=== PATIENT | female | born 1980 | race African-American/Black ===

== ENCOUNTER 2016-08-17 04:45 | Inpatient (IN) | payer MEDICAID ==
[2016-08-17 06:02] VITALS: BP 190/92
[2016-08-17] MEDS: Sodium Chloride 0.9% 1,000 ML IV SCH ×2 (07:30→17:11)
[2016-08-17 07:38] LABS: HEMOGLOBIN 8.3 gm/dL (11.7-15.5); MEAN CELL VOLUME 72.8 fl (81-100); MEAN CORPUSCULAR HEMOGLOBIN 24.2 pg (27.0-31.0); MEAN CORPUSCULAR HGB CONC 33.3 pg (28.0-36.0); MEAN PLATELET VOLUME 7.2 fl; PLATELET COUNT 558 Th/cmm (150-400); RED BLOOD COUNT 3.44 Mil/cmm (3.80-5.10); RED CELL DISTRIBUTION WIDTH 13.3 % (11.5-20.0); WHITE BLOOD COUNT 16.2 Th/cmm (4.8-10.8)
[2016-08-17 07:45] LABS: ALB/GLOB RATIO 0.6 (1.0-1.8); ANION GAP 5.2 (7.0-16.0); BILIRUBIN,TOTAL 0.1 mg/dL (0.3-1.0); BUN/CREATININE RATIO 6.4; CALCIUM SERUM 8.2 mg/dL (8.6-10.3); CARBON DIOXIDE 20.1 mEq/L (21.0-31.0); CREATININE - SERUM 2.2 mg/dL (0.6-1.2); POTASSIUM SERUM 3.3 mEq/L (3.5-5.1)
[2016-08-17] MEDS: HYDROmorphone 1 mg/mL 1mL Syr IVP PRN ×2 (08:30→18:35)
[2016-08-17 08:34] LABS: ANISOCYTOSIS 1+; BAND NEUTROPHILE 2 % (0-10); EOSINOPHIL 2 % (0-5); NEUTROPHILS 75 % (40-80); PLATELET ESTIMATE INCREASED PLATELETS (NORMAL); PLATELET MORPHOLOGY GIANT PLATELETS SEEN (NORMAL); TOTAL CELLS COUNTED 100
[2016-08-17] MEDS ORDERED: Potassium Phosphate 20 MMOLE in Sodium Chloride 0.9% 250 ML IV ONE (08:49)
[2016-08-17] MEDS ORDERED: cefTRIAXone 1 GM in Sodium Chloride 0.9% 50 ML IV SCH (09:00)
[2016-08-17] MEDS ORDERED: KCL 20mEq/100mL Premix 20 MEQ/100 ML PIGGYBACK IV ONE (10:04)
--- NOTE | 2016-08-17 10:31 | Infectious Disease Prog Note ---
Infectious Disease Subjective - Review of Systems Service Date: 08/17/16 Subjective: [id number] Infectious Disease Objective - Results Result Diagrams: 08/17/16 06:56 08/17/16 06:56 Recent Labs: Laboratory Last Values WBC 16.2 Th/cmm (4.8-10.8) H 08/17/16 06:56 RBC 3.44 Mil/cmm (3.80-5.10) L 08/17/16 06:56 Hgb 8.3 gm/dL (11.7-15.5) L 08/17/16 06:56 Hct 25.0 % (35.0-45.0) L 08/17/16 06:56 MCV 72.8 fl (81-100) L 08/17/16 06:56 MCH 24.2 pg (27.0-31.0) L 08/17/16 06:56 MCHC Differential 33.3 pg (28.0-36.0) 08/17/16 06:56 RDW 13.3 % (11.5-20.0) 08/17/16 06:56 Plt Count 558 Th/cmm (150-400) H 08/17/16 06:56 MPV 7.2 fl 08/17/16 06:56 Band Neutrophils % 2 % (0-10) 08/17/16 06:56 Neutrophils (Manual) 75 % (40-80) 08/17/16 06:56 Lymphocytes 15 % (20-50) L 08/17/16 06:56 Monocytes 6 % (2-10) 08/17/16 06:56 Eosinophils 2 % (0-5) 08/17/16 06:56 Platelet Estimate INCREASED PLATELETS (NORMAL) 08/17/16 06:56 Platelet Morphology GIANT PLATELETS SEEN (NORMAL) 08/17/16 06:56 Anisocytosis 1+ 08/17/16 06:56 RBC Morph Micro Appear ABNORMAL (NORMAL) 08/17/16 06:56 Sodium 133 mEq/L (136-145) L 08/17/16 06:56 Potassium 3.3 mEq/L (3.5-5.1) L 08/17/16 06:56 Chloride 111 mEq/L (98-107) H 08/17/16 06:56 Carbon Dioxide 20.1 mEq/L (21.0-31.0) L 08/17/16 06:56 Anion Gap 5.2 (7.0-16.0) L 08/17/16 06:56 BUN 14 mg/dL (7-25) 08/17/16 06:56 Creatinine 2.2 mg/dL (0.6-1.2) H 08/17/16 06:56 Est GFR ( Amer) 32.5 ml/min 08/17/16 06:56 Est GFR (Non-Af Amer) 26.8 ml/min 08/17/16 06:56 BUN/Creatinine Ratio 6.4 08/17/16 06:56 Glucose 282 mg/dL (70-105) H 08/17/16 06:56 Hemoglobin A1c % 14.5 % (4.0-6.0) H 08/17/16 06:56 Calcium 8.2 mg/dL (8.6-10.3) L 08/17/16 06:56 Total Bilirubin 0.1 mg/dL (0.3-1.0) L 08/17/16 06:56 AST 9 U/L (13-39) L 08/17/16 06:56 ALT 7 U/L (7-52) 08/17/16 06:56 Alkaline Phosphatase 132 U/L (34-104) H 08/17/16 06:56 Total Protein 6.1 gm/dL (6.0-8.3) 08/17/16 06:56 Albumin 2.2 gm/dL (3.7-5.3) L 08/17/16 06:56 Globulin 3.9 gm/dL 08/17/16 06:56 Albumin/Globulin Ratio 0.6 (1.0-1.8) L 08/17/16 06:56 - Physical Exam Vitals and I&O: Vital Signs Temp 99.0 F 08/17/16 08:00 Pulse 116 08/17/16 08:49 Resp 19 08/17/16 08:00 BP 160/94 08/17/16 08:00 Pulse Ox 99 08/17/16 08:00 Intake & Output 08/16/16 08/17/16 08/17/16 18:59 06:59 18:59 Weight (lbs) 81.647 kg Active Medications: Current Medications Clonidine HCl (Catapres) 0.1 mg PO Q8HR PRN PRN Reason: SBP GREATER THAN 160 Stop: 10/16/16 06:25 Last Admin: 08/17/16 08:49 Dose: 0.1 mg Hydromorphone HCl (Dilaudid) 1 mg IVP Q6HR PRN PRN Reason: Pain (Moderate) Stop: 10/16/16 06:23 Last Admin: 08/17/16 08:30 Dose: 1 mg Sodium Chloride (Nacl 0.9%) 1,000 mls @ 100 mls/hr IV .Q10H [facility] Stop: 10/16/16 06:29 Last Admin: 08/17/16 07:30 Dose: 100 mls/hr Metronidazole (Flagyl) 500 mg in 100 mls @ 100 mls/hr IV Q8HR [facility] Stop: 10/16/16 12:59 Ceftriaxone Sodium 1 gm/ (Sodium Chloride) 50 mls @ 100 mls/hr IV Q24HR [facility] Stop: 10/16/16 08:59 Potassium Chloride (Potassium Chloride) 20 meq in 100 mls @ 50 mls/hr IV X1 ONE Stop: 08/17/16 12:03 Insulin Aspart (Novolog Insulin Sliding Scale) 0 units SUBQ Q6HR [facility] PRN Reason: Protocol Stop: 10/16/16 11:59 Ondansetron HCl (Zofran) 4 mg IV Q6H PRN PRN Reason: Nausea / Vomiting Stop: 10/16/16 06:22 Last Admin: 08/17/16 08:40 Dose: 4 mg
[2016-08-17] MEDS: cefTRIAXone 1 GM in 0.9% NS 50 ML IV SCH (11:00)
--- NOTE | 2016-08-17 11:01 | Diagnostic Imaging Report ---
Portable chest x-ray History: Cough Allowing for portable technique the heart size is normal. No focal pulmonary parenchymal processes. No hilar or mediastinal abnormalities. Impression: No acute abnormalities.
--- NOTE | 2016-08-17 11:31 | History & Physical ---
CHIEF COMPLAINT: Fever, nausea and vomiting. HISTORY OF PRESENT ILLNESS: This is the case of a 36-year-old female referred 3 days ago when she started with fever, diarrhea, reason why she went to [facility]. The patient was transferred to the hospital to continue treatment. PAST MEDICAL HISTORY: Diabetes mellitus, type 1, HIV positive. PAST SURGICAL HISTORY: The patient has amputation of the 2 and ____ right toes secondary to diabetes mellitus. SOCIAL HISTORY: The patient lives with family members. She denies use of alcohol or drugs. ALLERGIES: THE PATIENT IS ALLERGIC TO CODEINE AND ____, MORPHINE, PERCOCET. PAST SURGICAL HISTORY: The patient has amputation of the second and third right toes. MEDICATIONS: The patient is taking treatment for HIV. She has her own medications available. FAMILY HISTORY: There is diabetes and hypertension in father and mother. REVIEW OF SYSTEMS: HEENT: The patient referred that she had headache and she has a bump in the lateral left side of head that is oozing with some drainage. LUNGS: The patient denies shortness of breath. HEART: The patient denies chest pain. ABDOMEN: The patient referred nausea, vomiting and diarrhea. EXTREMITIES: Unremarkable. NEUROLOGICAL: Unremarkable. PHYSICAL EXAMINATION: GENERAL: Does reveal a fairly nourished and developed female, awake, alert complaining of headache. HEENT: Head. The patient has a 4 cm bump in the lateral left side of the head, apparently with some drainage. The patient referred pain. Eyes: Pupils reactive to light. Fundus not examined at this time. Nose: No evidence of nasal obstruction. Ears: No evidence of any discharge. Mouth: Fairly ____. LUNGS: Bilateral air entry. HEART: Regular rhythm. ABDOMEN: Soft, nontender, bowel sound is present. Bowel sounds are increased. EXTREMITIES: No edema. NEUROLOGICAL: The patient is awake, alert and complaining of headache. Nerves 2-12 grossly intact. No neurological deficit at this moment. IMPRESSION: 1. Diarrhea. 2. Elevated WBC. 3. Human immunodeficiency virus positive. 4. Possible cellulitis in the right side of head. PLAN: 1. The patient will be admitted in the medical surgical floor. 2. Consult with Dr. Trivedi, infectology. 3. Continue with home medications. 4. Metronidazole IV. 5. Ceftriaxone IV. 6. Chest x-ray and head x-ray are requested. 7. Diabetic diet. JOB# [id number]
[2016-08-17] MEDS: metroNIDAZOLE 500mg/NS 100mL 500 MG/100 ML BAG IV SCH ×2 (12:08→21:49)
[2016-08-17] MEDS: INSULIN ASPART SLIDING SCALE 100 UNITS/ML UNIT SUBQ SCH ×2 (12:18→17:10)
[2016-08-17] MEDS ORDERED: metroNIDAZOLE 500mg/NS 100mL 500 MG/100 ML BAG IV SCH (13:00)
[2016-08-18] MEDS: HYDROmorphone 1 mg/mL 1mL Syr IVP PRN ×5 (00:16→20:47)
[2016-08-18] MEDS: INSULIN ASPART SLIDING SCALE 100 UNITS/ML UNIT SUBQ SCH ×4 (01:39→18:16)
--- NOTE | 2016-08-18 02:13 | Consultation ---
INFECTIOUS DISEASE CONSULTATION REFERRING PHYSICIAN: Dr. Olmedo. REASON FOR CONSULTATION: HIV and gastroenteritis. HISTORY OF PRESENT ILLNESS: The patient is 36-year-old female with past medical history of HIV for 10 years with normal CD4 count as per the patient and undetectable viral load, diabetes mellitus, and hypertension, who presented to [facility] for fever, chills, nausea, vomiting, and diarrhea for the last 3 days. It was associated with headaches. On initial evaluation, the patient's temperature was 99.3 degrees Fahrenheit and WBC count was 18,100 with neutrophil 78%. The patient was diagnosed to have sepsis, started on Rocephin and Flagyl for gastroenteritis. For insurance purposes, the patient was transferred to [facility] for further care. PAST MEDICAL HISTORY: Diabetes mellitus, diabetic foot ulcer in the past treated, CKD stage 3, diabetes, dyslipidemia, peripheral neuropathy, proteinuria, hypertension, and anemia. ALLERGIES: NKDA. MEDICATIONS: As per medication reconciliation sheet. Antiretroviral therapy includes Tivicay 50 mg p.o. daily, Epzicom 1 tab p.o. daily. FAMILY HISTORY: Noncontributory. SOCIAL HISTORY: The patient lives at home. Denies any smoking, alcohol, or drug use. REVIEW OF SYSTEMS: GENERAL: The patient has fever and chills. Has generalized weakness. HEENT: No diplopia, no photophobia, and no sore throat. RESPIRATORY: The patient has no cough and no shortness of breath. CARDIOVASCULAR: The patient has no chest pain and no palpitation. GASTROINTESTINAL: The patient has nausea, vomiting, diarrhea, and abdominal pain. No constipation. GENITOURINARY: The patient has some dysuria, but improving. CENTRAL NERVOUS SYSTEM: The patient has had headache, which is improving. No seizures, no focal weakness. No dizziness. PHYSICAL EXAMINATION: GENERAL: The patient is well nourished, well groomed, not in acute distress. The patient is comfortable lying in the bed, not in acute distress. VITAL SIGNS: Current vital signs show temperature is 99 degrees Fahrenheit, pulse is 116, respiration is 19, and blood pressure 160/94. HEENT: Head is normocephalic and atraumatic. Oral cavity moist. Aromas tongue. Eyes: No pallor, no icterus. PERRLA, EOMI. NECK: Supple. No JVD. No carotid bruit. Trachea in midline. CHEST: Bilateral breath sounds. No crackles or wheezing. HEART: S1 and S2 within normal limits. Regular rhythm. No murmur, no gallop. ABDOMEN: Soft, nontender, and nondistended. Bowel sounds present. EXTREMITIES: No cyanosis, no clubbing, and no edema. NEUROLOGIC: Alert, awake, and oriented x 3. No focal deficits. LABORATORY DATA: Current labs shows WBC count is 16,200, hemoglobin 8.3, hematocrit 25, and platelets are a 558,000 and neutrophils 75%. Sodium is 133, potassium 3.3, chloride 111, bicarb is 20, BUN is 14, creatinine 2.2, and glucose is 282. LFTs reviewed. Urinalysis showed wbc 11-15, rbc 11-15, bacteria none, nitrite negative, leukoesterase negative. IMPRESSION: 1. Leukocytosis, fever, tachycardia, and sepsis. 2. Diarrhea with gastroenteritis. 3. HIV, unknown staging. 4. Diabetes mellitus type 2. 5. Hypertension. 6. Acute renal failure on chronic kidney disease. 7. Hypertension. RECOMMENDATIONS: We will check renal ultrasound. Check HIV viral load. Check the CD4 count. Agree with the Rocephin and Flagyl at this time. Check stool for C. difficile. Check stool cultures and ova and parasite, GRD antigen. The patient's condition is guarded. IV fluid support. Thank you Dr. Olmedo for involving me in taking care of this patient. JOB# [id number] [facility]OSPITALDavid
[2016-08-18 02:42] LABS: URINE COLOR YELLOW; URINE GLUCOSE (UA) 500 mg/dL (NEGATIVE)
[2016-08-18 02:43] LABS: URINE BILIRUBIN NEGATIVE (NEGATIVE); URINE BLOOD MODERATE (NEGATIVE); URINE KETONE 15 mg/dL (NEGATIVE); URINE PROTEIN >300 mg/dL (NEGATIVE); URINE UROBILINOGEN 0.2 E.U./dL (0.2 - 1.0)
[2016-08-18 02:44] LABS: URINE BACTERIA OCCASIONAL /hpf (NONE SEEN); URINE EPITHELIAL CELLS NONE SEEN /lpf (FEW); URINE WBC 0-2 /hpf (0-5)
[2016-08-18] MEDS: metroNIDAZOLE 500mg/NS 100mL 500 MG/100 ML BAG IV SCH ×3 (05:40→20:47)
[2016-08-18 07:48] LABS: % BASOPHILS 0.9 % (0.0-2.0); % EOSINOPHILS 1.4 % (0.0-5.0); % LYMPHOCYTES 18.7 % (20.0-50.0); % MONOCYTES 4.8 % (2.0-10.0); % NEUTROPHILS 74.2 % (40.0-80.0); MEAN CORPUSCULAR HEMOGLOBIN 24.5 pg (27.0-31.0); MEAN PLATELET VOLUME 7.3 fl; NEUTROPHILE ABSOLUTE 10.7 Th/cmm (1.8-8.0); PLATELET COUNT 552 Th/cmm (150-400); RED BLOOD COUNT 3.26 Mil/cmm (3.80-5.10); RED CELL DISTRIBUTION WIDTH 13.5 % (11.5-20.0); WHITE BLOOD COUNT 14.4 Th/cmm (4.8-10.8)
[2016-08-18 07:59] LABS: HEMATOCRIT 23.5 % (35.0-45.0)
[2016-08-18 08:39] LABS: ALB/GLOB RATIO 0.5 (1.0-1.8); ANION GAP 8.8 (7.0-16.0); BILIRUBIN,TOTAL 0.1 mg/dL (0.3-1.0); BUN/CREATININE RATIO 7.7; CALCIUM SERUM 8.1 mg/dL (8.6-10.3); CARBON DIOXIDE 18.3 mEq/L (21.0-31.0); CREATININE - SERUM 2.2 mg/dL (0.6-1.2); POTASSIUM SERUM 4.1 mEq/L (3.5-5.1)
--- NOTE | 2016-08-18 09:13 | General Progress Note ---
Subjective - Review of Systems Service Date: 08/18/16 Subjective: I have headache Objective - Results Result Diagrams: 08/18/16 06:45 08/18/16 06:45 Recent Labs: Laboratory Last Values WBC 14.4 Th/cmm (4.8-10.8) H 08/18/16 06:45 RBC 3.26 Mil/cmm (3.80-5.10) L 08/18/16 06:45 Hgb 8.0 gm/dL (11.7-15.5) L 08/18/16 06:45 Hct 23.5 % (35.0-45.0) L* 08/18/16 06:45 MCV 72.0 fl (81-100) L 08/18/16 06:45 MCH 24.5 pg (27.0-31.0) L 08/18/16 06:45 MCHC Differential 34.0 pg (28.0-36.0) 08/18/16 06:45 RDW 13.5 % (11.5-20.0) 08/18/16 06:45 Plt Count 552 Th/cmm (150-400) H 08/18/16 06:45 MPV 7.3 fl 08/18/16 06:45 Neutrophils % 74.2 % (40.0-80.0) 08/18/16 06:45 Band Neutrophils % 2 % (0-10) 08/17/16 06:56 Lymphocytes % 18.7 % (20.0-50.0) L 08/18/16 06:45 Monocytes % 4.8 % (2.0-10.0) 08/18/16 06:45 Eosinophils % 1.4 % (0.0-5.0) 08/18/16 06:45 Basophils % 0.9 % (0.0-2.0) 08/18/16 06:45 Neutrophils (Manual) 75 % (40-80) 08/17/16 06:56 Lymphocytes 15 % (20-50) L 08/17/16 06:56 Monocytes 6 % (2-10) 08/17/16 06:56 Eosinophils 2 % (0-5) 08/17/16 06:56 Platelet Estimate INCREASED PLATELETS (NORMAL) 08/17/16 06:56 Platelet Morphology GIANT PLATELETS SEEN (NORMAL) 08/17/16 06:56 Anisocytosis 1+ 08/17/16 06:56 RBC Morph Micro Appear ABNORMAL (NORMAL) 08/17/16 06:56 Sodium 133 mEq/L (136-145) L 08/18/16 06:45 Potassium 4.1 mEq/L (3.5-5.1) 08/18/16 06:45 Chloride 110 mEq/L (98-107) H 08/18/16 06:45 Carbon Dioxide 18.3 mEq/L (21.0-31.0) L 08/18/16 06:45 Anion Gap 8.8 (7.0-16.0) 08/18/16 06:45 BUN 17 mg/dL (7-25) 08/18/16 06:45 Creatinine 2.2 mg/dL (0.6-1.2) H 08/18/16 06:45 Est GFR ( Amer) 32.5 ml/min 08/18/16 06:45 Est GFR (Non-Af Amer) 26.8 ml/min 08/18/16 06:45 BUN/Creatinine Ratio 7.7 08/18/16 06:45 Glucose 220 mg/dL (70-105) H 08/18/16 06:45 POC Glucose 204 MG/DL (70 - 105) H 08/18/16 05:44 Hemoglobin A1c % 14.5 % (4.0-6.0) H 08/17/16 06:56 Calcium 8.1 mg/dL (8.6-10.3) L 08/18/16 06:45 Phosphorus 2.9 mg/dL (2.5-5.0) 08/17/16 06:56 Total Bilirubin 0.1 mg/dL (0.3-1.0) L 08/18/16 06:45 AST 10 U/L (13-39) L 08/18/16 06:45 ALT 6 U/L (7-52) L 08/18/16 06:45 Alkaline Phosphatase 125 U/L (34-104) H 08/18/16 06:45 Total Protein 6.1 gm/dL (6.0-8.3) 08/18/16 06:45 Albumin 2.1 gm/dL (3.7-5.3) L 08/18/16 06:45 Globulin 4.0 gm/dL 08/18/16 06:45 Albumin/Globulin Ratio 0.5 (1.0-1.8) L 08/18/16 06:45 Urine Source CLEAN C 08/18/16 02:15 Urine Color YELLOW 08/18/16 02:15 Urine Clarity CLEAR (CLEAR) 08/18/16 02:15 Urine pH 6.0 08/18/16 02:15 Ur Specific [place] 1.015 (1.005-1.030) 08/18/16 02:15 Urine Protein >300 mg/dL (NEGATIVE) H 08/18/16 02:15 Urine Glucose (UA) 500 mg/dL (NEGATIVE) H 08/18/16 02:15 Urine Ketones 15 mg/dL (NEGATIVE) H 08/18/16 02:15 Urine Blood MODERATE (NEGATIVE) H 08/18/16 02:15 Urine Nitrate NEGATIVE (NEGATIVE) 08/18/16 02:15 Urine Bilirubin NEGATIVE (NEGATIVE) 08/18/16 02:15 Urine Urobilinogen 0.2 E.U./dL (0.2 - 1.0) 08/18/16 02:15 Ur Leukocyte Esterase NEGATIVE (NEGATIVE) 08/18/16 02:15 Urine RBC 5-10 /hpf (0-5) H 08/18/16 02:15 Urine WBC 0-2 /hpf (0-5) 08/18/16 02:15 Ur Epithelial Cells NONE SEEN /lpf (FEW) 08/18/16 02:15 Urine Bacteria OCCASIONAL /hpf (NONE SEEN) 08/18/16 02:15 - Physical Exam Vitals and I&O: Vital Signs Temp 98.8 F 08/18/16 07:50 Pulse 103 08/18/16 07:50 Resp 20 08/18/16 07:50 BP 149/84 08/18/16 07:50 Pulse Ox 98 08/18/16 07:50 Intake & Output 08/17/16 08/18/16 08/18/16 18:59 06:59 18:59 Intake Total 1768.333 600 Balance 1768.333 600 Intake: Intake, IV Amount 1118.333 100 Sodium Chloride 0.9% 1, 968.333 000 ml @ 100 mls/hr IV . Q10H [facility] Rx#:[id number] cefTRIAXone 1 gm In 50 Sodium Chloride 0.9% 50 ml @ 100 mls/hr IV Q24HR [facility] Rx#:[id number] metroNIDAZOLE 500mg/NS 100 100 100mL 500 mg In 100 ml @ 100 mls/hr IV Q8H [facility] Rx# :[id number] Oral 650 500 Other: # Voids 3 4 Active Medications: Current Medications Clonidine HCl (Catapres) 0.1 mg PO Q8HR PRN PRN Reason: SBP GREATER THAN 160 Stop: 10/16/16 06:25 Last Admin: 08/18/16 00:14 Dose: 0.1 mg Hydromorphone HCl (Dilaudid) 1 mg IVP Q6HR PRN PRN Reason: Pain (Moderate) Stop: 10/16/16 06:23 Last Admin: 08/18/16 06:52 Dose: 1 mg Sodium Chloride (Nacl 0.9%) 1,000 mls @ 100 mls/hr IV .Q10H [facility] Stop: 10/16/16 06:29 Last Admin: 08/17/16 17:11 Dose: 100 mls/hr Ceftriaxone Sodium 1 gm/ (Sodium Chloride) 50 mls @ 100 mls/hr IV Q24HR [facility] Stop: 10/16/16 10:59 Last Infusion: 08/17/16 12:00 Dose: Infused Metronidazole (Flagyl) 500 mg in 100 mls @ 100 mls/hr IV Q8H [facility] Stop: 10/16/16 12:59 Last Admin: 08/18/16 05:40 Dose: 100 mls/hr Insulin Aspart (Novolog Insulin Sliding Scale) 0 units SUBQ Q6HR [facility] PRN Reason: Protocol Stop: 10/16/16 11:59 Last Admin: 08/18/16 06:32 Dose: 4 units Insulin Detemir (Levemir Insulin) 45 units SUBQ HS [facility] PRN Reason: Protocol Stop: 10/17/16 20:59 Ondansetron HCl (Zofran) 4 mg IV Q6H PRN PRN Reason: Nausea / Vomiting Stop: 10/16/16 06:22 Last Admin: 08/18/16 08:48 Dose: 4 mg General: Alert, Oriented x3 HEENT: Other (Pain in left head area) Neck: Supple Cardiovascular: Regular rate Lungs: Clear to auscultation Abdomen: Bowel sounds Extremities: Other (No edema) Neurological: Normal gait Skin: Other (Warm and dry) Psych/Mental Status: Mental status NL Assessment/Plan - Assessment Assessment: Patient is awake, alert, complaining of headache. Dx: Vomit and diarrhea, Leukocytosis, AKD over CKD, Anemia, HIV. - Plan Plan: Head CT is request. Blood is transfused. Consult with Nephro is requested. Will continuing monitoring.
[2016-08-18] MEDS: Sodium Chloride 0.9% 1,000 ML IV SCH (10:50)
[2016-08-18] MEDS: cefTRIAXone 1 GM in 0.9% NS 50 ML IV SCH (10:53)
[2016-08-18 15:17] LABS: INR 0.9 (0.5-1.4); PROTHROMBIN TIME (TEST) 8.9 SECONDS (9.5-11.5)
--- NOTE | 2016-08-18 15:42 | Diagnostic Imaging Report ---
Head CT without intravenous contrast Indication: Headache Comparison: None Technique: Axial images were obtained from the vertex to the skull base without IV contrast. Coronal reconstructions were made. Total DLP: 612, [id number] FINDINGS: Images of the brain obtained without contrast demonstrate no acute hemorrhage. No mass lesions identified. The ventricles and basal cisterns are patent. The [place]-white matter differentiation is preserved. There is no mass effect or midline shift. No evidence of a skull fracture. There is opacification of paranasal sinuses, partially visualized. There is soft tissue swelling versus and possible subcutaneous nodule seen along the high left posterior scalp. Atherosclerosis is noted. IMPRESSION: No acute intracranial abnormality. Soft tissue swelling versus subcutaneous nodule of the left high posterior scalp, please correlate clinically. Sinusitis, partially visualized Atherosclerotic vascular disease.
[2016-08-18] MEDS: TIVICAY 50 MG PO SCH (17:02)
[2016-08-18] MEDS ORDERED: Insulin Detemir 100 units/mL 10mL Vial SUBQ SCH (21:00)
[2016-08-19] MEDS: HYDROmorphone 1 mg/mL 1mL Syr IVP PRN ×5 (00:43→21:06)
[2016-08-19] MEDS: INSULIN ASPART SLIDING SCALE 100 UNITS/ML UNIT SUBQ SCH ×4 (00:43→23:57)
--- NOTE | 2016-08-19 04:21 | Consultation ---
ATTENDING PHYSICIAN: Blake Olmedo M.D. CORPORATE COMPLIANCE OFFICER: Trung Tran M.D. REASON FOR CONSULTATION: Worsening kidney function, electrolyte imbalance and fluid management. HISTORY OF PRESENT ILLNESS: This is a 36-year-old -[place] female with past medical history of chronic kidney disease, who came in from [facility] for further management. A few hours prior to admission, the patient developed persistent nausea and vomiting followed by diarrhea and fever. She presented to [facility]. She received Rocephin, Flagyl, Zofran as well as Reglan. She was then transferred to [facility]. Her white count was 16.2 with a hemoglobin/hematocrit of 8.3/25. Temperature was 99.4 degrees. She was diagnosed to have chronic kidney disease 5 years ago. Her BUN/creatinine today were 70/2.2. PAST MEDICAL HISTORY: 1. HIV diagnosed in 2004, but she does not have an age-related complex. She was infected by her . 2. Chronic kidney disease. 3. Essential hypertension. 4. Type 1 diabetes mellitus since , now out of control. 5. Right foot cellulitis. PAST SURGICAL HISTORY: 1. Status post right second digit amputation. 2. Status post appendectomy. CURRENT MEDICATIONS: She is currently on hydromorphone, detemir, ondansetron, ceftriaxone, clonidine, metronidazole. ALLERGIES: ASPIRIN AND CODEINE. SOCIAL HISTORY: No history of alcohol or tobacco use. 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 FAMILY HISTORY: Significant for hypertension as well as diabetes. REVIEW OF SYSTEMS: CONSTITUTIONAL: She did have fever, nausea and vomiting. Appetite had been poor due to this. HEENT: No mention of headaches, no dizziness. CARDIORESPIRATORY: No shortness of breath, chest pain, palpitations, diaphoresis or cough. She has a history of hypertension. ENDOCRINE: History of diabetes since , no thyroid abnormalities, no dyslipidemia. MUSCULOSKELETAL: Multiple joint arthralgias. GASTROINTESTINAL: Nausea and vomiting, diarrhea, poor appetite due to her nausea and vomiting, mild abdominal discomfort, presence of diarrhea. No hematemesis, melena, or hematochezia. HEMATOLOGIC: She has a history of anemia, more likely of chronic disease. GENITOURINARY: She has a history of chronic kidney disease. At this point, no dysuria nor hematuria. NEUROPSYCHIATRIC: No syncopal episode nor seizure activity. PHYSICAL EXAMINATION: GENERAL: The patient is alert, verbal, comfortable. VITAL SIGNS: Blood pressure is 137/79, pulse 101, temperature 98.4 degrees. SKIN: Poor turgor, warm, no rash, no jaundice appreciated. HEENT: Head normocephalic, atraumatic. Eyes, extraocular muscles intact. Pupils equal, round, reactive to light and accommodation. Anicteric sclerae, pale conjunctivae. Nose, midline nasal septum. Mouth: Dry mucosa with adequate dentition. NECK: Supple, no adenopathy, no thyromegaly, no bruits. Trachea palpated in the midline. CHEST AND CVS: S1, S2. No rub, murmur nor gallop appreciated. Point of maximal impulse fifth intercostal space, left midclavicular line. No abdominal or femoral bruits appreciated. LUNGS: Equal expansion. No use of accessory muscles. No supraclavicular retractions, decreased breath sounds, clear to auscultation without any wheeze. BREASTS: Symmetrical, without any discharge. ABDOMEN: Obese, soft, positive for bowel sounds. No bruits either diastolic or systolic. RECTAL: Lax sphincter tone. GENITOURINARY: Normal-appearing female genitalia. MUSCULOSKELETAL: No effusions present in her joints, but unable to assess her range of motion. EXTREMITIES: No evidence of edema, cyanosis or clubbing with palpable femoral, popliteal, dorsalis pedis pulses. NEUROLOGIC: The patient is alert, verbal, motor is 5/5. Cranial nerves 2-12 intact. Sensory intact. LABORATORY DATA: Sodium 133, potassium 4.1, chloride 110, bicarbonate 18, BUN 17, creatinine 2.2, glucose 220, calcium 8.1, phosphorous 2.9, albumin 2.1. Hemoglobin A1c 14.5%. Chest x-ray, no acute disease. White count 14.4, hemoglobin 8, hematocrit 23.5, polys 74.2%, platelets 552. IMPRESSION: 1. Acute kidney injury on chronic kidney disease MDRD GFR 32 mL per minute, stage 3. Chronic kidney disease is secondary to possibilities of diabetic nephropathy, hypertensive nephrosclerosis, human immunodeficiency virus associated nephropathy, as well as chronic interstitial nephritis with exposure to multiple human immunodeficiency virus medications. Acute kidney injury is initially due to prerenal azotemia. Physical examination did show poor skin turgor, dry oral mucosa. She did have a history of nausea and vomiting as well as diarrhea. She was unable to replenish both her sensible and insensible fluid losses. This has led to dehydration and a decrease in effective circulating volume. Her prerenal azotemia then progressed to acute tubular injury. 2. Leukocytosis, fever, nausea and vomiting as well as diarrhea likely due to acute gastroenteritis, possibility of human immunodeficiency virus effects in the presence of ____, cryptosporidium, and Yersinia. 3. Type 1 diabetes mellitus, out of control with chronic kidney disease. 4. Essential hypertension with chronic kidney disease. 5. Anemia of chronic kidney disease (human immunodeficiency virus, chronic kidney disease, diabetes mellitus as well as hypertension). 6. Severe malnutrition. 7. Human immunodeficiency virus, but no age-related complex. 8. Right foot cellulitis, status post amputation of right first digit. 9. Anion gap metabolic acidosis likely secondary to diarrhea. PLAN: 1. Continue with IV fluids. 2. Urine spot sodium, eosinophils and creatinine. 3. Urine microalbumin to creatinine ratio. 4. Renal ultrasound. 5. Follow up electrolytes and uric acid. 6. Follow up stool workup, blood culture x2 as well as urine C and S. 7. Start patient on blood pressure medications. Thank you Dr. Olmedo for this consult. I will follow the patient closely with you. JOB# [id number]
[2016-08-19] MEDS: metroNIDAZOLE 500mg/NS 100mL 500 MG/100 ML BAG IV SCH ×3 (06:00→20:51)
[2016-08-19] MEDS ORDERED: Dextrose 50% 50 mL Abboject IVP ONE ×3 (06:28→12:09)
[2016-08-19] MEDS: Dextrose 50% 50 mL Abboject IVP ONE (06:30)
[2016-08-19] MEDS: TIVICAY 50 MG PO SCH (08:25)
[2016-08-19 09:18] LABS: HEMOGLOBIN 9.2 gm/dL (11.7-15.5); MEAN CELL VOLUME 73.4 fl (81-100); MEAN CORPUSCULAR HEMOGLOBIN 24.8 pg (27.0-31.0); MEAN CORPUSCULAR HGB CONC 33.8 pg (28.0-36.0); MEAN PLATELET VOLUME 6.6 fl; PLATELET COUNT 658 Th/cmm (150-400); RED BLOOD COUNT 3.69 Mil/cmm (3.80-5.10); RED CELL DISTRIBUTION WIDTH 14.2 % (11.5-20.0)
[2016-08-19 09:30] LABS: HEMATOCRIT 27.1 % (35.0-45.0); WHITE BLOOD COUNT 22.6 Th/cmm (4.8-10.8)
[2016-08-19 09:44] LABS: ALB/GLOB RATIO 0.5 (1.0-1.8); ANION GAP 9.2 (7.0-16.0); BILIRUBIN,TOTAL 0.2 mg/dL (0.3-1.0); BUN/CREATININE RATIO 7.3; CALCIUM SERUM 8.5 mg/dL (8.6-10.3); CARBON DIOXIDE 18.6 mEq/L (21.0-31.0); CREATININE - SERUM 2.2 mg/dL (0.6-1.2); MAGNESIUM 1.9 mg/dL (1.9-2.7); POTASSIUM SERUM 3.8 mEq/L (3.5-5.1); URIC ACID 5.2 mg/dL (2.3-6.6)
[2016-08-19 09:46] LABS: EOSINOPHIL 2 % (0-5); NEUTROPHILS 82 % (40-80); TOTAL CELLS COUNTED 100
[2016-08-19 09:47] LABS: ANISOCYTOSIS 1+; MICROCYTOSIS 3+; PLATELET ESTIMATE INCREASED PLATELETS (NORMAL); PLATELET MORPHOLOGY NORMAL (NORMAL); POLYCHROMASIA 1+
[2016-08-19] MEDS ORDERED: Diatrizoate Meglumine/Diatri 30 mL Sol PO ONE (10:53)
[2016-08-19] MEDS: cefTRIAXone 1 GM in 0.9% NS 50 ML IV SCH (11:04)
--- NOTE | 2016-08-19 12:15 | Infectious Disease Prog Note ---
Infectious Disease Subjective - Review of Systems Service Date: 08/19/16 Subjective: C/o headache, no fever. Infectious Disease Objective - Results Result Diagrams: 08/19/16 09:10 08/19/16 09:10 Recent Labs: Laboratory Last Values WBC 22.6 Th/cmm (4.8-10.8) H* D 08/19/16 09:10 RBC 3.69 Mil/cmm (3.80-5.10) L 08/19/16 09:10 Hgb 9.2 gm/dL (11.7-15.5) L 08/19/16 09:10 Hct 27.1 % (35.0-45.0) L D 08/19/16 09:10 MCV 73.4 fl (81-100) L 08/19/16 09:10 MCH 24.8 pg (27.0-31.0) L 08/19/16 09:10 MCHC Differential 33.8 pg (28.0-36.0) 08/19/16 09:10 RDW 14.2 % (11.5-20.0) 08/19/16 09:10 Plt Count 658 Th/cmm (150-400) H 08/19/16 09:10 MPV 6.6 fl 08/19/16 09:10 Neutrophils % 74.2 % (40.0-80.0) 08/18/16 06:45 Band Neutrophils % 2 % (0-10) 08/17/16 06:56 Lymphocytes % 18.7 % (20.0-50.0) L 08/18/16 06:45 Monocytes % 4.8 % (2.0-10.0) 08/18/16 06:45 Eosinophils % 1.4 % (0.0-5.0) 08/18/16 06:45 Basophils % 0.9 % (0.0-2.0) 08/18/16 06:45 Neutrophils (Manual) 82 % (40-80) H 08/19/16 09:10 Lymphocytes 10 % (20-50) L 08/19/16 09:10 Monocytes 6 % (2-10) 08/19/16 09:10 Eosinophils 2 % (0-5) 08/19/16 09:10 Platelet Estimate INCREASED PLATELETS (NORMAL) 08/19/16 09:10 Platelet Morphology NORMAL (NORMAL) 08/19/16 09:10 Polychromasia 1+ 08/19/16 09:10 Anisocytosis 1+ 08/19/16 09:10 Microcytosis 3+ 08/19/16 09:10 RBC Morph Micro Appear ABNORMAL (NORMAL) 08/19/16 09:10 PT 8.9 SECONDS (9.5-11.5) L 08/18/16 13:50 INR 0.90 (0.5-1.4) 08/18/16 13:50 Sodium 131 mEq/L (136-145) L 08/19/16 09:10 Potassium 3.8 mEq/L (3.5-5.1) 08/19/16 09:10 Chloride 107 mEq/L (98-107) 08/19/16 09:10 Carbon Dioxide 18.6 mEq/L (21.0-31.0) L 08/19/16 09:10 Anion Gap 9.2 (7.0-16.0) 08/19/16 09:10 BUN 16 mg/dL (7-25) 08/19/16 09:10 Creatinine 2.2 mg/dL (0.6-1.2) H 08/19/16 09:10 Est GFR ( Amer) 32.5 ml/min 08/19/16 09:10 Est GFR (Non-Af Amer) 26.8 ml/min 08/19/16 09:10 BUN/Creatinine Ratio 7.3 08/19/16 09:10 Glucose 81 mg/dL (70-105) 08/19/16 09:10 POC Glucose 49 MG/DL (70 - 105) L 08/19/16 11:44 Hemoglobin A1c % 14.5 % (4.0-6.0) H 08/17/16 06:56 Uric Acid 5.2 mg/dL (2.3-6.6) 08/19/16 09:10 Calcium 8.5 mg/dL (8.6-10.3) L 08/19/16 09:10 Phosphorus 2.9 mg/dL (2.5-5.0) 08/17/16 06:56 Magnesium 1.9 mg/dL (1.9-2.7) 08/19/16 09:10 Total Bilirubin 0.2 mg/dL (0.3-1.0) L 08/19/16 09:10 AST 12 U/L (13-39) L 08/19/16 09:10 ALT 6 U/L (7-52) L 08/19/16 09:10 Alkaline Phosphatase 151 U/L (34-104) H 08/19/16 09:10 Total Protein 6.7 gm/dL (6.0-8.3) 08/19/16 09:10 Albumin 2.3 gm/dL (3.7-5.3) L 08/19/16 09:10 Globulin 4.4 gm/dL 08/19/16 09:10 Albumin/Globulin Ratio 0.5 (1.0-1.8) L 08/19/16 09:10 Urine Source CLEAN C 08/18/16 02:15 Urine Color YELLOW 08/18/16 02:15 Urine Clarity CLEAR (CLEAR) 08/18/16 02:15 Urine pH 6.0 08/18/16 02:15 Ur Specific [place] 1.015 (1.005-1.030) 08/18/16 02:15 Urine Protein >300 mg/dL (NEGATIVE) H 08/18/16 02:15 Urine Glucose (UA) 500 mg/dL (NEGATIVE) H 08/18/16 02:15 Urine Ketones 15 mg/dL (NEGATIVE) H 08/18/16 02:15 Urine Blood MODERATE (NEGATIVE) H 08/18/16 02:15 Urine Nitrate NEGATIVE (NEGATIVE) 08/18/16 02:15 Urine Bilirubin NEGATIVE (NEGATIVE) 08/18/16 02:15 Urine Urobilinogen 0.2 E.U./dL (0.2 - 1.0) 08/18/16 02:15 Ur Leukocyte Esterase NEGATIVE (NEGATIVE) 08/18/16 02:15 Urine RBC 5-10 /hpf (0-5) H 08/18/16 02:15 Urine WBC 0-2 /hpf (0-5) 08/18/16 02:15 Ur Epithelial Cells NONE SEEN /lpf (FEW) 08/18/16 02:15 Urine Bacteria OCCASIONAL /hpf (NONE SEEN) 08/18/16 02:15 Absolute CD4 Count SEE REPORT 08/17/16 13:20 Blood Type O POSITIVE 08/18/16 09:20 Antibody Screen NEGATIVE 08/18/16 09:20 Crossmatch See Detail 08/18/16 09:20 - Physical Exam Vitals and I&O: Vital Signs Temp 99.0 F 08/19/16 11:53 Pulse 103 08/19/16 11:53 Resp 18 08/19/16 11:53 BP 146/80 08/19/16 11:53 Pulse Ox 98 08/19/16 11:53 Intake & Output 08/18/16 08/19/16 08/19/16 18:59 06:59 18:59 Intake Total 1950 100 Balance 1950 100 Intake: Intake, IV Amount 150 100 cefTRIAXone 1 gm In 50 Sodium Chloride 0.9% 50 ml @ 100 mls/hr IV Q24HR [facility] Rx#:[id number] metroNIDAZOLE 500mg/NS 100 100 100mL 500 mg In 100 ml @ 100 mls/hr IV Q8H [facility] Rx# :[id number] Oral 1800 Other: # Voids 4 # Bowel Movements 0 Active Medications: Current Medications Clonidine HCl (Catapres) 0.1 mg PO Q8HR PRN PRN Reason: SBP GREATER THAN 160 Stop: 10/16/16 06:25 Last Admin: 08/19/16 08:45 Dose: 0.1 mg Hydralazine HCl (Apresoline) 25 mg PO BID [facility] Stop: 10/17/16 16:59 Last Admin: 08/19/16 08:33 Dose: 25 mg Hydromorphone HCl (Dilaudid) 1 mg IVP Q4HR PRN PRN Reason: Pain (Moderate) Stop: 10/17/16 12:09 Last Admin: 08/19/16 06:00 Dose: 1 mg Sodium Chloride (Nacl 0.9%) 1,000 mls @ 100 mls/hr IV .Q10H [facility] Stop: 10/16/16 06:29 Last Admin: 08/18/16 10:50 Dose: 100 mls/hr Ceftriaxone Sodium 1 gm/ (Sodium Chloride) 50 mls @ 100 mls/hr IV Q24HR [facility] Stop: 10/16/16 10:59 Last Admin: 08/19/16 11:04 Dose: 100 mls/hr Metronidazole (Flagyl) 500 mg in 100 mls @ 100 mls/hr IV Q8H [facility] Stop: 10/16/16 12:59 Last Admin: 08/19/16 06:00 Dose: 100 mls/hr Insulin Aspart (Novolog Insulin Sliding Scale) 0 units SUBQ Q6HR [facility] PRN Reason: Protocol Stop: 10/16/16 11:59 Last Admin: 08/19/16 11:55 Dose: Not Given Insulin Detemir (Levemir Insulin) 45 units SUBQ HS [facility] PRN Reason: Protocol Stop: 10/17/16 20:59 Last Admin: 08/18/16 22:00 Dose: 45 units Ondansetron HCl (Zofran) 4 mg IV Q6H PRN PRN Reason: Nausea / Vomiting Stop: 10/16/16 06:22 Last Admin: 08/19/16 06:54 Dose: 4 mg Patient Own Med- (Tivicay 50mg Tablet) 1 PO DAILY [facility] Stop: 10/17/16 17:59 Last Admin: 08/19/16 08:25 Dose: 1 Patient Own Med- Epzicom (Abacavir 600mg/Lamivudine 300mg) 1 PO DAILY [facility] Stop: 10/17/16 17:59 Last Admin: 08/19/16 08:25 Dose: 1 Sodium Bicarbonate (Sodium Bicarbonate) 650 mg PO BID [facility] PRN Reason: Protocol Stop: 10/17/16 16:59 Last Admin: 08/19/16 08:24 Dose: 650 mg General: no acute distress, well developed, well nourished HEENT: atraumatic, normocephalic, PERRLA Neck: supple Cardiovascular: S1S2, regular Lungs: clear to auscultation bilaterally, clear to percussion Abdomen: soft, no tender, no distended Extremities: no cyanosis, no clubbing, no edema Neurological: awake, alert, oriented, CN 2-12 intact Skin: intact Infectious Disease Assmt/Plan - Assessment Assessment: Impression: 1. Leukocytosis. Worse, clinically, patient feels better.? reactive. 2. DM 3. HIV. CD4 435 (15%). 4. Gastroenteritis better. 5. HTN. 6. CKD 3. - Plan Plan: Continue ART. Continue rocephin and flagyl. repeat cbc.
[2016-08-19 12:25] LABS: URINE BILIRUBIN NEGATIVE (NEGATIVE); URINE BLOOD MODERATE (NEGATIVE); URINE COLOR YELLOW; URINE GLUCOSE (UA) 250 mg/dL (NEGATIVE); URINE KETONE NEGATIVE (NEGATIVE); URINE PROTEIN >300 mg/dL (NEGATIVE)
[2016-08-19 12:26] LABS: URINE BACTERIA OCCASIONAL /hpf (NONE SEEN); URINE EPITHELIAL CELLS MODERATE /lpf (FEW); URINE UROBILINOGEN 0.2 E.U./dL (0.2 - 1.0)
--- NOTE | 2016-08-19 12:44 | General Progress Note ---
Subjective - Review of Systems Service Date: 08/19/16 Subjective: My headache is less Objective - Results Result Diagrams: 08/19/16 09:10 08/19/16 09:10 Recent Labs: Laboratory Last Values WBC 22.6 Th/cmm (4.8-10.8) H* D 08/19/16 09:10 RBC 3.69 Mil/cmm (3.80-5.10) L 08/19/16 09:10 Hgb 9.2 gm/dL (11.7-15.5) L 08/19/16 09:10 Hct 27.1 % (35.0-45.0) L D 08/19/16 09:10 MCV 73.4 fl (81-100) L 08/19/16 09:10 MCH 24.8 pg (27.0-31.0) L 08/19/16 09:10 MCHC Differential 33.8 pg (28.0-36.0) 08/19/16 09:10 RDW 14.2 % (11.5-20.0) 08/19/16 09:10 Plt Count 658 Th/cmm (150-400) H 08/19/16 09:10 MPV 6.6 fl 08/19/16 09:10 Neutrophils % 74.2 % (40.0-80.0) 08/18/16 06:45 Band Neutrophils % 2 % (0-10) 08/17/16 06:56 Lymphocytes % 18.7 % (20.0-50.0) L 08/18/16 06:45 Monocytes % 4.8 % (2.0-10.0) 08/18/16 06:45 Eosinophils % 1.4 % (0.0-5.0) 08/18/16 06:45 Basophils % 0.9 % (0.0-2.0) 08/18/16 06:45 Neutrophils (Manual) 82 % (40-80) H 08/19/16 09:10 Lymphocytes 10 % (20-50) L 08/19/16 09:10 Monocytes 6 % (2-10) 08/19/16 09:10 Eosinophils 2 % (0-5) 08/19/16 09:10 Platelet Estimate INCREASED PLATELETS (NORMAL) 08/19/16 09:10 Platelet Morphology NORMAL (NORMAL) 08/19/16 09:10 Polychromasia 1+ 08/19/16 09:10 Anisocytosis 1+ 08/19/16 09:10 Microcytosis 3+ 08/19/16 09:10 RBC Morph Micro Appear ABNORMAL (NORMAL) 08/19/16 09:10 PT 8.9 SECONDS (9.5-11.5) L 08/18/16 13:50 INR 0.90 (0.5-1.4) 08/18/16 13:50 Sodium 131 mEq/L (136-145) L 08/19/16 09:10 Potassium 3.8 mEq/L (3.5-5.1) 08/19/16 09:10 Chloride 107 mEq/L (98-107) 08/19/16 09:10 Carbon Dioxide 18.6 mEq/L (21.0-31.0) L 08/19/16 09:10 Anion Gap 9.2 (7.0-16.0) 08/19/16 09:10 BUN 16 mg/dL (7-25) 08/19/16 09:10 Creatinine 2.2 mg/dL (0.6-1.2) H 08/19/16 09:10 Est GFR ( Amer) 32.5 ml/min 08/19/16 09:10 Est GFR (Non-Af Amer) 26.8 ml/min 08/19/16 09:10 BUN/Creatinine Ratio 7.3 08/19/16 09:10 Glucose 81 mg/dL (70-105) 08/19/16 09:10 POC Glucose 49 MG/DL (70 - 105) L 08/19/16 11:44 Hemoglobin A1c % 14.5 % (4.0-6.0) H 08/17/16 06:56 Uric Acid 5.2 mg/dL (2.3-6.6) 08/19/16 09:10 Calcium 8.5 mg/dL (8.6-10.3) L 08/19/16 09:10 Phosphorus 2.9 mg/dL (2.5-5.0) 08/17/16 06:56 Magnesium 1.9 mg/dL (1.9-2.7) 08/19/16 09:10 Total Bilirubin 0.2 mg/dL (0.3-1.0) L 08/19/16 09:10 AST 12 U/L (13-39) L 08/19/16 09:10 ALT 6 U/L (7-52) L 08/19/16 09:10 Alkaline Phosphatase 151 U/L (34-104) H 08/19/16 09:10 Total Protein 6.7 gm/dL (6.0-8.3) 08/19/16 09:10 Albumin 2.3 gm/dL (3.7-5.3) L 08/19/16 09:10 Globulin 4.4 gm/dL 08/19/16 09:10 Albumin/Globulin Ratio 0.5 (1.0-1.8) L 08/19/16 09:10 Urine Source MID[place] 08/19/16 11:10 Urine Color YELLOW 08/19/16 11:10 Urine Clarity SL. CLOUDY (CLEAR) 08/19/16 11:10 Urine pH 6.0 08/19/16 11:10 Ur Specific [place] 1.020 (1.005-1.030) 08/19/16 11:10 Urine Protein >300 mg/dL (NEGATIVE) H 08/19/16 11:10 Urine Glucose (UA) 250 mg/dL (NEGATIVE) H 08/19/16 11:10 Urine Ketones NEGATIVE mg/dL (NEGATIVE) 08/19/16 11:10 Urine Blood MODERATE (NEGATIVE) H 08/19/16 11:10 Urine Nitrate NEGATIVE (NEGATIVE) 08/19/16 11:10 Urine Bilirubin NEGATIVE (NEGATIVE) 08/19/16 11:10 Urine Urobilinogen 0.2 E.U./dL (0.2 - 1.0) 08/19/16 11:10 Ur Leukocyte Esterase NEGATIVE (NEGATIVE) 08/19/16 11:10 Urine RBC 4-7 /hpf (0-5) 08/19/16 11:10 Urine WBC 2-5 /hpf (0-5) 08/19/16 11:10 Ur Epithelial Cells MODERATE /lpf (FEW) 08/19/16 11:10 Urine Bacteria OCCASIONAL /hpf (NONE SEEN) 08/19/16 11:10 Absolute CD4 Count SEE REPORT 08/17/16 13:20 Blood Type O POSITIVE 08/18/16 09:20 Antibody Screen NEGATIVE 08/18/16 09:20 Crossmatch See Detail 08/18/16 09:20 - Physical Exam Vitals and I&O: Vital Signs Temp 99.0 F 08/19/16 11:53 Pulse 103 08/19/16 11:53 Resp 18 08/19/16 11:53 BP 146/80 08/19/16 11:53 Pulse Ox 98 08/19/16 11:53 Intake & Output 08/18/16 08/19/16 08/19/16 18:59 06:59 18:59 Intake Total 1950 100 100 Balance 1950 100 100 Intake: Intake, IV Amount 150 100 100 cefTRIAXone 1 gm In 50 Sodium Chloride 0.9% 50 ml @ 100 mls/hr IV Q24HR [facility] Rx#:[id number] metroNIDAZOLE 500mg/NS 100 100 100 100mL 500 mg In 100 ml @ 100 mls/hr IV Q8H [facility] Rx# :[id number] Oral 1800 Other: # Voids 4 # Bowel Movements 0 Active Medications: Current Medications Clonidine HCl (Catapres) 0.1 mg PO Q8HR PRN PRN Reason: SBP GREATER THAN 160 Stop: 10/16/16 06:25 Last Admin: 08/19/16 08:45 Dose: 0.1 mg Hydralazine HCl (Apresoline) 25 mg PO BID [facility] Stop: 10/17/16 16:59 Last Admin: 08/19/16 08:33 Dose: 25 mg Hydromorphone HCl (Dilaudid) 1 mg IVP Q4HR PRN PRN Reason: Pain (Moderate) Stop: 10/17/16 12:09 Last Admin: 08/19/16 06:00 Dose: 1 mg Sodium Chloride (Nacl 0.9%) 1,000 mls @ 100 mls/hr IV .Q10H [facility] Stop: 10/16/16 06:29 Last Admin: 08/18/16 10:50 Dose: 100 mls/hr Ceftriaxone Sodium 1 gm/ (Sodium Chloride) 50 mls @ 100 mls/hr IV Q24HR [facility] Stop: 10/16/16 10:59 Last Admin: 08/19/16 11:04 Dose: 100 mls/hr Metronidazole (Flagyl) 500 mg in 100 mls @ 100 mls/hr IV Q8H [facility] Stop: 10/16/16 12:59 Last Admin: 08/19/16 12:19 Dose: 100 mls/hr Insulin Aspart (Novolog Insulin Sliding Scale) 0 units SUBQ Q6HR [facility] PRN Reason: Protocol Stop: 10/16/16 11:59 Last Admin: 08/19/16 11:55 Dose: Not Given Insulin Detemir (Levemir Insulin) 45 units SUBQ HS [facility] PRN Reason: Protocol Stop: 10/17/16 20:59 Last Admin: 08/18/16 22:00 Dose: 45 units Ondansetron HCl (Zofran) 4 mg IV Q6H PRN PRN Reason: Nausea / Vomiting Stop: 10/16/16 06:22 Last Admin: 08/19/16 06:54 Dose: 4 mg Patient Own Med- (Tivicay 50mg Tablet) 1 PO DAILY [facility] Stop: 10/17/16 17:59 Last Admin: 08/19/16 08:25 Dose: 1 Patient Own Med- Epzicom (Abacavir 600mg/Lamivudine 300mg) 1 PO DAILY [facility] Stop: 10/17/16 17:59 Last Admin: 08/19/16 08:25 Dose: 1 Sodium Bicarbonate (Sodium Bicarbonate) 650 mg PO BID [facility] PRN Reason: Protocol Stop: 10/17/16 16:59 Last Admin: 08/19/16 08:24 Dose: 650 mg General: Alert, Oriented x3, Cooperative, No acute distress HEENT: Atraumatic Neck: Supple Cardiovascular: Regular rate Lungs: Clear to auscultation Abdomen: Bowel sounds, Soft Extremities: Other (No edema) Neurological: Normal gait Skin: Other (Cellilitis left side of head) Psych/Mental Status: Mental status NL Assessment/Plan - Assessment Assessment: Patient is awake, alert, complaining of headache. Dx: Vomit and diarrhea, Leukocytosis, AKD over CKD, Anemia, HIV. Hg improved after transfusion. WBC increased. Creatinine stable - Plan Plan: Head CT shows no acute illness. Blood is transfused. Case discussed with ID and if headache continue for tomorrow LP will be done. Will continuing monitoring. BS better control
[2016-08-19] MEDS ORDERED: Insulin Detemir 100 units/mL 10mL Vial SUBQ SCH (12:45)
[2016-08-19 13:03] LABS: HEMATOCRIT 25.8 % (35.0-45.0); HEMOGLOBIN 8.7 gm/dL (11.7-15.5); MEAN CELL VOLUME 74.1 fl (81-100); MEAN CORPUSCULAR HEMOGLOBIN 24.9 pg (27.0-31.0); MEAN CORPUSCULAR HGB CONC 33.6 pg (28.0-36.0); MEAN PLATELET VOLUME 6.6 fl; NEUTROPHILE ABSOLUTE 14.8 Th/cmm (1.8-8.0); PLATELET COUNT 598 Th/cmm (150-400); RED BLOOD COUNT 3.49 Mil/cmm (3.80-5.10); RED CELL DISTRIBUTION WIDTH 13.8 % (11.5-20.0); WHITE BLOOD COUNT 18.1 Th/cmm (4.8-10.8)
[2016-08-19 13:20] LABS: BAND NEUTROPHILE 2 % (0-10); EOSINOPHIL 1 % (0-5); NEUTROPHILS 80 % (40-80); TOTAL CELLS COUNTED 100
[2016-08-19 13:21] LABS: ANISOCYTOSIS 1+; MICROCYTOSIS 2+; PLATELET ESTIMATE INCREASED PLATELETS (NORMAL); PLATELET MORPHOLOGY NORMAL (NORMAL); POLYCHROMASIA 1+
--- NOTE | 2016-08-19 13:40 | General Progress Note ---
Subjective - Review of Systems Service Date: 08/19/16 Subjective: slightly better Objective - Results Result Diagrams: 08/19/16 12:35 08/19/16 09:10 Recent Labs: Laboratory Last Values WBC 18.1 Th/cmm (4.8-10.8) H 08/19/16 12:35 RBC 3.49 Mil/cmm (3.80-5.10) L 08/19/16 12:35 Hgb 8.7 gm/dL (11.7-15.5) L 08/19/16 12:35 Hct 25.8 % (35.0-45.0) L 08/19/16 12:35 MCV 74.1 fl (81-100) L 08/19/16 12:35 MCH 24.9 pg (27.0-31.0) L 08/19/16 12:35 MCHC Differential 33.6 pg (28.0-36.0) 08/19/16 12:35 RDW 13.8 % (11.5-20.0) 08/19/16 12:35 Plt Count 598 Th/cmm (150-400) H 08/19/16 12:35 MPV 6.6 fl 08/19/16 12:35 Neutrophils % [employer]ING [employer] 08/19/16 12:35 Band Neutrophils % 2 % (0-10) 08/19/16 12:35 Lymphocytes % [employer]ING [employer] 08/19/16 12:35 Monocytes % [employer]ING [employer] 08/19/16 12:35 Eosinophils % [employer]ING [employer] 08/19/16 12:35 Basophils % [employer]ING [employer] 08/19/16 12:35 Neutrophils (Manual) 80 % (40-80) 08/19/16 12:35 Lymphocytes 13 % (20-50) L 08/19/16 12:35 Monocytes 4 % (2-10) 08/19/16 12:35 Eosinophils 1 % (0-5) 08/19/16 12:35 Platelet Estimate INCREASED PLATELETS (NORMAL) 08/19/16 12:35 Platelet Morphology NORMAL (NORMAL) 08/19/16 12:35 Polychromasia 1+ 08/19/16 12:35 Anisocytosis 1+ 08/19/16 12:35 Microcytosis 2+ 08/19/16 12:35 RBC Morph Micro Appear ABNORMAL (NORMAL) 08/19/16 12:35 PT 8.9 SECONDS (9.5-11.5) L 08/18/16 13:50 INR 0.90 (0.5-1.4) 08/18/16 13:50 Sodium 131 mEq/L (136-145) L 08/19/16 09:10 Potassium 3.8 mEq/L (3.5-5.1) 08/19/16 09:10 Chloride 107 mEq/L (98-107) 08/19/16 09:10 Carbon Dioxide 18.6 mEq/L (21.0-31.0) L 08/19/16 09:10 Anion Gap 9.2 (7.0-16.0) 08/19/16 09:10 BUN 16 mg/dL (7-25) 08/19/16 09:10 Creatinine 2.2 mg/dL (0.6-1.2) H 08/19/16 09:10 Est GFR ( Amer) 32.5 ml/min 08/19/16 09:10 Est GFR (Non-Af Amer) 26.8 ml/min 08/19/16 09:10 BUN/Creatinine Ratio 7.3 08/19/16 09:10 Glucose 81 mg/dL (70-105) 08/19/16 09:10 POC Glucose 149 MG/DL (70 - 105) H 08/19/16 12:34 Hemoglobin A1c % 14.5 % (4.0-6.0) H 08/17/16 06:56 Uric Acid 5.2 mg/dL (2.3-6.6) 08/19/16 09:10 Calcium 8.5 mg/dL (8.6-10.3) L 08/19/16 09:10 Phosphorus 2.9 mg/dL (2.5-5.0) 08/17/16 06:56 Magnesium 1.9 mg/dL (1.9-2.7) 08/19/16 09:10 Total Bilirubin 0.2 mg/dL (0.3-1.0) L 08/19/16 09:10 AST 12 U/L (13-39) L 08/19/16 09:10 ALT 6 U/L (7-52) L 08/19/16 09:10 Alkaline Phosphatase 151 U/L (34-104) H 08/19/16 09:10 Total Protein 6.7 gm/dL (6.0-8.3) 08/19/16 09:10 Albumin 2.3 gm/dL (3.7-5.3) L 08/19/16 09:10 Globulin 4.4 gm/dL 08/19/16 09:10 Albumin/Globulin Ratio 0.5 (1.0-1.8) L 08/19/16 09:10 Urine Source [place] 08/19/16 11:10 Urine Color YELLOW 08/19/16 11:10 Urine Clarity SL. CLOUDY (CLEAR) 08/19/16 11:10 Urine pH 6.0 08/19/16 11:10 Ur Specific [place] 1.020 (1.005-1.030) 08/19/16 11:10 Urine Protein >300 mg/dL (NEGATIVE) H 08/19/16 11:10 Urine Glucose (UA) 250 mg/dL (NEGATIVE) H 08/19/16 11:10 Urine Ketones NEGATIVE mg/dL (NEGATIVE) 08/19/16 11:10 Urine Blood MODERATE (NEGATIVE) H 08/19/16 11:10 Urine Nitrate NEGATIVE (NEGATIVE) 08/19/16 11:10 Urine Bilirubin NEGATIVE (NEGATIVE) 08/19/16 11:10 Urine Urobilinogen 0.2 E.U./dL (0.2 - 1.0) 08/19/16 11:10 Ur Leukocyte Esterase NEGATIVE (NEGATIVE) 08/19/16 11:10 Urine RBC 4-7 /hpf (0-5) 08/19/16 11:10 Urine WBC 2-5 /hpf (0-5) 08/19/16 11:10 Ur Epithelial Cells MODERATE /lpf (FEW) 08/19/16 11:10 Urine Bacteria OCCASIONAL /hpf (NONE SEEN) 08/19/16 11:10 Absolute CD4 Count SEE REPORT 08/17/16 13:20 Blood Type O POSITIVE 08/18/16 09:20 Antibody Screen NEGATIVE 08/18/16 09:20 Crossmatch See Detail 08/18/16 09:20 - Physical Exam Vitals and I&O: Vital Signs Temp 99.0 F 08/19/16 11:53 Pulse 103 08/19/16 11:53 Resp 18 08/19/16 11:53 BP 146/80 08/19/16 11:53 Pulse Ox 98 08/19/16 11:53 Intake & Output 08/18/16 08/19/16 08/19/16 18:59 06:59 18:59 Intake Total 1950 100 100 Balance 1950 100 100 Intake: Intake, IV Amount 150 100 100 cefTRIAXone 1 gm In 50 Sodium Chloride 0.9% 50 ml @ 100 mls/hr IV Q24HR [facility] Rx#:[id number] metroNIDAZOLE 500mg/NS 100 100 100 100mL 500 mg In 100 ml @ 100 mls/hr IV Q8H [facility] Rx# :[id number] Oral 1800 Other: # Voids 4 # Bowel Movements 0 Active Medications: Current Medications Clonidine HCl (Catapres) 0.1 mg PO Q8HR PRN PRN Reason: SBP GREATER THAN 160 Stop: 10/16/16 06:25 Last Admin: 08/19/16 08:45 Dose: 0.1 mg Hydralazine HCl (Apresoline) 25 mg PO BID [facility] Stop: 10/17/16 16:59 Last Admin: 08/19/16 08:33 Dose: 25 mg Hydromorphone HCl (Dilaudid) 1 mg IVP Q4HR PRN PRN Reason: Pain (Moderate) Stop: 10/17/16 12:09 Last Admin: 08/19/16 11:00 Dose: 1 mg Sodium Chloride (Nacl 0.9%) 1,000 mls @ 100 mls/hr IV .Q10H [facility] Stop: 10/16/16 06:29 Last Admin: 08/18/16 10:50 Dose: 100 mls/hr Ceftriaxone Sodium 1 gm/ (Sodium Chloride) 50 mls @ 100 mls/hr IV Q24HR [facility] Stop: 10/16/16 10:59 Last Admin: 08/19/16 11:04 Dose: 100 mls/hr Metronidazole (Flagyl) 500 mg in 100 mls @ 100 mls/hr IV Q8H [facility] Stop: 10/16/16 12:59 Last Admin: 08/19/16 12:19 Dose: 100 mls/hr Insulin Aspart (Novolog Insulin Sliding Scale) 0 units SUBQ Q6HR [facility] PRN Reason: Protocol Stop: 10/16/16 11:59 Last Admin: 08/19/16 11:55 Dose: Not Given Insulin Detemir (Levemir Insulin) 30 units SUBQ HS [facility] PRN Reason: Protocol Stop: 03/12/17 20:59 Ondansetron HCl (Zofran) 4 mg IV Q6H PRN PRN Reason: Nausea / Vomiting Stop: 10/16/16 06:22 Last Admin: 08/19/16 13:17 Dose: 4 mg Patient Own Med- (Tivicay 50mg Tablet) 1 PO DAILY [facility] Stop: 10/17/16 17:59 Last Admin: 08/19/16 08:25 Dose: 1 Patient Own Med- Epzicom (Abacavir 600mg/Lamivudine 300mg) 1 PO DAILY [facility] Stop: 10/17/16 17:59 Last Admin: 08/19/16 08:25 Dose: 1 Sodium Bicarbonate (Sodium Bicarbonate) 650 mg PO BID ESTEE PRN Reason: Protocol Stop: 10/17/16 16:59 Last Admin: 08/19/16 08:24 Dose: 650 mg General: Alert, Oriented x3, Cooperative, No acute distress HEENT: Atraumatic, PERRLA, EOMI, Mucous membr. moist/pink Neck: Supple, +2 carotid pulse wo bruit Cardiovascular: Regular rate, Normal S1, Normal S2 Lungs: Clear to auscultation Abdomen: Bowel sounds, Soft Extremities: no Edema Neurological: Normal gait, Normal speech, Sensation intact Skin: no Rash Assessment/Plan - Assessment Assessment: donna on ckd acute gatroenteritis type 1 dm ooc ess htn anemia of cd severe malnutiriton HIV, no ARC Hx right foot dellulitis S/p amp right 2nd digit NG met acid
--- NOTE | 2016-08-19 15:33 | Diagnostic Imaging Report ---
Renal ultrasound HISTORY: Abnormal renal function test The right kidney is normal in size (10.4 x 4.7 x 6.2 cm). No focal lesions. No hydronephrosis. The left kidney is normal in size (10.8 x 6.2 x 5.8 cm). No focal lesions. No hydronephrosis. No abnormality seen in the region of the urinary bladder. Incidentally noted is an approximate 2.8 cm echogenic density in the right lobe of the liver. This may be associated with a hemangioma. A dedicated [address] scan of the liver is advised for additional characterization. IMPRESSION: 1. Negative examination of the kidneys 2. 2.8 similar echogenic density within the right lobe of the liver. This may be associated with a hemangioma. However, a dedicated [address] scan of the liver is advised for further characterization and assessment.
[2016-08-20] MEDS: Sodium Chloride 0.9% 1,000 ML IV SCH ×3 (01:34→14:47)
[2016-08-20] MEDS: HYDROmorphone 1 mg/mL 1mL Syr IVP PRN ×4 (01:35→20:29)
[2016-08-20] MEDS ORDERED: Dextrose 50% 50 mL Abboject IVP ONE (03:43)
[2016-08-20] MEDS: Dextrose 50% 50 mL Abboject IVP ONE (03:44)
[2016-08-20] MEDS: metroNIDAZOLE 500mg/NS 100mL 500 MG/100 ML BAG IV SCH ×3 (05:04→20:43)
[2016-08-20] MEDS: INSULIN ASPART SLIDING SCALE 100 UNITS/ML UNIT SUBQ SCH ×3 (05:09→18:14)
[2016-08-20 07:39] LABS: ANION GAP 9.6 (7.0-16.0); BUN/CREATININE RATIO 5.7; CARBON DIOXIDE 20.1 mEq/L (21.0-31.0); CREATININE - SERUM 2.3 mg/dL (0.6-1.2); POTASSIUM SERUM 3.7 mEq/L (3.5-5.1)
[2016-08-20 08:03] LABS: HEMATOCRIT 27.2 % (35.0-45.0); MEAN CELL VOLUME 74.2 fl (81-100); MEAN CORPUSCULAR HEMOGLOBIN 24.5 pg (27.0-31.0); MEAN PLATELET VOLUME 7.1 fl; PLATELET COUNT 659 Th/cmm (150-400); RED BLOOD COUNT 3.66 Mil/cmm (3.80-5.10); WHITE BLOOD COUNT 14.8 Th/cmm (4.8-10.8)
[2016-08-20] MEDS: TIVICAY 50 MG PO SCH (09:36)
[2016-08-20 09:40] LABS: NEUTROPHILS 76 % (40-80); TOTAL CELLS COUNTED 100
[2016-08-20 09:41] LABS: ANISOCYTOSIS 1+; EOSINOPHIL 1 % (0-5); MICROCYTOSIS 2+; PLATELET ESTIMATE INCREASED PLATELETS (NORMAL); PLATELET MORPHOLOGY NORMAL (NORMAL)
[2016-08-20] MEDS: cefTRIAXone 1 GM in 0.9% NS 50 ML IV SCH (10:06)
--- NOTE | 2016-08-20 10:59 | Diagnostic Imaging Report ---
CT abdomen and pelvis without intravenous contrast Indication: Elevated white blood cell count Comparison: None, Technique: Axial images were obtained from the lung bases to the bilateral proximal femurs without IV contrast. Oral contrast was administered. Coronal reconstructions were made. total DLP: 541, CTDI9.6 FINDINGS: Hypoventilatory atelectatic changes of the lung bases are noted with left basal consolidative change. Assessment of the solid organs is limited due to lack of IV contrast. There is a 2.7 cm lesion within the inferior right lobe of the liver. Additional 1.3 cm lesion of the right lobe is also noted. Faint calcifications of the splenic hilum are noted likely vascular in etiology. There is a 3 mm calcification in the head of the pancreas which may be due to old inflammatory process. No focal adrenal lesions. Nonspecific bilateral perinephric inflammatory changes are noted. No hydronephrosis. Markedly distended urinary bladder is noted. Mildly dilated gallbladder is noted. No radiopaque stones. Moderate stool is seen. No evidence of small bowel obstruction. Appendix is not visualized. Small amount of free fluid is seen in the pelvis. Small fat-containing ventral hernia is noted. No free air. Anasarca is noted. The osseous structures demonstrate no acute abnormalities. IMPRESSION: Moderate amount of stool throughout the colon. No evidence of small bowel obstruction Small amount of free fluid within the pelvis Indeterminate 2.7 cm lesion of the inferior right lobe of the liver. Additional indeterminate 1.5 cm lesion of the right lobe of the liver is also noted. Further assessment with CT dedicated liver mass protocol is recommended as findings may represent benign or malignant etiologies. Small fat-containing ventral hernia Mildly distended gallbladder. No evidence of radiopaque stones. Consider follow-up ultrasound if indicated Distended urinary bladder. Anasarca. Nonspecific bilateral perinephric inflammatory changes. No hydronephrosis. Left basal infiltrate.
--- NOTE | 2016-08-20 13:50 | General Progress Note ---
Subjective - Review of Systems Service Date: 08/20/16 Subjective: sleeping, comfortable Objective - Results Result Diagrams: 08/20/16 06:05 08/20/16 06:05 Recent Labs: Laboratory Last Values WBC 14.8 Th/cmm (4.8-10.8) H 08/20/16 06:05 RBC 3.66 Mil/cmm (3.80-5.10) L 08/20/16 06:05 Hgb 9.0 gm/dL (11.7-15.5) L 08/20/16 06:05 Hct 27.2 % (35.0-45.0) L 08/20/16 06:05 MCV 74.2 fl (81-100) L 08/20/16 06:05 MCH 24.5 pg (27.0-31.0) L 08/20/16 06:05 MCHC Differential 33.0 pg (28.0-36.0) 08/20/16 06:05 RDW 14.0 % (11.5-20.0) 08/20/16 06:05 Plt Count 659 Th/cmm (150-400) H 08/20/16 06:05 MPV 7.1 fl 08/20/16 06:05 Neutrophils % MARKETING TECHNOLOGY COORDINATOR 08/19/16 12:35 Band Neutrophils % 2 % (0-10) 08/19/16 12:35 Lymphocytes % MARKETING TECHNOLOGY COORDINATOR 08/19/16 12:35 Monocytes % MARKETING TECHNOLOGY COORDINATOR 08/19/16 12:35 Eosinophils % MARKETING TECHNOLOGY COORDINATOR 08/19/16 12:35 Basophils % MARKETING TECHNOLOGY COORDINATOR 08/19/16 12:35 Neutrophils (Manual) 76 % (40-80) 08/20/16 06:05 Lymphocytes 21 % (20-50) 08/20/16 06:05 Monocytes 2 % (2-10) 08/20/16 06:05 Eosinophils 1 % (0-5) 08/20/16 06:05 Platelet Estimate INCREASED PLATELETS (NORMAL) 08/20/16 06:05 Platelet Morphology NORMAL (NORMAL) 08/20/16 06:05 Polychromasia 1+ 08/19/16 12:35 Anisocytosis 1+ 08/20/16 06:05 Microcytosis 2+ 08/20/16 06:05 RBC Morph Micro Appear ABNORMAL (NORMAL) 08/20/16 06:05 Eos Smear Source URINE 08/19/16 11:10 Eos Smear Total Cells NONE SEEN (NONE SEEN) 08/19/16 11:10 PT 8.9 SECONDS (9.5-11.5) L 08/18/16 13:50 INR 0.90 (0.5-1.4) 08/18/16 13:50 Sodium 135 mEq/L (136-145) L 08/20/16 06:05 Potassium 3.7 mEq/L (3.5-5.1) 08/20/16 06:05 Chloride 109 mEq/L (98-107) H 08/20/16 06:05 Carbon Dioxide 20.1 mEq/L (21.0-31.0) L 08/20/16 06:05 Anion Gap 9.6 (7.0-16.0) 08/20/16 06:05 BUN 13 mg/dL (7-25) 08/20/16 06:05 Creatinine 2.3 mg/dL (0.6-1.2) H 08/20/16 06:05 Est GFR ( Amer) 30.9 ml/min 08/20/16 06:05 Est GFR (Non-Af Amer) 25.5 ml/min 08/20/16 06:05 BUN/Creatinine Ratio 5.7 08/20/16 06:05 Glucose 53 mg/dL (70-105) L 08/20/16 06:05 POC Glucose 81 MG/DL (70 - 105) 08/20/16 12:07 Hemoglobin A1c % 14.5 % (4.0-6.0) H 08/17/16 06:56 Uric Acid 5.2 mg/dL (2.3-6.6) 08/19/16 09:10 Calcium 9.0 mg/dL (8.6-10.3) 08/20/16 06:05 Phosphorus 2.9 mg/dL (2.5-5.0) 08/17/16 06:56 Magnesium 1.9 mg/dL (1.9-2.7) 08/19/16 09:10 Total Bilirubin 0.2 mg/dL (0.3-1.0) L 08/19/16 09:10 AST 12 U/L (13-39) L 08/19/16 09:10 ALT 6 U/L (7-52) L 08/19/16 09:10 Alkaline Phosphatase 151 U/L (34-104) H 08/19/16 09:10 Total Protein 6.7 gm/dL (6.0-8.3) 08/19/16 09:10 Albumin 2.3 gm/dL (3.7-5.3) L 08/19/16 09:10 Globulin 4.4 gm/dL 08/19/16 09:10 Albumin/Globulin Ratio 0.5 (1.0-1.8) L 08/19/16 09:10 Urine Source MIDSTREAM 08/19/16 11:10 Urine Color YELLOW 08/19/16 11:10 Urine Clarity SL. CLOUDY (CLEAR) 08/19/16 11:10 Urine pH 6.0 08/19/16 11:10 Ur Specific [place] 1.020 (1.005-1.030) 08/19/16 11:10 Urine Protein >300 mg/dL (NEGATIVE) H 08/19/16 11:10 Urine Glucose (UA) 250 mg/dL (NEGATIVE) H 08/19/16 11:10 Urine Ketones NEGATIVE mg/dL (NEGATIVE) 08/19/16 11:10 Urine Blood MODERATE (NEGATIVE) H 08/19/16 11:10 Urine Nitrate NEGATIVE (NEGATIVE) 08/19/16 11:10 Urine Bilirubin NEGATIVE (NEGATIVE) 08/19/16 11:10 Urine Urobilinogen 0.2 E.U./dL (0.2 - 1.0) 08/19/16 11:10 Ur Leukocyte Esterase NEGATIVE (NEGATIVE) 08/19/16 11:10 Urine RBC 4-7 /hpf (0-5) 08/19/16 11:10 Urine WBC 2-5 /hpf (0-5) 08/19/16 11:10 Ur Epithelial Cells MODERATE /lpf (FEW) 08/19/16 11:10 Urine Bacteria OCCASIONAL /hpf (NONE SEEN) 08/19/16 11:10 Urine Creatinine 66.0 mg/dl (28.0-217.0) 08/19/16 11:10 Absolute CD4 Count SEE REPORT 08/17/16 13:20 Blood Type O POSITIVE 08/18/16 09:20 Antibody Screen NEGATIVE 08/18/16 09:20 Crossmatch See Detail 08/18/16 09:20 - Physical Exam Vitals and I&O: Vital Signs Temp 97.8 F 08/20/16 08:00 Pulse 97 08/20/16 09:35 Resp 18 08/20/16 08:00 BP 171/84 08/20/16 09:35 Pulse Ox 95 08/20/16 08:00 Intake & Output 08/19/16 08/20/16 08/20/16 18:59 06:59 18:59 Intake Total 250 555 Balance 250 555 Intake: Intake, IV Amount 250 555 Sodium Chloride 0.9% 1, 355 000 ml @ 100 mls/hr IV . Q10H [facility] Rx#:[id number] cefTRIAXone 1 gm In 50 Sodium Chloride 0.9% 50 ml @ 100 mls/hr IV Q24HR [facility] Rx#:[id number] metroNIDAZOLE 500mg/NS 200 200 100mL 500 mg In 100 ml @ 100 mls/hr IV Q8H [facility] Rx# :[id number] Other: # Voids 2 Active Medications: Current Medications Clonidine HCl (Catapres) 0.1 mg PO Q8HR PRN PRN Reason: SBP GREATER THAN 160 Stop: 10/16/16 06:25 Last Admin: 08/19/16 08:45 Dose: 0.1 mg Hydralazine HCl (Apresoline) 25 mg PO TID [facility] Stop: 10/19/16 08:59 Last Admin: 08/20/16 09:35 Dose: 25 mg Hydromorphone HCl (Dilaudid) 1 mg IVP Q4HR PRN PRN Reason: Pain (Moderate) Stop: 10/17/16 12:09 Last Admin: 08/20/16 09:37 Dose: 1 mg Sodium Chloride (Nacl 0.9%) 1,000 mls @ 100 mls/hr IV .Q10H [facility] Stop: 10/16/16 06:29 Last Admin: 08/20/16 05:07 Dose: 100 mls/hr Ceftriaxone Sodium 1 gm/ (Sodium Chloride) 50 mls @ 100 mls/hr IV Q24HR [facility] Stop: 10/16/16 10:59 Last Admin: 08/20/16 10:06 Dose: 100 mls/hr Metronidazole (Flagyl) 500 mg in 100 mls @ 100 mls/hr IV Q8H [facility] Stop: 10/16/16 12:59 Last Admin: 08/20/16 12:08 Dose: 100 mls/hr Insulin Aspart (Novolog Insulin Sliding Scale) 0 units SUBQ Q6HR [facility] PRN Reason: Protocol Stop: 10/16/16 11:59 Last Admin: 08/20/16 12:09 Dose: Not Given Insulin Detemir (Levemir Insulin) 30 units SUBQ HS [facility] PRN Reason: Protocol Stop: 10/17/16 20:59 Last Admin: 08/19/16 20:53 Dose: 30 units Ondansetron HCl (Zofran) 4 mg IV Q6H PRN PRN Reason: Nausea / Vomiting Stop: 10/16/16 06:22 Last Admin: 08/19/16 13:17 Dose: 4 mg Patient Own Med- (Tivicay 50mg Tablet) 1 PO DAILY [facility] Stop: 10/17/16 17:59 Last Admin: 08/20/16 09:36 Dose: 1 Patient Own Med- Epzicom (Abacavir 600mg/Lamivudine 300mg) 1 PO DAILY [facility] Stop: 10/17/16 17:59 Last Admin: 08/20/16 09:36 Dose: 1 Sodium Bicarbonate (Sodium Bicarbonate) 650 mg PO BID [facility] PRN Reason: Protocol Stop: 10/17/16 16:59 Last Admin: 08/20/16 09:35 Dose: 650 mg General: No acute distress HEENT: Atraumatic, Mucous membr. moist/pink Neck: Supple Cardiovascular: Regular rate, Normal S1, Normal S2 Lungs: Clear to auscultation Abdomen: Bowel sounds, Soft, no Tender Extremities: no Edema Neurological: Normal speech, Normal tone, Sensation intact Skin: no Rash Psych/Mental Status: Mood NL Assessment/Plan - Assessment Assessment: donna on ckd acute gatroenteritis type 1 dm ooc ess htn anemia of cd severe malnutiriton HIV, no ARC Hx right foot dellulitis S/p amp right 2nd digit NG met acid - Plan Plan: continue ivf creatinine stable @ 2.3, likely baseline encourage po intake f/u electrolytes
[2016-08-20] MEDS: D5-0.45NS 1,000 ML IV SCH (19:06)
[2016-08-20] MEDS: Insulin Detemir 100 units/mL 10mL Vial SUBQ SCH (20:38)
--- NOTE | 2016-08-20 23:54 | Infectious Disease Prog Note ---
Infectious Disease Subjective - Review of Systems Service Date: 08/20/16 Subjective: no fever. Infectious Disease Objective - Results Result Diagrams: 08/20/16 06:05 08/20/16 06:05 Recent Labs: Laboratory Last Values WBC 14.8 Th/cmm (4.8-10.8) H 08/20/16 06:05 RBC 3.66 Mil/cmm (3.80-5.10) L 08/20/16 06:05 Hgb 9.0 gm/dL (11.7-15.5) L 08/20/16 06:05 Hct 27.2 % (35.0-45.0) L 08/20/16 06:05 MCV 74.2 fl (81-100) L 08/20/16 06:05 MCH 24.5 pg (27.0-31.0) L 08/20/16 06:05 MCHC Differential 33.0 pg (28.0-36.0) 08/20/16 06:05 RDW 14.0 % (11.5-20.0) 08/20/16 06:05 Plt Count 659 Th/cmm (150-400) H 08/20/16 06:05 MPV 7.1 fl 08/20/16 06:05 Neutrophils % DOG HANDLER OR TRAINER 08/19/16 12:35 Band Neutrophils % 2 % (0-10) 08/19/16 12:35 Lymphocytes % DOG HANDLER OR TRAINER 08/19/16 12:35 Monocytes % DOG HANDLER OR TRAINER 08/19/16 12:35 Eosinophils % DOG HANDLER OR TRAINER 08/19/16 12:35 Basophils % DOG HANDLER OR TRAINER 08/19/16 12:35 Neutrophils (Manual) 76 % (40-80) 08/20/16 06:05 Lymphocytes 21 % (20-50) 08/20/16 06:05 Monocytes 2 % (2-10) 08/20/16 06:05 Eosinophils 1 % (0-5) 08/20/16 06:05 Platelet Estimate INCREASED PLATELETS (NORMAL) 08/20/16 06:05 Platelet Morphology NORMAL (NORMAL) 08/20/16 06:05 Polychromasia 1+ 08/19/16 12:35 Anisocytosis 1+ 08/20/16 06:05 Microcytosis 2+ 08/20/16 06:05 RBC Morph Micro Appear ABNORMAL (NORMAL) 08/20/16 06:05 Eos Smear Source URINE 08/19/16 11:10 Eos Smear Total Cells NONE SEEN (NONE SEEN) 08/19/16 11:10 PT 8.9 SECONDS (9.5-11.5) L 08/18/16 13:50 INR 0.90 (0.5-1.4) 08/18/16 13:50 Sodium 135 mEq/L (136-145) L 08/20/16 06:05 Potassium 3.7 mEq/L (3.5-5.1) 08/20/16 06:05 Chloride 109 mEq/L (98-107) H 08/20/16 06:05 Carbon Dioxide 20.1 mEq/L (21.0-31.0) L 08/20/16 06:05 Anion Gap 9.6 (7.0-16.0) 08/20/16 06:05 BUN 13 mg/dL (7-25) 08/20/16 06:05 Creatinine 2.3 mg/dL (0.6-1.2) H 08/20/16 06:05 Est GFR ( Amer) 30.9 ml/min 08/20/16 06:05 Est GFR (Non-Af Amer) 25.5 ml/min 08/20/16 06:05 BUN/Creatinine Ratio 5.7 08/20/16 06:05 Glucose 53 mg/dL (70-105) L 08/20/16 06:05 POC Glucose 161 MG/DL (70 - 105) H 08/20/16 18:12 Hemoglobin A1c % 14.5 % (4.0-6.0) H 08/17/16 06:56 Uric Acid 5.2 mg/dL (2.3-6.6) 08/19/16 09:10 Calcium 9.0 mg/dL (8.6-10.3) 08/20/16 06:05 Phosphorus 2.9 mg/dL (2.5-5.0) 08/17/16 06:56 Magnesium 1.9 mg/dL (1.9-2.7) 08/19/16 09:10 Total Bilirubin 0.2 mg/dL (0.3-1.0) L 08/19/16 09:10 AST 12 U/L (13-39) L 08/19/16 09:10 ALT 6 U/L (7-52) L 08/19/16 09:10 Alkaline Phosphatase 151 U/L (34-104) H 08/19/16 09:10 Total Protein 6.7 gm/dL (6.0-8.3) 08/19/16 09:10 Albumin 2.3 gm/dL (3.7-5.3) L 08/19/16 09:10 Globulin 4.4 gm/dL 08/19/16 09:10 Albumin/Globulin Ratio 0.5 (1.0-1.8) L 08/19/16 09:10 Urine Source MIDSTREAM 08/19/16 11:10 Urine Color YELLOW 08/19/16 11:10 Urine Clarity SL. CLOUDY (CLEAR) 08/19/16 11:10 Urine pH 6.0 08/19/16 11:10 Ur Specific [place] 1.020 (1.005-1.030) 08/19/16 11:10 Urine Protein >300 mg/dL (NEGATIVE) H 08/19/16 11:10 Urine Glucose (UA) 250 mg/dL (NEGATIVE) H 08/19/16 11:10 Urine Ketones NEGATIVE mg/dL (NEGATIVE) 08/19/16 11:10 Urine Blood MODERATE (NEGATIVE) H 08/19/16 11:10 Urine Nitrate NEGATIVE (NEGATIVE) 08/19/16 11:10 Urine Bilirubin NEGATIVE (NEGATIVE) 08/19/16 11:10 Urine Urobilinogen 0.2 E.U./dL (0.2 - 1.0) 08/19/16 11:10 Ur Leukocyte Esterase NEGATIVE (NEGATIVE) 08/19/16 11:10 Urine RBC 4-7 /hpf (0-5) 08/19/16 11:10 Urine WBC 2-5 /hpf (0-5) 08/19/16 11:10 Ur Epithelial Cells MODERATE /lpf (FEW) 08/19/16 11:10 Urine Bacteria OCCASIONAL /hpf (NONE SEEN) 08/19/16 11:10 Urine Creatinine 66.0 mg/dl (28.0-217.0) 08/19/16 11:10 Absolute CD4 Count SEE REPORT 08/17/16 13:20 Blood Type O POSITIVE 08/18/16 09:20 Antibody Screen NEGATIVE 08/18/16 09:20 Crossmatch See Detail 08/18/16 09:20 - Physical Exam Vitals and I&O: Vital Signs Temp 98.1 F 08/20/16 20:08 Pulse 105 08/20/16 20:35 Resp 18 08/20/16 20:08 BP 156/90 08/20/16 20:35 Pulse Ox 95 08/20/16 20:08 Intake & Output 08/20/16 08/20/16 08/21/16 06:59 18:59 06:59 Intake Total 555 1066.667 Balance 555 1066.667 Intake: Intake, IV Amount 555 1066.667 Sodium Chloride 0.9% 1, 355 966.667 000 ml @ 100 mls/hr IV . Q10H [facility]PL[facility] BY [facility] Rx#:[id number] metroNIDAZOLE 500mg/NS 200 100 100mL 500 mg In 100 ml @ 100 mls/hr IV Q8H [facility]PLAC[facility] BY [facility] Rx# :[id number] Active Medications: Current Medications Clonidine HCl (Catapres) 0.1 mg PO Q8HR PRN PRN Reason: SBP GREATER THAN 160 Stop: 10/16/16 06:25 Last Admin: 08/19/16 08:45 Dose: 0.1 mg Hydralazine HCl (Apresoline) 25 mg PO TID [facility] Stop: 10/19/16 08:59 Last Admin: 08/20/16 20:35 Dose: 25 mg Hydromorphone HCl (Dilaudid) 1 mg IVP Q4HR PRN PRN Reason: Pain (Moderate) Stop: 10/17/16 12:09 Last Admin: 08/20/16 20:29 Dose: 1 mg Ceftriaxone Sodium 1 gm/ (Sodium Chloride) 50 mls @ 100 mls/hr IV Q24HR REPL[facility]ED BY [facility] Stop: 10/16/16 10:59 Last Admin: 08/20/16 10:06 Dose: 100 mls/hr Metronidazole (Flagyl) 500 mg in 100 mls @ 100 mls/hr IV Q8H [facility] Stop: 10/16/16 12:59 Last Admin: 08/20/16 20:43 Dose: 100 mls/hr Dextrose/Sodium Chloride (D5-0.45ns) 1,000 mls @ 100 mls/hr IV .Q10H [facility]PL[facility]ED BY [facility] Stop: 10/19/16 18:14 Last Admin: 08/20/16 19:06 Dose: 100 mls/hr Insulin Aspart (Novolog Insulin Sliding Scale) 0 units SUBQ Q6HR [facility] PRN Reason: Protocol Stop: 10/16/16 11:59 Last Admin: 08/20/16 18:14 Dose: 2 units Insulin Detemir (Levemir Insulin) 20 units SUBQ HS [facility] PRN Reason: Protocol Stop: 10/19/16 20:59 Last Admin: 08/20/16 20:38 Dose: 20 units Ondansetron HCl (Zofran) 4 mg IV Q6H PRN PRN Reason: Nausea / Vomiting Stop: 10/16/16 06:22 Last Admin: 08/20/16 14:57 Dose: 4 mg Patient Own Med- (Tivicay 50mg Tablet) 1 PO DAILY REPLACED BY [facility] Stop: 10/17/16 17:59 Last Admin: 08/20/16 09:36 Dose: 1 Patient Own Med- Epzicom (Abacavir 600mg/Lamivudine 300mg) 1 PO DAILY REPLACED BY [facility] Stop: 10/17/16 17:59 Last Admin: 08/20/16 09:36 Dose: 1 Sodium Bicarbonate (Sodium Bicarbonate) 650 mg PO BID [facility] PRN Reason: Protocol Stop: 10/17/16 16:59 Last Admin: 08/20/16 17:06 Dose: 650 mg General: no acute distress, well developed, well nourished HEENT: atraumatic, normocephalic, PERRLA, EOMI, moist mucous membrane Neck: supple, no thyromegaly Cardiovascular: S1S2, regular Lungs: clear to auscultation bilaterally, clear to percussion Abdomen: soft, no tender, no distended Extremities: no cyanosis, no clubbing, no edema Neurological: awake, alert, oriented Skin: intact Infectious Disease Assmt/Plan - Assessment Assessment: Impression: 1. Leukocytosis. Worse, clinically, patient feels better.? reactive. 2. DM 3. HIV. CD4 435 (15%). 4. Gastroenteritis better. 5. HTN. 6. CKD 3. 7. Pyelonephritis. - Plan Plan: Continue ART. Continue rocephin and dc flagyl.
[2016-08-21] MEDS: HYDROmorphone 1 mg/mL 1mL Syr IVP PRN ×6 (00:03→20:48)
[2016-08-21] MEDS: INSULIN ASPART SLIDING SCALE 100 UNITS/ML UNIT SUBQ SCH ×4 (00:05→17:44)
[2016-08-21 06:59] LABS: HEMATOCRIT 26.9 % (35.0-45.0); HEMOGLOBIN 8.8 gm/dL (11.7-15.5); MEAN CELL VOLUME 74.1 fl (81-100); MEAN CORPUSCULAR HEMOGLOBIN 24.3 pg (27.0-31.0); MEAN CORPUSCULAR HGB CONC 32.7 pg (28.0-36.0); MEAN PLATELET VOLUME 6.9 fl; PLATELET COUNT 686 Th/cmm (150-400); RED BLOOD COUNT 3.63 Mil/cmm (3.80-5.10); RED CELL DISTRIBUTION WIDTH 14.1 % (11.5-20.0)
[2016-08-21 07:21] LABS: WHITE BLOOD COUNT 9.6 Th/cmm (4.8-10.8)
[2016-08-21 07:37] LABS: ALB/GLOB RATIO 0.5 (1.0-1.8); ANION GAP 7.4 (7.0-16.0); BILIRUBIN,TOTAL 0.1 mg/dL (0.3-1.0); BUN/CREATININE RATIO 7.2; CARBON DIOXIDE 19.7 mEq/L (21.0-31.0); CREATININE - SERUM 1.8 mg/dL (0.6-1.2); POTASSIUM SERUM 4.1 mEq/L (3.5-5.1)
[2016-08-21] MEDS: D5-0.45NS 1,000 ML IV SCH ×2 (09:10→23:36)
[2016-08-21] MEDS: TIVICAY 50 MG PO SCH (09:10)
[2016-08-21 09:54] LABS: ANISOCYTOSIS 1+; BAND NEUTROPHILE 4 % (0-10); BASOPHIL 1 % (0-3); EOSINOPHIL 3 % (0-5); MICROCYTOSIS 2+; NEUTROPHILS 57 % (40-80); PLATELET ESTIMATE INCREASED PLATELETS (NORMAL); PLATELET MORPHOLOGY NORMAL (NORMAL); POLYCHROMASIA 1+; TOTAL CELLS COUNTED 100
--- NOTE | 2016-08-21 10:22 | General Progress Note ---
Subjective - Review of Systems Service Date: 08/21/16 Subjective: sleeping, comfortable Objective - Results Result Diagrams: 08/21/16 06:42 08/21/16 06:42 Recent Labs: Laboratory Last Values WBC 9.6 Th/cmm (4.8-10.8) D 08/21/16 06:42 RBC 3.63 Mil/cmm (3.80-5.10) L 08/21/16 06:42 Hgb 8.8 gm/dL (11.7-15.5) L 08/21/16 06:42 Hct 26.9 % (35.0-45.0) L 08/21/16 06:42 MCV 74.1 fl (81-100) L 08/21/16 06:42 MCH 24.3 pg (27.0-31.0) L 08/21/16 06:42 MCHC Differential 32.7 pg (28.0-36.0) 08/21/16 06:42 RDW 14.1 % (11.5-20.0) 08/21/16 06:42 Plt Count 686 Th/cmm (150-400) H 08/21/16 06:42 MPV 6.9 fl 08/21/16 06:42 Neutrophils % CAN LABELER 08/19/16 12:35 Band Neutrophils % 4 % (0-10) 08/21/16 06:42 Lymphocytes % CAN LABELER 08/19/16 12:35 Monocytes % CAN LABELER 08/19/16 12:35 Eosinophils % CAN LABELER 08/19/16 12:35 Basophils % CAN LABELER 08/19/16 12:35 Neutrophils (Manual) 57 % (40-80) 08/21/16 06:42 Lymphocytes 25 % (20-50) 08/21/16 06:42 Monocytes 10 % (2-10) 08/21/16 06:42 Eosinophils 3 % (0-5) 08/21/16 06:42 Basophils 1 % (0-3) 08/21/16 06:42 Platelet Estimate INCREASED PLATELETS (NORMAL) 08/21/16 06:42 Platelet Morphology NORMAL (NORMAL) 08/21/16 06:42 Polychromasia 1+ 08/21/16 06:42 Anisocytosis 1+ 08/21/16 06:42 Microcytosis 2+ 08/21/16 06:42 RBC Morph Micro Appear ABNORMAL (NORMAL) 08/21/16 06:42 Eos Smear Source URINE 08/19/16 11:10 Eos Smear Total Cells NONE SEEN (NONE SEEN) 08/19/16 11:10 PT 8.9 SECONDS (9.5-11.5) L 08/18/16 13:50 INR 0.90 (0.5-1.4) 08/18/16 13:50 Sodium 135 mEq/L (136-145) L 08/21/16 06:42 Potassium 4.1 mEq/L (3.5-5.1) 08/21/16 06:42 Chloride 112 mEq/L (98-107) H 08/21/16 06:42 Carbon Dioxide 19.7 mEq/L (21.0-31.0) L 08/21/16 06:42 Anion Gap 7.4 (7.0-16.0) 08/21/16 06:42 BUN 13 mg/dL (7-25) 08/21/16 06:42 Creatinine 1.8 mg/dL (0.6-1.2) H 08/21/16 06:42 Est GFR ( Amer) 40.9 ml/min 08/21/16 06:42 Est GFR (Non-Af Amer) 33.8 ml/min 08/21/16 06:42 BUN/Creatinine Ratio 7.2 08/21/16 06:42 Glucose 50 mg/dL (70-105) L 08/21/16 06:42 POC Glucose 88 MG/DL (70 - 105) 08/21/16 07:28 Hemoglobin A1c % 14.5 % (4.0-6.0) H 08/17/16 06:56 Uric Acid 5.2 mg/dL (2.3-6.6) 08/19/16 09:10 Calcium 9.0 mg/dL (8.6-10.3) 08/21/16 06:42 Phosphorus 2.9 mg/dL (2.5-5.0) 08/17/16 06:56 Magnesium 1.9 mg/dL (1.9-2.7) 08/21/16 06:42 Total Bilirubin 0.1 mg/dL (0.3-1.0) L 08/21/16 06:42 AST 20 U/L (13-39) 08/21/16 06:42 ALT 12 U/L (7-52) 08/21/16 06:42 Alkaline Phosphatase 124 U/L (34-104) H 08/21/16 06:42 Total Protein 6.6 gm/dL (6.0-8.3) 08/21/16 06:42 Albumin 2.3 gm/dL (3.7-5.3) L 08/21/16 06:42 Globulin 4.3 gm/dL 08/21/16 06:42 Albumin/Globulin Ratio 0.5 (1.0-1.8) L 08/21/16 06:42 Urine Source MIDSTREAM 08/19/16 11:10 Urine Color YELLOW 08/19/16 11:10 Urine Clarity SL. CLOUDY (CLEAR) 08/19/16 11:10 Urine pH 6.0 08/19/16 11:10 Ur Specific [place] 1.020 (1.005-1.030) 08/19/16 11:10 Urine Protein >300 mg/dL (NEGATIVE) H 08/19/16 11:10 Urine Glucose (UA) 250 mg/dL (NEGATIVE) H 08/19/16 11:10 Urine Ketones NEGATIVE mg/dL (NEGATIVE) 08/19/16 11:10 Urine Blood MODERATE (NEGATIVE) H 08/19/16 11:10 Urine Nitrate NEGATIVE (NEGATIVE) 08/19/16 11:10 Urine Bilirubin NEGATIVE (NEGATIVE) 08/19/16 11:10 Urine Urobilinogen 0.2 E.U./dL (0.2 - 1.0) 08/19/16 11:10 Ur Leukocyte Esterase NEGATIVE (NEGATIVE) 08/19/16 11:10 Urine RBC 4-7 /hpf (0-5) 08/19/16 11:10 Urine WBC 2-5 /hpf (0-5) 08/19/16 11:10 Ur Epithelial Cells MODERATE /lpf (FEW) 08/19/16 11:10 Urine Bacteria OCCASIONAL /hpf (NONE SEEN) 08/19/16 11:10 Urine Creatinine 66.0 mg/dl (28.0-217.0) 08/19/16 11:10 Absolute CD4 Count SEE REPORT 08/17/16 13:20 Blood Type O POSITIVE 08/18/16 09:20 Antibody Screen NEGATIVE 08/18/16 09:20 Crossmatch See Detail 08/18/16 09:20 - Physical Exam Vitals and I&O: Vital Signs Temp 97.1 F 08/21/16 04:32 Pulse 105 08/21/16 09:09 Resp 22 08/21/16 04:32 BP 154/57 08/21/16 09:09 Pulse Ox 100 08/21/16 04:32 Intake & Output 08/20/16 08/21/16 08/21/16 18:59 06:59 18:59 Intake Total 8501.046 2135 Balance 3013.693 1998 Intake: Intake, IV Amount 8441.745 1707 D5-0.45NS 1,000 ml @ 100 1000 mls/hr IV .Q10H [facility] Rx#: [id number] Sodium Chloride 0.9% 1, 966.667 000 ml @ 100 mls/hr IV . Q10H [facility] Rx#:[id number] metroNIDAZOLE 500mg/NS 100 100mL 500 mg In 100 ml @ 100 mls/hr IV Q8H [facility] Rx# :[id number] Oral 350 Other: # Voids 3 Active Medications: Current Medications Clonidine HCl (Catapres) 0.1 mg PO Q8HR PRN PRN Reason: SBP GREATER THAN 160 Stop: 10/16/16 06:25 Last Admin: 08/19/16 08:45 Dose: 0.1 mg Hydralazine HCl (Apresoline) 25 mg PO TID [facility] Stop: 10/19/16 08:59 Last Admin: 08/21/16 09:09 Dose: 25 mg Hydromorphone HCl (Dilaudid) 1 mg IVP Q4HR PRN PRN Reason: Pain (Moderate) Stop: 10/17/16 12:09 Last Admin: 08/21/16 07:21 Dose: 1 mg Ceftriaxone Sodium 1 gm/ (Sodium Chloride) 50 mls @ 100 mls/hr IV Q24HR [facility] Stop: 10/16/16 10:59 Last Admin: 08/20/16 10:06 Dose: 100 mls/hr Dextrose/Sodium Chloride (D5-0.45ns) 1,000 mls @ 100 mls/hr IV .Q10H [facility] Stop: 10/19/16 18:14 Last Admin: 08/21/16 09:10 Dose: 100 mls/hr Insulin Aspart (Novolog Insulin Sliding Scale) 0 units SUBQ Q6HR [facility] PRN Reason: Protocol Stop: 10/16/16 11:59 Last Admin: 08/21/16 07:30 Dose: Not Given Insulin Detemir (Levemir Insulin) 20 units SUBQ HS [facility] PRN Reason: Protocol Stop: 10/19/16 20:59 Last Admin: 08/20/16 20:38 Dose: 20 units Ondansetron HCl (Zofran) 4 mg IV Q6H PRN PRN Reason: Nausea / Vomiting Stop: 10/16/16 06:22 Last Admin: 08/21/16 03:48 Dose: 4 mg Patient Own Med- (Tivicay 50mg Tablet) 1 PO DAILY ESTEE Stop: 10/17/16 17:59 Last Admin: 08/21/16 09:10 Dose: 1 Patient Own Med- Epzicom (Abacavir 600mg/Lamivudine 300mg) 1 PO DAILY [facility] Stop: 10/17/16 17:59 Last Admin: 08/21/16 09:10 Dose: 1 Sodium Bicarbonate (Sodium Bicarbonate) 650 mg PO BID ESTEE PRN Reason: Protocol Stop: 10/17/16 16:59 Last Admin: 08/21/16 09:09 Dose: 650 mg General: Alert, No acute distress HEENT: Atraumatic, Mucous membr. moist/pink Neck: Supple, +2 carotid pulse wo bruit Cardiovascular: Regular rate, Normal S1, Normal S2 Lungs: Clear to auscultation Abdomen: Bowel sounds, Soft Extremities: no Edema Neurological: Normal gait, Strength at 5/5 X4 ext, Sensation intact Skin: no Rash Assessment/Plan - Assessment Assessment: donna on ckd acute gatroenteritis type 1 dm ooc ess htn anemia of cd severe malnutiriton HIV, no ARC Hx right foot dellulitis S/p amp right 2nd digit NG met acid - Plan Plan: continue ivf creatinine stable @ 1.8, likely baseline started NaHCO3 encourage po intake f/u electrolytes
[2016-08-21] MEDS: cefTRIAXone 1 GM in 0.9% NS 50 ML IV SCH (11:24)
[2016-08-21] MEDS: Insulin Detemir 100 units/mL 10mL Vial SUBQ SCH (23:39)
[2016-08-22] MEDS: INSULIN ASPART SLIDING SCALE 100 UNITS/ML UNIT SUBQ SCH ×4 (00:47→17:51)
[2016-08-22] MEDS: HYDROmorphone 1 mg/mL 1mL Syr IVP PRN ×5 (00:58→22:26)
[2016-08-22 07:19] LABS: % BASOPHILS 0.5 % (0.0-2.0); % EOSINOPHILS 2.2 % (0.0-5.0); % LYMPHOCYTES 25.6 % (20.0-50.0); % MONOCYTES 4.3 % (2.0-10.0); % NEUTROPHILS 67.4 % (40.0-80.0); HEMATOCRIT 24.9 % (35.0-45.0); HEMOGLOBIN 8.3 gm/dL (11.7-15.5); MEAN CORPUSCULAR HEMOGLOBIN 24.6 pg (27.0-31.0); MEAN CORPUSCULAR HGB CONC 33.2 pg (28.0-36.0); MEAN PLATELET VOLUME 6.2 fl; NEUTROPHILE ABSOLUTE 6.5 Th/cmm (1.8-8.0); RED BLOOD COUNT 3.37 Mil/cmm (3.80-5.10); RED CELL DISTRIBUTION WIDTH 14.4 % (11.5-20.0); WHITE BLOOD COUNT 9.6 Th/cmm (4.8-10.8)
[2016-08-22 07:58] LABS: PLATELET COUNT 762 Th/cmm (150-400)
[2016-08-22] MEDS: TIVICAY 50 MG PO SCH (09:10)
[2016-08-22] MEDS: cefTRIAXone 1 GM in 0.9% NS 50 ML IV SCH (11:30)
[2016-08-22] MEDS: D5-0.45NS 1,000 ML IV SCH ×2 (13:17→13:18)
--- NOTE | 2016-08-22 15:21 | General Progress Note ---
Subjective - Review of Systems Service Date: 08/22/16 Subjective: sleeping, comfortable, less N/V Objective - Results Result Diagrams: 08/22/16 07:08 08/21/16 06:42 Recent Labs: Laboratory Last Values WBC 9.6 Th/cmm (4.8-10.8) 08/22/16 07:08 RBC 3.37 Mil/cmm (3.80-5.10) L 08/22/16 07:08 Hgb 8.3 gm/dL (11.7-15.5) L 08/22/16 07:08 Hct 24.9 % (35.0-45.0) L 08/22/16 07:08 MCV 74.0 fl (81-100) L 08/22/16 07:08 MCH 24.6 pg (27.0-31.0) L 08/22/16 07:08 MCHC Differential 33.2 pg (28.0-36.0) 08/22/16 07:08 RDW 14.4 % (11.5-20.0) 08/22/16 07:08 Plt Count 762 Th/cmm (150-400) H* 08/22/16 07:08 MPV 6.2 fl 08/22/16 07:08 Neutrophils % 67.4 % (40.0-80.0) 08/22/16 07:08 Band Neutrophils % 4 % (0-10) 08/21/16 06:42 Lymphocytes % 25.6 % (20.0-50.0) 08/22/16 07:08 Monocytes % 4.3 % (2.0-10.0) 08/22/16 07:08 Eosinophils % 2.2 % (0.0-5.0) 08/22/16 07:08 Basophils % 0.5 % (0.0-2.0) 08/22/16 07:08 Neutrophils (Manual) 57 % (40-80) 08/21/16 06:42 Lymphocytes 25 % (20-50) 08/21/16 06:42 Monocytes 10 % (2-10) 08/21/16 06:42 Eosinophils 3 % (0-5) 08/21/16 06:42 Basophils 1 % (0-3) 08/21/16 06:42 Platelet Estimate INCREASED PLATELETS (NORMAL) 08/21/16 06:42 Platelet Morphology NORMAL (NORMAL) 08/21/16 06:42 Polychromasia 1+ 08/21/16 06:42 Anisocytosis 1+ 08/21/16 06:42 Microcytosis 2+ 08/21/16 06:42 RBC Morph Micro Appear ABNORMAL (NORMAL) 08/21/16 06:42 Eos Smear Source URINE 08/19/16 11:10 Eos Smear Total Cells NONE SEEN (NONE SEEN) 08/19/16 11:10 PT 8.9 SECONDS (9.5-11.5) L 08/18/16 13:50 INR 0.90 (0.5-1.4) 08/18/16 13:50 Sodium 135 mEq/L (136-145) L 08/21/16 06:42 Potassium 4.1 mEq/L (3.5-5.1) 08/21/16 06:42 Chloride 112 mEq/L (98-107) H 08/21/16 06:42 Carbon Dioxide 19.7 mEq/L (21.0-31.0) L 08/21/16 06:42 Anion Gap 7.4 (7.0-16.0) 08/21/16 06:42 BUN 13 mg/dL (7-25) 08/21/16 06:42 Creatinine 1.8 mg/dL (0.6-1.2) H 08/21/16 06:42 Est GFR ( Amer) 40.9 ml/min 08/21/16 06:42 Est GFR (Non-Af Amer) 33.8 ml/min 08/21/16 06:42 BUN/Creatinine Ratio 7.2 08/21/16 06:42 Glucose 50 mg/dL (70-105) L 08/21/16 06:42 POC Glucose 143 MG/DL (70 - 105) H 08/22/16 12:39 Hemoglobin A1c % 14.5 % (4.0-6.0) H 08/17/16 06:56 Uric Acid 5.2 mg/dL (2.3-6.6) 08/19/16 09:10 Calcium 9.0 mg/dL (8.6-10.3) 08/21/16 06:42 Phosphorus 2.9 mg/dL (2.5-5.0) 08/17/16 06:56 Magnesium 1.9 mg/dL (1.9-2.7) 08/21/16 06:42 Total Bilirubin 0.1 mg/dL (0.3-1.0) L 08/21/16 06:42 AST 20 U/L (13-39) 08/21/16 06:42 ALT 12 U/L (7-52) 08/21/16 06:42 Alkaline Phosphatase 124 U/L (34-104) H 08/21/16 06:42 Total Protein 6.6 gm/dL (6.0-8.3) 08/21/16 06:42 Albumin 2.3 gm/dL (3.7-5.3) L 08/21/16 06:42 Globulin 4.3 gm/dL 08/21/16 06:42 Albumin/Globulin Ratio 0.5 (1.0-1.8) L 08/21/16 06:42 Urine Source MIDSTREAM 08/19/16 11:10 Urine Color YELLOW 08/19/16 11:10 Urine Clarity SL. CLOUDY (CLEAR) 08/19/16 11:10 Urine pH 6.0 08/19/16 11:10 Ur Specific [place] 1.020 (1.005-1.030) 08/19/16 11:10 Urine Protein >300 mg/dL (NEGATIVE) H 08/19/16 11:10 Urine Glucose (UA) 250 mg/dL (NEGATIVE) H 08/19/16 11:10 Urine Ketones NEGATIVE mg/dL (NEGATIVE) 08/19/16 11:10 Urine Blood MODERATE (NEGATIVE) H 08/19/16 11:10 Urine Nitrate NEGATIVE (NEGATIVE) 08/19/16 11:10 Urine Bilirubin NEGATIVE (NEGATIVE) 08/19/16 11:10 Urine Urobilinogen 0.2 E.U./dL (0.2 - 1.0) 08/19/16 11:10 Ur Leukocyte Esterase NEGATIVE (NEGATIVE) 08/19/16 11:10 Urine RBC 4-7 /hpf (0-5) 08/19/16 11:10 Urine WBC 2-5 /hpf (0-5) 08/19/16 11:10 Ur Epithelial Cells MODERATE /lpf (FEW) 08/19/16 11:10 Urine Bacteria OCCASIONAL /hpf (NONE SEEN) 08/19/16 11:10 Urine Creatinine 66.0 mg/dl (28.0-217.0) 08/19/16 11:10 Absolute CD4 Count SEE REPORT 08/17/16 13:20 Blood Type O POSITIVE 08/18/16 09:20 Antibody Screen NEGATIVE 08/18/16 09:20 Crossmatch See Detail 08/18/16 09:20 - Physical Exam Vitals and I&O: Vital Signs Temp 97.8 F 08/22/16 08:00 Pulse 124 08/22/16 13:15 Resp 18 08/22/16 08:00 BP 124/87 08/22/16 13:15 Pulse Ox 97 08/21/16 16:00 Intake & Output 08/21/16 08/22/16 08/22/16 18:59 06:59 18:59 Intake Total 50 1300 1000 Balance 50 1300 1000 Intake: Intake, IV Amount 50 1000 1000 D5-0.45NS 1,000 ml @ 100 1000 1000 mls/hr IV .Q10H [facility] Rx#: [id number] cefTRIAXone 1 gm In 50 Sodium Chloride 0.9% 50 ml @ 100 mls/hr IV Q24HR [facility] Rx#:[id number] Oral 300 Other: # Voids 3 Stool Characteristics Soft Liquid Liquid Active Medications: Current Medications Clonidine HCl (Catapres) 0.1 mg PO Q8HR PRN PRN Reason: SBP GREATER THAN 160 Stop: 10/16/16 06:25 Last Admin: 08/19/16 08:45 Dose: 0.1 mg Clonidine HCl (Catapres) 0.1 mg PO BID [facility] Stop: 10/21/16 16:59 Hydralazine HCl (Apresoline) 25 mg PO TID [facility] Stop: 10/19/16 08:59 Last Admin: 08/22/16 13:15 Dose: 25 mg Hydromorphone HCl (Dilaudid) 1 mg IVP Q4HR PRN PRN Reason: Pain (Moderate) Stop: 10/17/16 12:09 Last Admin: 08/22/16 13:16 Dose: 1 mg Ceftriaxone Sodium 1 gm/ (Sodium Chloride) 50 mls @ 100 mls/hr IV Q24HR [facility] Stop: 10/16/16 10:59 Last Admin: 08/22/16 11:30 Dose: 100 mls/hr Potassium Chloride 10 meq/ (Dextrose) 1,005 mls @ 75 mls/hr IV .[id number] [facility] Stop: 10/21/16 13:29 Insulin Aspart (Novolog Insulin Sliding Scale) 0 units SUBQ Q6HR [facility] PRN Reason: Protocol Stop: 10/16/16 11:59 Last Admin: 08/22/16 12:17 Dose: Not Given Insulin Detemir (Levemir Insulin) 20 units SUBQ HS [facility] PRN Reason: Protocol Stop: 10/19/16 20:59 Last Admin: 08/21/16 23:39 Dose: 20 units Metoclopramide HCl (Reglan) 5 mg PO ACHS [facility] Stop: 10/20/16 11:29 Last Admin: 08/22/16 12:15 Dose: 5 mg Ondansetron HCl (Zofran) 4 mg IV Q6H PRN PRN Reason: Nausea / Vomiting Stop: 10/16/16 06:22 Last Admin: 08/21/16 03:48 Dose: 4 mg Pantoprazole Sodium (Protonix) 40 mg IVP DAILY [facility] Stop: 10/20/16 10:44 Last Admin: 08/22/16 09:03 Dose: 40 mg Patient Own Med- (Tivicay 50mg Tablet) 1 PO DAILY [facility] Stop: 10/17/16 17:59 Last Admin: 08/22/16 09:10 Dose: 1 Patient Own Med- Epzicom (Abacavir 600mg/Lamivudine 300mg) 1 PO DAILY [facility] Stop: 10/17/16 17:59 Last Admin: 08/22/16 09:10 Dose: 1 Sodium Bicarbonate (Sodium Bicarbonate) 650 mg PO BID [facility] PRN Reason: Protocol Stop: 10/17/16 16:59 Last Admin: 08/22/16 09:09 Dose: 650 mg General: Alert, Mild distress HEENT: Atraumatic, Mucous membr. moist/pink Neck: Supple, +2 carotid pulse wo bruit Cardiovascular: Regular rate, Normal S1, Normal S2 Lungs: Clear to auscultation Abdomen: Bowel sounds, Soft Extremities: no Edema Neurological: Strength at 5/5 X4 ext, Sensation intact Skin: no Rash Assessment/Plan - Assessment Assessment: donna on ckd acute gatroenteritis type 1 dm ooc ess htn anemia of cd severe malnutiriton HIV, no ARC Hx right foot dellulitis S/p amp right 2nd digit NG met acid - Plan Plan: continue ivf creatinine stable @ 1.8, likely baseline started NaHCO3 encourage po intake f/u electrolytes
--- NOTE | 2016-08-22 21:10 | Infectious Disease Prog Note ---
Infectious Disease Subjective - Review of Systems Service Date: 08/22/16 Subjective: no fever. Infectious Disease Objective - Results Result Diagrams: 08/22/16 07:08 08/21/16 06:42 Recent Labs: Laboratory Last Values WBC 9.6 Th/cmm (4.8-10.8) 08/22/16 07:08 RBC 3.37 Mil/cmm (3.80-5.10) L 08/22/16 07:08 Hgb 8.3 gm/dL (11.7-15.5) L 08/22/16 07:08 Hct 24.9 % (35.0-45.0) L 08/22/16 07:08 MCV 74.0 fl (81-100) L 08/22/16 07:08 MCH 24.6 pg (27.0-31.0) L 08/22/16 07:08 MCHC Differential 33.2 pg (28.0-36.0) 08/22/16 07:08 RDW 14.4 % (11.5-20.0) 08/22/16 07:08 Plt Count 762 Th/cmm (150-400) H* 08/22/16 07:08 MPV 6.2 fl 08/22/16 07:08 Neutrophils % 67.4 % (40.0-80.0) 08/22/16 07:08 Band Neutrophils % 4 % (0-10) 08/21/16 06:42 Lymphocytes % 25.6 % (20.0-50.0) 08/22/16 07:08 Monocytes % 4.3 % (2.0-10.0) 08/22/16 07:08 Eosinophils % 2.2 % (0.0-5.0) 08/22/16 07:08 Basophils % 0.5 % (0.0-2.0) 08/22/16 07:08 Neutrophils (Manual) 57 % (40-80) 08/21/16 06:42 Lymphocytes 25 % (20-50) 08/21/16 06:42 Monocytes 10 % (2-10) 08/21/16 06:42 Eosinophils 3 % (0-5) 08/21/16 06:42 Basophils 1 % (0-3) 08/21/16 06:42 Platelet Estimate INCREASED PLATELETS (NORMAL) 08/21/16 06:42 Platelet Morphology NORMAL (NORMAL) 08/21/16 06:42 Polychromasia 1+ 08/21/16 06:42 Anisocytosis 1+ 08/21/16 06:42 Microcytosis 2+ 08/21/16 06:42 RBC Morph Micro Appear ABNORMAL (NORMAL) 08/21/16 06:42 Eos Smear Source URINE 08/19/16 11:10 Eos Smear Total Cells NONE SEEN (NONE SEEN) 08/19/16 11:10 PT 8.9 SECONDS (9.5-11.5) L 08/18/16 13:50 INR 0.90 (0.5-1.4) 08/18/16 13:50 Sodium 135 mEq/L (136-145) L 08/21/16 06:42 Potassium 4.1 mEq/L (3.5-5.1) 08/21/16 06:42 Chloride 112 mEq/L (98-107) H 08/21/16 06:42 Carbon Dioxide 19.7 mEq/L (21.0-31.0) L 08/21/16 06:42 Anion Gap 7.4 (7.0-16.0) 08/21/16 06:42 BUN 13 mg/dL (7-25) 08/21/16 06:42 Creatinine 1.8 mg/dL (0.6-1.2) H 08/21/16 06:42 Est GFR ( Amer) 40.9 ml/min 08/21/16 06:42 Est GFR (Non-Af Amer) 33.8 ml/min 08/21/16 06:42 BUN/Creatinine Ratio 7.2 08/21/16 06:42 Glucose 50 mg/dL (70-105) L 08/21/16 06:42 POC Glucose 222 MG/DL (70 - 105) H 08/22/16 17:08 Hemoglobin A1c % 14.5 % (4.0-6.0) H 08/17/16 06:56 Uric Acid 5.2 mg/dL (2.3-6.6) 08/19/16 09:10 Calcium 9.0 mg/dL (8.6-10.3) 08/21/16 06:42 Phosphorus 2.9 mg/dL (2.5-5.0) 08/17/16 06:56 Magnesium 1.9 mg/dL (1.9-2.7) 08/21/16 06:42 Total Bilirubin 0.1 mg/dL (0.3-1.0) L 08/21/16 06:42 AST 20 U/L (13-39) 08/21/16 06:42 ALT 12 U/L (7-52) 08/21/16 06:42 Alkaline Phosphatase 124 U/L (34-104) H 08/21/16 06:42 Total Protein 6.6 gm/dL (6.0-8.3) 08/21/16 06:42 Albumin 2.3 gm/dL (3.7-5.3) L 08/21/16 06:42 Globulin 4.3 gm/dL 08/21/16 06:42 Albumin/Globulin Ratio 0.5 (1.0-1.8) L 08/21/16 06:42 Urine Source MIDSTREAM 08/19/16 11:10 Urine Color YELLOW 08/19/16 11:10 Urine Clarity SL. CLOUDY (CLEAR) 08/19/16 11:10 Urine pH 6.0 08/19/16 11:10 Ur Specific [place] 1.020 (1.005-1.030) 08/19/16 11:10 Urine Protein >300 mg/dL (NEGATIVE) H 08/19/16 11:10 Urine Glucose (UA) 250 mg/dL (NEGATIVE) H 08/19/16 11:10 Urine Ketones NEGATIVE mg/dL (NEGATIVE) 08/19/16 11:10 Urine Blood MODERATE (NEGATIVE) H 08/19/16 11:10 Urine Nitrate NEGATIVE (NEGATIVE) 08/19/16 11:10 Urine Bilirubin NEGATIVE (NEGATIVE) 08/19/16 11:10 Urine Urobilinogen 0.2 E.U./dL (0.2 - 1.0) 08/19/16 11:10 Ur Leukocyte Esterase NEGATIVE (NEGATIVE) 08/19/16 11:10 Urine RBC 4-7 /hpf (0-5) 08/19/16 11:10 Urine WBC 2-5 /hpf (0-5) 08/19/16 11:10 Ur Epithelial Cells MODERATE /lpf (FEW) 08/19/16 11:10 Urine Bacteria OCCASIONAL /hpf (NONE SEEN) 08/19/16 11:10 Urine Creatinine 66.0 mg/dl (28.0-217.0) 08/19/16 11:10 Absolute CD4 Count SEE REPORT 08/17/16 13:20 Blood Type O POSITIVE 08/18/16 09:20 Antibody Screen NEGATIVE 08/18/16 09:20 Crossmatch See Detail 08/18/16 09:20 - Physical Exam Vitals and I&O: Vital Signs Temp 99.9 F 08/22/16 16:40 Pulse 111 08/22/16 17:54 Resp 18 08/22/16 16:40 BP 131/73 08/22/16 16:40 Pulse Ox 97 08/22/16 16:40 Intake & Output 08/22/16 08/22/16 08/23/16 06:59 18:59 06:59 Intake Total 1300 1000 Balance 1300 1000 Intake: Intake, IV Amount 1000 1000 D5-0.45NS 1,000 ml @ 100 1000 1000 mls/hr IV .Q10H [facility] Rx#: [id number] Oral 300 Other: # Voids 3 Stool Characteristics Liquid Active Medications: Current Medications Clonidine HCl (Catapres) 0.1 mg PO Q8HR PRN PRN Reason: SBP GREATER THAN 160 Stop: 10/16/16 06:25 Last Admin: 08/19/16 08:45 Dose: 0.1 mg Clonidine HCl (Catapres) 0.1 mg PO BID [facility] Stop: 10/21/16 16:59 Last Admin: 08/22/16 17:54 Dose: 0.1 mg Hydralazine HCl (Apresoline) 25 mg PO TID [facility] Stop: 10/19/16 08:59 Last Admin: 08/22/16 13:15 Dose: 25 mg Hydromorphone HCl (Dilaudid) 1 mg IVP Q4HR PRN PRN Reason: Pain (Moderate) Stop: 10/17/16 12:09 Last Admin: 08/22/16 18:23 Dose: 1 mg Ceftriaxone Sodium 1 gm/ (Sodium Chloride) 50 mls @ 100 mls/hr IV Q24HR [facility] Stop: 10/16/16 10:59 Last Admin: 08/22/16 11:30 Dose: 100 mls/hr Potassium Chloride 10 meq/ (Dextrose) 1,005 mls @ 75 mls/hr IV .[id number] [facility] Stop: 10/21/16 13:29 Insulin Aspart (Novolog Insulin Sliding Scale) 0 units SUBQ Q6HR [facility] PRN Reason: Protocol Stop: 10/16/16 11:59 Last Admin: 08/22/16 17:51 Dose: 4 units Insulin Detemir (Levemir Insulin) 20 units SUBQ HS [facility] PRN Reason: Protocol Stop: 10/19/16 20:59 Last Admin: 08/21/16 23:39 Dose: 20 units Metoclopramide HCl (Reglan) 5 mg PO ACHS [facility] Stop: 10/20/16 11:29 Last Admin: 08/22/16 17:54 Dose: 5 mg Ondansetron HCl (Zofran) 4 mg IV Q6H PRN PRN Reason: Nausea / Vomiting Stop: 10/16/16 06:22 Last Admin: 08/21/16 03:48 Dose: 4 mg Pantoprazole Sodium (Protonix) 40 mg IVP DAILY [facility] Stop: 10/20/16 10:44 Last Admin: 08/22/16 09:03 Dose: 40 mg Patient Own Med- (Tivicay 50mg Tablet) 1 PO DAILY [facility] Stop: 10/17/16 17:59 Last Admin: 08/22/16 09:10 Dose: 1 Patient Own Med- Epzicom (Abacavir 600mg/Lamivudine 300mg) 1 PO DAILY [facility] Stop: 10/17/16 17:59 Last Admin: 08/22/16 09:10 Dose: 1 Sodium Bicarbonate (Sodium Bicarbonate) 650 mg PO BID [facility] PRN Reason: Protocol Stop: 10/17/16 16:59 Last Admin: 08/22/16 09:09 Dose: 650 mg General: no acute distress, well developed, well nourished HEENT: atraumatic, normocephalic, PERRLA, EOMI Neck: supple, no thyromegaly, no lymphadenopathy Cardiovascular: S1S2, regular Lungs: clear to auscultation bilaterally, clear to percussion Abdomen: soft, no tender, no distended Extremities: no cyanosis, no clubbing, no edema Neurological: awake, alert, oriented, CN 2-12 intact Skin: intact Infectious Disease Assmt/Plan - Assessment Assessment: Impression: 1. Leukocytosis. better. 2. DM 3. HIV. CD4 435 (15%). 4. Gastroenteritis better. 5. HTN. 6. CKD 3. 7. Pyelonephritis. - Plan Plan: Continue ART. Continue rocephin , may initiate dc plan and may change rocephin to cipro 250 mg po bid for 7 more days. initiate dc plan.
[2016-08-22] MEDS: Insulin Detemir 100 units/mL 10mL Vial SUBQ SCH (22:32)
[2016-08-23] MEDS: HYDROmorphone 1 mg/mL 1mL Syr IVP PRN ×3 (04:19→13:50)
[2016-08-23 05:51] LABS: HEMATOCRIT 24.2 % (35.0-45.0); MEAN CELL VOLUME 74.1 fl (81-100); MEAN CORPUSCULAR HEMOGLOBIN 24.5 pg (27.0-31.0); MEAN CORPUSCULAR HGB CONC 33.1 pg (28.0-36.0); MEAN PLATELET VOLUME 6.4 fl; RED BLOOD COUNT 3.26 Mil/cmm (3.80-5.10); RED CELL DISTRIBUTION WIDTH 14.6 % (11.5-20.0); WHITE BLOOD COUNT 10.6 Th/cmm (4.8-10.8)
[2016-08-23 05:53] LABS: PLATELET COUNT 779 Th/cmm (150-400)
[2016-08-23 06:05] LABS: ANION GAP 5.6 (7.0-16.0); BUN/CREATININE RATIO 7.2; CALCIUM SERUM 8.7 mg/dL (8.6-10.3); CARBON DIOXIDE 20.6 mEq/L (21.0-31.0); CREATININE - SERUM 2.5 mg/dL (0.6-1.2); MAGNESIUM 1.9 mg/dL (1.9-2.7); POTASSIUM SERUM 4.2 mEq/L (3.5-5.1)
[2016-08-23] MEDS: INSULIN ASPART SLIDING SCALE 100 UNITS/ML UNIT SUBQ SCH ×2 (06:35)
[2016-08-23] MEDS: TIVICAY 50 MG PO SCH (09:28)
[2016-08-23 09:47] LABS: ANISOCYTOSIS 1+; EOSINOPHIL 4 % (0-5); MICROCYTOSIS 2+; NEUTROPHILS 65 % (40-80); PLATELET ESTIMATE INCREASED PLATELETS (NORMAL); PLATELET MORPHOLOGY NORMAL (NORMAL); TOTAL CELLS COUNTED 100
[2016-08-23] MEDS: cefTRIAXone 1 GM in 0.9% NS 50 ML IV SCH (11:00)
[2016-08-23] MEDS ORDERED: INSULIN ASPART SLIDING SCALE 100 UNITS/ML UNIT SUBQ SCH (11:30)
--- NOTE | 2016-08-23 11:36 | General Progress Note ---
Subjective - Review of Systems Service Date: 08/23/16 Subjective: I am better Objective - Results Result Diagrams: 08/23/16 05:20 08/23/16 05:20 Recent Labs: Laboratory Last Values WBC 10.6 Th/cmm (4.8-10.8) 08/23/16 05:20 RBC 3.26 Mil/cmm (3.80-5.10) L 08/23/16 05:20 Hgb 8.0 gm/dL (11.7-15.5) L 08/23/16 05:20 Hct 24.2 % (35.0-45.0) L 08/23/16 05:20 MCV 74.1 fl (81-100) L 08/23/16 05:20 MCH 24.5 pg (27.0-31.0) L 08/23/16 05:20 MCHC Differential 33.1 pg (28.0-36.0) 08/23/16 05:20 RDW 14.6 % (11.5-20.0) 08/23/16 05:20 Plt Count 779 Th/cmm (150-400) H* 08/23/16 05:20 MPV 6.4 fl 08/23/16 05:20 Neutrophils % 67.4 % (40.0-80.0) 08/22/16 07:08 Band Neutrophils % 4 % (0-10) 08/21/16 06:42 Lymphocytes % 25.6 % (20.0-50.0) 08/22/16 07:08 Monocytes % 4.3 % (2.0-10.0) 08/22/16 07:08 Eosinophils % 2.2 % (0.0-5.0) 08/22/16 07:08 Basophils % 0.5 % (0.0-2.0) 08/22/16 07:08 Neutrophils (Manual) 65 % (40-80) 08/23/16 05:20 Lymphocytes 27 % (20-50) 08/23/16 05:20 Monocytes 4 % (2-10) 08/23/16 05:20 Eosinophils 4 % (0-5) 08/23/16 05:20 Basophils 1 % (0-3) 08/21/16 06:42 Platelet Estimate INCREASED PLATELETS (NORMAL) 08/23/16 05:20 Platelet Morphology NORMAL (NORMAL) 08/23/16 05:20 Polychromasia 1+ 08/21/16 06:42 Anisocytosis 1+ 08/23/16 05:20 Microcytosis 2+ 08/23/16 05:20 RBC Morph Micro Appear ABNORMAL (NORMAL) 08/23/16 05:20 Eos Smear Source URINE 08/19/16 11:10 Eos Smear Total Cells NONE SEEN (NONE SEEN) 08/19/16 11:10 PT 8.9 SECONDS (9.5-11.5) L 08/18/16 13:50 INR 0.90 (0.5-1.4) 08/18/16 13:50 Sodium 131 mEq/L (136-145) L 08/23/16 05:20 Potassium 4.2 mEq/L (3.5-5.1) 08/23/16 05:20 Chloride 109 mEq/L (98-107) H 08/23/16 05:20 Carbon Dioxide 20.6 mEq/L (21.0-31.0) L 08/23/16 05:20 Anion Gap 5.6 (7.0-16.0) L 08/23/16 05:20 BUN 18 mg/dL (7-25) 08/23/16 05:20 Creatinine 2.5 mg/dL (0.6-1.2) H 08/23/16 05:20 Est GFR ( Amer) 28.0 ml/min 08/23/16 05:20 Est GFR (Non-Af Amer) 23.2 ml/min 08/23/16 05:20 BUN/Creatinine Ratio 7.2 08/23/16 05:20 Glucose 164 mg/dL (70-105) H 08/23/16 05:20 POC Glucose 157 MG/DL (70 - 105) H 08/23/16 05:50 Hemoglobin A1c % 14.5 % (4.0-6.0) H 08/17/16 06:56 Uric Acid 5.2 mg/dL (2.3-6.6) 08/19/16 09:10 Calcium 8.7 mg/dL (8.6-10.3) 08/23/16 05:20 Phosphorus 2.9 mg/dL (2.5-5.0) 08/17/16 06:56 Magnesium 1.9 mg/dL (1.9-2.7) 08/23/16 05:20 Total Bilirubin 0.1 mg/dL (0.3-1.0) L 08/21/16 06:42 AST 20 U/L (13-39) 08/21/16 06:42 ALT 12 U/L (7-52) 08/21/16 06:42 Alkaline Phosphatase 124 U/L (34-104) H 08/21/16 06:42 Total Protein 6.6 gm/dL (6.0-8.3) 08/21/16 06:42 Albumin 2.3 gm/dL (3.7-5.3) L 08/21/16 06:42 Globulin 4.3 gm/dL 08/21/16 06:42 Albumin/Globulin Ratio 0.5 (1.0-1.8) L 08/21/16 06:42 Urine Source MIDSTREAM 08/19/16 11:10 Urine Color YELLOW 08/19/16 11:10 Urine Clarity SL. CLOUDY (CLEAR) 08/19/16 11:10 Urine pH 6.0 08/19/16 11:10 Ur Specific [place] 1.020 (1.005-1.030) 08/19/16 11:10 Urine Protein >300 mg/dL (NEGATIVE) H 08/19/16 11:10 Urine Glucose (UA) 250 mg/dL (NEGATIVE) H 08/19/16 11:10 Urine Ketones NEGATIVE mg/dL (NEGATIVE) 08/19/16 11:10 Urine Blood MODERATE (NEGATIVE) H 08/19/16 11:10 Urine Nitrate NEGATIVE (NEGATIVE) 08/19/16 11:10 Urine Bilirubin NEGATIVE (NEGATIVE) 08/19/16 11:10 Urine Urobilinogen 0.2 E.U./dL (0.2 - 1.0) 08/19/16 11:10 Ur Leukocyte Esterase NEGATIVE (NEGATIVE) 08/19/16 11:10 Urine RBC 4-7 /hpf (0-5) 08/19/16 11:10 Urine WBC 2-5 /hpf (0-5) 08/19/16 11:10 Ur Epithelial Cells MODERATE /lpf (FEW) 08/19/16 11:10 Urine Bacteria OCCASIONAL /hpf (NONE SEEN) 08/19/16 11:10 Ur Random Sodium 48 mmol/L 08/23/16 04:10 Urine Creatinine 66.0 mg/dl (28.0-217.0) 08/19/16 11:10 Absolute CD4 Count SEE REPORT 08/17/16 13:20 Blood Type O POSITIVE 08/18/16 09:20 Antibody Screen NEGATIVE 08/18/16 09:20 Crossmatch See Detail 08/18/16 09:20 - Physical Exam Vitals and I&O: Vital Signs Temp 98.4 F 08/23/16 08:00 Pulse 98 08/23/16 09:26 Resp 20 08/23/16 08:00 BP 139/79 08/23/16 09:26 Pulse Ox 96 08/23/16 08:00 Intake & Output 08/22/16 08/23/16 08/23/16 18:59 06:59 18:59 Intake Total 1000 300 Balance 1000 300 Intake: Intake, IV Amount 1000 D5-0.45NS 1,000 ml @ 100 1000 mls/hr IV .Q10H [facility] Rx#: [id number] Oral 300 Other: # Voids 3 Stool Characteristics Liquid Active Medications: Current Medications Clonidine HCl (Catapres) 0.1 mg PO Q8HR PRN PRN Reason: SBP GREATER THAN 160 Stop: 10/16/16 06:25 Last Admin: 08/19/16 08:45 Dose: 0.1 mg Clonidine HCl (Catapres) 0.1 mg PO BID [facility] Stop: 10/21/16 16:59 Last Admin: 08/23/16 09:09 Dose: Not Given Hydralazine HCl (Apresoline) 25 mg PO TID [facility] Stop: 10/19/16 08:59 Last Admin: 08/23/16 09:26 Dose: 25 mg Hydromorphone HCl (Dilaudid) 1 mg IVP Q4HR PRN PRN Reason: Pain (Moderate) Stop: 10/17/16 12:09 Last Admin: 08/23/16 09:25 Dose: 1 mg Ceftriaxone Sodium 1 gm/ (Sodium Chloride) 50 mls @ 100 mls/hr IV Q24HR [facility] Stop: 10/16/16 10:59 Last Admin: 08/22/16 11:30 Dose: 100 mls/hr Potassium Chloride 10 meq/ (Dextrose) 1,005 mls @ 75 mls/hr IV .[id number] [facility] Stop: 10/21/16 13:29 Last Admin: 08/22/16 21:38 Dose: 75 mls/hr Insulin Aspart (Novolog Insulin Sliding Scale) 0 units SUBQ ACHS ESTEE PRN Reason: Protocol Stop: 10/22/16 11:29 Insulin Detemir (Levemir Insulin) 20 units SUBQ HS ESTEE PRN Reason: Protocol Stop: 10/19/16 20:59 Last Admin: 08/22/16 22:32 Dose: 20 units Metoclopramide HCl (Reglan) 5 mg PO ACHS [facility] Stop: 10/20/16 11:29 Last Admin: 08/23/16 09:27 Dose: 5 mg Ondansetron HCl (Zofran) 4 mg IV Q6H PRN PRN Reason: Nausea / Vomiting Stop: 10/16/16 06:22 Last Admin: 08/21/16 03:48 Dose: 4 mg Pantoprazole Sodium (Protonix) 40 mg IVP DAILY [facility] Stop: 10/20/16 10:44 Last Admin: 08/23/16 09:25 Dose: 40 mg Patient Own Med- (Tivicay 50mg Tablet) 1 PO DAILY [facility] Stop: 10/17/16 17:59 Last Admin: 08/23/16 09:28 Dose: 1 Patient Own Med- Epzicom (Abacavir 600mg/Lamivudine 300mg) 1 PO DAILY [facility] Stop: 10/17/16 17:59 Last Admin: 08/23/16 09:27 Dose: 1 Sodium Bicarbonate (Sodium Bicarbonate) 650 mg PO BID ESTEE PRN Reason: Protocol Stop: 10/17/16 16:59 Last Admin: 08/23/16 09:26 Dose: 650 mg General: Alert, Oriented x3, Cooperative, No acute distress HEENT: Atraumatic Neck: Supple Cardiovascular: Regular rate Lungs: Clear to auscultation Abdomen: Bowel sounds, Soft Extremities: Other Neurological: Normal gait Skin: Other (Warm and dry) Psych/Mental Status: Mental status NL Assessment/Plan - Assessment Assessment: Patient is awake, alert, in no acute distress. Dx: Vomit and diarrhea resolved , Leukocytosis Resolved, AKD over CKD improved, Anemia, HIV. - Plan Plan: Patient will be discharge
--- NOTE | 2016-08-28 12:03 | Discharge Summary ---
CHIEF COMPLAINT: Fever, nausea, diarrhea, and vomiting. HISTORY OF PRESENT ILLNESS: This is the case of a 36-year-old -[place] who was having diarrhea, nausea, and vomiting for 3 days. She came to Emergency Room for evaluation and treatment. HOSPITAL COURSE AND TREATMENT: This patient was admitted in the telemetry unit. She was started on ceftriaxone and metronidazole. Consult with ID was done and recommendations were followed. She cut on diabetic diet. She was continued with home medications and HIV medication that she had. She had insulin sliding scale for diabetes. ID recommendations were followed and after 7 days in the hospital with this treatment, the patient improved enough and was considered to be discharged home to continue treatment with primary care physician. At the moment of the discharge, the patient was awake, alert, in no acute distress. HAND KISS SETTER IN THIS CASE: Farooq, ID. DISPOSITION: The patient is sent home to continue treatment with PCP. DIAGNOSES: 1. Diarrhea. 2. Elevated while blood cell. 3. Cellulitis in right side of head. 4. HIV. JOB# [id number]
== END 2016-08-23 16:50 | disposition home or self-care (01) | DRG 720 ==
LOC: TELE 04:45 → MSI 10:16
PROVIDERS: ADMIT General Practice; ATTEND General Practice
PROC: 30233N1 Transfusion of Nonautologous Red Blood Cells into Peripheral Vein, Percutaneous Approach (ICD-10-PCS; principal; 2016-08-18)
DX: A41.9 Sepsis, unspecified organism (principal); E43 Unspecified severe protein-calorie malnutrition; E10.21 Type 1 diabetes mellitus with diabetic nephropathy; N17.9 Acute kidney failure, unspecified; N18.3 Chronic kidney disease, stage 3 (moderate); K52.9 Noninfective gastroenteritis and colitis, unspecified; I12.9 Hypertensive chronic kidney disease with stage 1 through stage 4 chronic kidney disease, or unspecified chronic kidney disease; E78.5 Hyperlipidemia, unspecified; E10.65 Type 1 diabetes mellitus with hyperglycemia; N12 Tubulo-interstitial nephritis, not specified as acute or chronic; E10.22 Type 1 diabetes mellitus with diabetic chronic kidney disease; E10.42 Type 1 diabetes mellitus with diabetic polyneuropathy; D63.8 Anemia in other chronic diseases classified elsewhere; Z88.5 Allergy status to narcotic agent; Z88.6 Allergy status to analgesic agent; Z89.421 Acquired absence of other right toe(s); Z68.26 Body mass index [BMI] 26.0-26.9, adult; Z90.49 Acquired absence of other specified parts of digestive tract; Z21 Asymptomatic human immunodeficiency virus [HIV] infection status
CPT/HCPCS: 36415-UA; 70450-TC; 71010-TC; 76770-TC; 80048-TC; 80053-TC; 81001-TC; 81015-TC; 82570-TC; 82947-TC; 82948-90; 83036-90; 83735-TC; 84100-TC; 84300-TC; 84550-TC; 85007-TC; 85025-TC; 85027-TC; 85610-TC; 86361-90; 86850-TC; 86900-TC; 86901-TC; 86922-TC; 90799; C1751; C9113; J0696; J1170; J1815; J2405; J3480; J7030; J7070; P9016; Z7610

== ENCOUNTER 2016-10-17 00:35 | Inpatient (IN) | payer MEDICAID ==
[2016-10-17 01:17] VITALS: BP 146/89
[2016-10-17] MEDS ORDERED: Ipratropium Neb 0.5 mg/2.5 mL UD IH PRN (07:41)
[2016-10-17] MEDS ORDERED: Maalox 30 mL Cup PO PRN (07:41)
[2016-10-17] MEDS ORDERED: Albuterol Nebulizer 2.5mg/3mL IH PRN (07:41)
[2016-10-17] MEDS ORDERED: guaiFENesin 200 MG/10 ML UDC PO PRN (07:41)
[2016-10-17] MEDS: HYDROmorphone 1 mg/mL 1mL Syr IVP PRN ×3 (08:35→20:32)
[2016-10-17] MEDS: Sodium Chloride 0.9% 1,000 ML IV SCH ×2 (08:35→22:15)
[2016-10-17] MEDS ORDERED: INSULIN GLARGINE SQ SCH (09:00)
[2016-10-17] MEDS ORDERED: INSULIN LISPRO 15 UNIT SQ SCH (09:00)
[2016-10-17] MEDS: INSULIN ASPART, RECOMBINANT 100 UNITS/ML SUBQ SCH ×2 (09:26→14:00)
[2016-10-17] MEDS: Insulin Detemir 100 units/mL 10mL Vial SUBQ SCH (09:36)
[2016-10-17] MEDS: INSULIN ASPART SLIDING SCALE 100 UNITS/ML UNIT SUBQ SCH ×2 (12:36→16:25)
[2016-10-17] MEDS: Ampicillin Sodium/Sulbactam 3 GM in Sodium Chloride 0.9% 100 ML IV SCH ×2 (12:43→19:14)
[2016-10-17] MEDS: ABACAVIR SULFATE PO SCH (16:09)
[2016-10-17] MEDS: LAMIVUDINE PO SCH (16:09)
--- NOTE | 2016-10-17 16:15 | Internal Medicine Prog Note ---
Internal Medicine Subjective - Subjective Service Date: 10/17/16 ([id number] [facility]) Internal Medicine Objective - Results Recent Labs: Laboratory Last Values POC Glucose 144 MG/DL (70 - 105) H 10/17/16 12:32 - Physical Exam Vitals and I&O: Vital Signs Temp 97.9 F 10/17/16 12:00 Pulse 78 10/17/16 12:00 Resp 18 10/17/16 12:00 BP 153/97 10/17/16 12:00 Pulse Ox 98 10/17/16 12:00 Intake & Output 10/16/16 10/17/16 10/17/16 17:59 06:59 18:59 Intake Total 350 Balance 350 Intake: Intake, IV Amount 350 Ampicillin Sodium/ 100 Sulbactam 3 gm In Sodium Chloride 0.9% 100 ml @ 100 mls/hr IV Q6HR [facility] Rx #:[id number] Vancomycin HCl 1 gm In 250 Sodium Chloride 0.9% 250 ml @ 166.667 mls/hr IV Q24H [facility] Rx#:[id number] Active Medications: Current Medications Al Hydrox/Mg Hydrox/Simethicone (Maalox) 30 ml PO Q6HR PRN PRN Reason: Constipation Stop: 12/16/16 07:40 Albuterol Sulfate (Albuterol 2.5mg/3ml Neb Ud) 2.5 mg IH Q2HR PRN PRN Reason: Shortness of Breath or Wheeze Stop: 12/16/16 07:40 Guaifenesin (Robitussin) 200 mg PO Q4HR PRN PRN Reason: Cough or Congestion Stop: 12/16/16 07:40 Heparin Sodium (Porcine) (Heparin) 5,000 units SUBQ Q12HR [facility] Stop: 12/16/16 08:59 Last Admin: 10/17/16 09:37 Dose: 5,000 units Hydromorphone HCl (Dilaudid) 0.5 mg IVP Q4HR PRN PRN Reason: leg pain Stop: 12/16/16 08:13 Last Admin: 10/17/16 13:39 Dose: 0.5 mg Sodium Chloride (Nacl 0.9%) 1,000 mls @ 100 mls/hr IV .Q10H ESTEE Stop: 12/16/16 07:44 Last Admin: 10/17/16 08:35 Dose: 100 mls/hr Ampicillin Sodium/Sulbactam (Sodium 3 gm/ Sodium Chloride) 100 mls @ 100 mls/ hr IV Q6HR [facility] Stop: 12/16/16 11:59 Last Infusion: 10/17/16 14:45 Dose: Infused Vancomycin HCl 1 gm/ Sodium (Chloride) 250 mls @ 166.667 mls/hr IV Q24H [facility] Stop: 12/16/16 07:44 Last Infusion: 10/17/16 11:34 Dose: Infused Insulin Aspart (Novolog Insulin Sliding Scale) 0 units SUBQ Q4HR ETSEE PRN Reason: Protocol Stop: 12/16/16 11:59 Last Admin: 10/17/16 12:36 Dose: Not Given Insulin Aspart (Novolog) 15 units SUBQ TID [facility] Stop: 12/16/16 08:59 Last Admin: 10/17/16 14:00 Dose: Not Given Insulin Detemir (Levemir Insulin) 48 units SUBQ DAILY [facility] Stop: 12/16/16 08:59 Last Admin: 10/17/16 09:36 Dose: 48 units Ipratropium [place] (Atrovent Neb 0.5mg/2.5ml) 0.5 mg IH Q2HR PRN PRN Reason: Shortness of Breath or Wheeze Stop: 12/16/16 07:40 Metoprolol Tartrate (Lopressor) 50 mg PO DAILY [facility] Stop: 12/16/16 08:59 Last Admin: 10/17/16 09:39 Dose: 50 mg Miscellaneous (Abacavir Sulfate/Lamivudine [Epzicom Tablet]) 1 each PO DAILY [facility] Stop: 12/16/16 08:59 Last Admin: 10/17/16 16:09 Dose: 1 each Ondansetron HCl (Zofran) 4 mg IV Q8H PRN PRN Reason: Nausea / Vomiting Stop: 12/16/16 07:40 Last Admin: 10/17/16 08:36 Dose: 4 mg Patient Own Medication (Patient Own Med) 50 PO DAILY [facility] Stop: 12/16/16 08:59 Last Admin: 10/17/16 16:09 Dose: 50 Zolpidem Tartrate (Ambien) 10 mg PO HS PRN PRN Reason: Insomnia Stop: 12/16/16 07:40 - Procedures Procedures: Procedures Procedure Code Date TRANSFUSE NONAUT RED BLOOD CELLS IN PERIPH VEIN, PERC 94804T0 08/17/16 Internal Medicine Assmt/Plan - Assessment Assessment: cellulitis uncontrolled diabetes morbid obesity htn hiv positive
--- NOTE | 2016-10-17 18:41 | History & Physical ---
Dictating for Dr. Camilo Beaulieu. CHIEF COMPLAINT: Left foot cellulitis. HISTORY OF PRESENT ILLNESS: This is a 36-year-old -[place] female who is a direct admission from [facility]. According to the patient, during the half to about 4 days ago, she stated that she has noticed on her left pinky toe started to have an open wounds and her left leg started to swell up. The patient denied any fevers or any chills, but the patient states that in 07/06/2015, she had on her right foot, 2 of her toes were amputated due to severe osteomyelitis. In [facility], the patient had a venous Doppler done of her lower extremity. It was negative for any DVT. The patient also stated on her left pinky toe is noted with pustule drainage. Due to insurance purposes, the patient is now here at [facility]. PAST MEDICAL HISTORY: Diabetes, hypertension and HIV positive. PAST SURGICAL HISTORY: Two of her right toes amputation on 07/06/2015. ALLERGIES: Acetaminophen, aspirin, codeine, morphine and oxycodone. SOCIAL HISTORY: The patient denies any alcohol, any tobacco or any illicit drug usage. REVIEW OF SYSTEMS: GENERAL: Denies any fevers, any chills. CARDIOVASCULAR: Denies any chest pain. RESPIRATORY: Denies any shortness of breath. GASTROINTESTINAL: Denies any nausea, vomiting or abdominal pain. GENITOURINARY: Denies any dysuria. All other systems are reviewed by me and are negative. PHYSICAL EXAMINATION: GENERAL: The patient is morbidly obese, awake, alert, no apparently stress. VITAL SIGNS: Temperature 97.9, heart rate 78, blood pressure 153/97, respirations 18 and O2 98%. HEAD: Normocephalic and atraumatic. NECK: Supple. No mass. LUNGS: Clear bilaterally. HEART: Regular rhythm. ABDOMEN: Soft and nontender. SKIN: Left pinky toe noted with an open sore. LABORATORY RESULTS: Glucose level is 144. The rest of the laboratory data are currently attending. ASSESSMENT: Left toe cellulitis, uncontrolled diabetes, morbid obesity, type 2 diabetes, hypertension and HIV positive. PLAN: We will monitor the patient's CBC and CMP. We will place the patient on vancomycin per pharmacy to dose. We will also get bone scan to rule out any osteomyelitis. We will monitor the patient's glucose. Rippler to see the patient. We will continue to monitor the patient. JOB# [id number]
--- NOTE | 2016-10-17 21:55 | Admit Criteria Form ---
Admit Criteria Forms - Admit Criteria Diagnosis: CELLULITIS Clinical Indications for Admission to Inpatient Care (Place 'X' for any and all applicable criteria): Admission is indicated for ANY ONE of the following(1)(2)(3)(4)(5): [ ]I. Limb-threatening infection [X]II. High-risk comorbid condition as indicated by ANY ONE of the following: [X]a) Uncontrolled diabetes (eg, HbA1c greater than 10% (0.1)) [ ]b) Cirrhosis [ ]c) Neutropenia [ ]d) Asplenia [ ]e) Immunosuppression [ ]f) Symptomatic heart failure [ ]III. Failure of outpatient therapy as indicated by ALL of the following: [ ]a) Progression or no improvement after adequate trial (minimum of 48 hours, with longer period for stable lower extremity infection) [ ]b) Adequate antibiotic regimen as indicated by use of ANY ONE of the following: [ ]i) First-generation cephalosporin (e.g., cephalexin) [ ]ii) Antistaphylococcal penicillin (e.g., dicloxacillin) [ ]iii) Penicillin-allergic patient regimen (clindamycin, extended-spectrum fluoroquinolone, or doxycycline) [ ]iv) Resistant organism (eg, methicillin-resistant Staphylococcus aureus) regimen (6) [ ]c) Outpatient intravenous therapy regimen is not appropriate due to ANY ONE of the following. (7)(8)(9)(10): [ ]i) It was tried and was not successful (eg, progression of infection). [ ]ii) It is not available or cannot be arranged in a clinically appropriate time frame (e.g., the next day). [ ]iii) Clinical presentation (eg, acuity of infection, rapidity of progression, confirmed or suspected bacteremia) is judged to require ALL of the following: [ ]1) Immediate initiation of intravenous therapy ( eg, cannot wait for next day) [ ]2) Intensity of patient monitoring and observation (eg, vital sign measurement, checks for infection progression) that cannot be provided at other than inpatient level of care [ ]IV. Mental status changes [ ]V. Bacteremia [ ]. Hemodynamic instability [ ]VII. Suspected necrotizing soft tissue infection (e.g., gas in tissue)(11)( 12) [ ]VIII. Orbital infection (13)(14) [ ]IX. Associated surgical procedure (e.g., abscess drainage, debridement) not amenable to outpatient, emergency department, or observation care [ ]X. Cutaneous gangrene [ ]XI. High fever (temperature greater than 39.5 degrees C (103.1 degrees F) (oral)) not responsive to outpatient, emergency department, or observation care therapy [ ]XIII. Inpatient admission required rather than observation care (Also use Cellulitis: Observation Care as appropriate) because of ANY ONE of the following : [ ]a) Periorbital or perineal infection that is severe or worsening [ ]b) Severe pain requiring acute inpatient management [ ]c) IV fluid to replace significant ongoing (e.g., for over 24 hours) losses (greater than 3L/m2 per day) [ ]d) Compartment syndrome monitoring (17) [ ]e) Strict or protective (eg, laminar flow) isolation [ ]f) Urgent debridement or skin grafting [ ]g) Bone or joint debridement [ ]h) Immediate inpatient surgery [ ]i) Other condition, treatment or monitoring requiring inpatient admission Extended stay beyond goal length of stay may be needed for (1)(18): [ ]a) Necrotizing soft tissue infection or fasciitis [ ]b) Gram-negative infection [ ]c) Methicillin-resistant Staphylococcal aureus (MRSA) infection [ ]d) Peripheral venous insufficiency with cellulitis [ ]e) Extensive edema [ ]f) Sepsis or continued Hemodynamic instability [ ]g) Continued high fever or mental status change [ ]h) Bacteremia [ ]i) Active serious comorbid conditions ( eg, heart failure, renal insufficiency) The original [facility] [employer] content created by [employer] has been revised. The portions of the content which have been revised are identified through the use of italic text or in bold, and [facility] has neither reviewed nor approved the modified material. All other unmodified content is copyright [facility] Please see references footnoted in the original [facility] edition 2016 Admit Criteria Met?: Yes
[2016-10-18] MEDS: Ampicillin Sodium/Sulbactam 3 GM in Sodium Chloride 0.9% 100 ML IV SCH ×4 (00:29→17:49)
[2016-10-18] MEDS: HYDROmorphone 1 mg/mL 1mL Syr IVP PRN ×5 (03:08→20:58)
[2016-10-18] MEDS: INSULIN ASPART, RECOMBINANT 100 UNITS/ML SUBQ SCH ×4 (07:27→21:54)
[2016-10-18 07:31] LABS: PROTHROMBIN TIME (TEST) 8.9 SECONDS (9.5-11.5)
[2016-10-18 07:38] LABS: ALB/GLOB RATIO 0.6 (1.0-1.8); ANION GAP 8.9 (7.0-16.0); BILIRUBIN,TOTAL 0.3 mg/dL (0.3-1.0); CALCIUM SERUM 8.1 mg/dL (8.6-10.3); CARBON DIOXIDE 19.5 mEq/L (21.0-31.0); CREATININE - SERUM 2.5 mg/dL (0.6-1.2); MEAN CORPUSCULAR HEMOGLOBIN 24.3 pg (27.0-31.0); MEAN CORPUSCULAR HGB CONC 32.3 pg (28.0-36.0); MEAN PLATELET VOLUME 7.4 fl; POTASSIUM SERUM 4.4 mEq/L (3.5-5.1); RED CELL DISTRIBUTION WIDTH 16.3 % (11.5-20.0)
[2016-10-18 07:42] LABS: HEMATOCRIT 27.8 % (35.0-45.0); WHITE BLOOD COUNT 6.3 Th/cmm (4.8-10.8)
[2016-10-18 07:43] LABS: PLATELET COUNT 411 Th/cmm (150-400)
[2016-10-18 07:57] LABS: INR 0.86 (0.5-1.4)
[2016-10-18 08:16] LABS: TSH 2.17 uIU/ml (0.34-5.60)
[2016-10-18 08:17] LABS: ANISOCYTOSIS 1+; EOSINOPHIL 5 % (0-5); MICROCYTOSIS 2+; NEUTROPHILS 52 % (40-80); PLATELET ESTIMATE ADEQUATE (NORMAL); PLATELET MORPHOLOGY NORMAL (NORMAL); TOTAL CELLS COUNTED 100
[2016-10-18] MEDS: LAMIVUDINE PO SCH ×2 (08:45→09:00)
[2016-10-18] MEDS: ABACAVIR SULFATE PO SCH (08:45)
[2016-10-18] MEDS ORDERED: TIVICAY 50 MG PO SCH (09:00)
[2016-10-18] MEDS: ABACAVIR PO SCH (09:00)
[2016-10-18] MEDS: Insulin Detemir 100 units/mL 10mL Vial SUBQ SCH (09:00)
[2016-10-18] MEDS: TIVICAY 50 MG PO SCH (09:00)
[2016-10-18] MEDS: [UNRECOGNIZED DRUG - OTHER] PO SCH (09:00)
--- NOTE | 2016-10-18 12:03 | Internal Medicine Prog Note ---
Internal Medicine Subjective - Subjective Service Date: 10/18/16 (patient awake, alert, she states that she is allergic to vancomycin, she states that is the only antibiotic she is allergic to on top of levaquin. She is currently on unasyn. ) Patient seen and examined:: with staff Internal Medicine Objective - Results Result Diagrams: 10/18/16 06:45 10/18/16 06:45 Recent Labs: Laboratory Last Values WBC 6.3 Th/cmm (4.8-10.8) D 10/18/16 06:45 RBC 3.70 Mil/cmm (3.80-5.10) L 10/18/16 06:45 Hgb 9.0 gm/dL (11.7-15.5) L 10/18/16 06:45 Hct 27.8 % (35.0-45.0) L D 10/18/16 06:45 MCV 75.0 fl (81-100) L 10/18/16 06:45 MCH 24.3 pg (27.0-31.0) L 10/18/16 06:45 MCHC Differential 32.3 pg (28.0-36.0) 10/18/16 06:45 RDW 16.3 % (11.5-20.0) 10/18/16 06:45 Plt Count 411 Th/cmm (150-400) H D 10/18/16 06:45 MPV 7.4 fl 10/18/16 06:45 Neutrophils (Manual) 52 % (40-80) 10/18/16 06:45 Lymphocytes 42 % (20-50) 10/18/16 06:45 Monocytes 1 % (2-10) L 10/18/16 06:45 Eosinophils 5 % (0-5) 10/18/16 06:45 Platelet Estimate ADEQUATE (NORMAL) 10/18/16 06:45 Platelet Morphology NORMAL (NORMAL) 10/18/16 06:45 Anisocytosis 1+ 10/18/16 06:45 Microcytosis 2+ 10/18/16 06:45 RBC Morph Micro Appear ABNORMAL (NORMAL) 10/18/16 06:45 PT 8.9 SECONDS (9.5-11.5) L 10/18/16 06:45 INR 0.86 (0.5-1.4) 10/18/16 06:45 PTT (Actin FS) 24.8 SECONDS (26.0-38.0) L 10/18/16 06:45 Sodium 133 mEq/L (136-145) L 10/18/16 06:45 Potassium 4.4 mEq/L (3.5-5.1) 10/18/16 06:45 Chloride 109 mEq/L (98-107) H 10/18/16 06:45 Carbon Dioxide 19.5 mEq/L (21.0-31.0) L 10/18/16 06:45 Anion Gap 8.9 (7.0-16.0) 10/18/16 06:45 BUN 25 mg/dL (7-25) 10/18/16 06:45 Creatinine 2.5 mg/dL (0.6-1.2) H 10/18/16 06:45 Est GFR ( Amer) 28.0 ml/min (>90) 10/18/16 06:45 Est GFR (Non-Af Amer) 23.2 ml/min 10/18/16 06:45 BUN/Creatinine Ratio 10.0 10/18/16 06:45 Glucose 267 mg/dL (70-105) H 10/18/16 06:45 POC Glucose 225 MG/DL (70 - 105) H 10/18/16 10:50 Hemoglobin A1c % 12.9 % (4.0-6.0) H 10/18/16 06:45 Calcium 8.1 mg/dL (8.6-10.3) L 10/18/16 06:45 Total Bilirubin 0.3 mg/dL (0.3-1.0) 10/18/16 06:45 AST 14 U/L (13-39) 10/18/16 06:45 ALT 10 U/L (7-52) 10/18/16 06:45 Alkaline Phosphatase 93 U/L (34-104) 10/18/16 06:45 Ammonia 47 umol/L (16-53) 10/18/16 06:45 Total Protein 6.0 gm/dL (6.0-8.3) 10/18/16 06:45 Albumin 2.2 gm/dL (3.7-5.3) L 10/18/16 06:45 Globulin 3.8 gm/dL 10/18/16 06:45 Albumin/Globulin Ratio 0.6 (1.0-1.8) L 10/18/16 06:45 TSH 2.17 uIU/ml (0.34-5.60) 10/18/16 06:45 - Physical Exam Vitals and I&O: Vital Signs Temp 98.6 F 10/18/16 07:48 Pulse 89 10/18/16 08:39 Resp 18 10/18/16 08:00 BP 182/89 10/18/16 08:39 Pulse Ox 98 10/18/16 07:48 Intake & Output 10/17/16 10/18/16 10/18/16 18:59 06:59 18:59 Intake Total 1950 200 Balance 1950 200 Intake: Intake, IV Amount 1350 200 Ampicillin Sodium/ 100 200 Sulbactam 3 gm In Sodium Chloride 0.9% 100 ml @ 100 mls/hr IV Q6HR [facility] Rx #:[id number] Sodium Chloride 0.9% 1, 1000 000 ml @ 100 mls/hr IV . Q10H [facility] Rx#:[id number] Vancomycin HCl 1 gm In 250 Sodium Chloride 0.9% 250 ml @ 166.667 mls/hr IV Q24H [facility] Rx#:[id number] Oral 600 Other: # Voids 4 # Bowel Movements 1 Active Medications: Current Medications Al Hydrox/Mg Hydrox/Simethicone (Maalox) 30 ml PO Q6HR PRN PRN Reason: Constipation Stop: 12/16/16 07:40 Albuterol Sulfate (Albuterol 2.5mg/3ml Neb Ud) 2.5 mg IH Q2HR PRN PRN Reason: Shortness of Breath or Wheeze Stop: 12/16/16 07:40 Benazepril HCl (Lotensin) 10 mg PO DAILY [facility] Stop: 12/17/16 08:59 Guaifenesin (Robitussin) 200 mg PO Q4HR PRN PRN Reason: Cough or Congestion Stop: 12/16/16 07:40 Heparin Sodium (Porcine) (Heparin) 5,000 units SUBQ Q12HR [facility] Stop: 12/16/16 08:59 Last Admin: 10/18/16 08:39 Dose: 5,000 units Hydromorphone HCl (Dilaudid) 0.5 mg IVP Q4HR PRN PRN Reason: leg pain Stop: 12/16/16 08:13 Last Admin: 10/18/16 08:38 Dose: 0.5 mg Ampicillin Sodium/Sulbactam (Sodium 3 gm/ Sodium Chloride) 100 mls @ 100 mls/ hr IV Q6HR [facility] Stop: 12/16/16 11:59 Last Admin: 10/18/16 06:01 Dose: 100 mls/hr Vancomycin HCl 1 gm/ Sodium (Chloride) 250 mls @ 166.667 mls/hr IV Q24H [facility] Stop: 12/16/16 07:44 Last Admin: 10/18/16 08:38 Dose: 166.667 mls/hr Sodium Chloride (Nacl 0.45%) 1,000 mls @ 100 mls/hr IV .Q10H [facility] Stop: 12/17/16 09:00 Insulin Aspart (Novolog) 0 units SUBQ ACHS ESTEE PRN Reason: Protocol Stop: 12/17/16 07:29 Last Admin: 10/18/16 07:27 Dose: 2 units Insulin Detemir (Levemir Insulin) 48 units SUBQ DAILY [facility] Stop: 12/16/16 08:59 Last Admin: 10/18/16 09:00 Dose: Not Given Ipratropium [place] (Atrovent Neb 0.5mg/2.5ml) 0.5 mg IH Q2HR PRN PRN Reason: Shortness of Breath or Wheeze Stop: 12/16/16 07:40 Metoprolol Tartrate (Lopressor) 50 mg PO DAILY [facility] Stop: 12/16/16 08:59 Last Admin: 10/18/16 08:39 Dose: 50 mg Miscellaneous (Clinical Monitoring) 1 ea [facility] DAILY PRN PRN Reason: RENAL DOSING Stop: 12/17/16 08:02 Miscellaneous (Vancomycin Iv Per Pharmacy) 1 ea MC DAILY [facility] Stop: 12/18/16 08:59 Ondansetron HCl (Zofran) 4 mg IV Q8H PRN PRN Reason: Nausea / Vomiting Stop: 12/16/16 07:40 Last Admin: 10/18/16 06:05 Dose: 4 mg Patient Own Med- (Tivicay 50mg Tab) 1 PO DAILY [facility] Stop: 12/17/16 08:59 Patient Own Med- Epzicom (Abacavir 600mg/Lamivudine 300mg) 1 PO DAILY [facility] Stop: 12/17/16 09:59 Zolpidem Tartrate (Ambien) 10 mg PO HS PRN PRN Reason: Insomnia Stop: 12/16/16 07:40 General: alert HEENT: NC/AT Neck: Supple Lungs: CTAB Cardiovascular: RRR, Normal S1, Normal S2, without murmur Abdomen: soft non-tender, non-distended, positive bowel sound Neurological: no change - Procedures Procedures: Procedures Procedure Code Date TRANSFUSE NONAUT RED BLOOD CELLS IN PERIPH VEIN, PERC 41712K2 08/17/16 Internal Medicine Assmt/Plan - Assessment Assessment: cellulitis uncontrolled diabetes morbid obesity htn hiv positive - Plan Plan: awaiting for bone scan results dc vancomycin will add prn benadryl f/u labs in am continue current plan of care
[2016-10-18] MEDS: Sodium Chloride 0.45% 1,000 ML IV SCH (12:32)
--- NOTE | 2016-10-18 13:50 | Diagnostic Imaging Report ---
Nuclear medicine 3 phase bone scan History: Osteomyelitis Comparison: None Technique/procedure: 22.3 mCi of technetium 99 MDP was administered intravenously and flow, blood pole, and delayed images of the bilateral lower extremities were obtained. Flow images demonstrate increased uptake throughout the left lower extremity. There is also faint focal uptake seen within the left fifth phalangeal region. Blood flow images also demonstrate increased uptake throughout the left lower extremity with multifocal increased uptake seen along the left fifth phalangeal region. Delayed images also demonstrate increased uptake seen along the left fifth phalangeal region. IMPRESSION: Increased uptake throughout the left lower extremity. Findings may be due to cellulitis. There is more focalized uptake seen along the left fifth phalangeal regions. Osteomyelitis in this region should be considered. Please correlate with previous exams and clinical history. Consider further assessment with MRI examination.
[2016-10-19] MEDS: Ampicillin Sodium/Sulbactam 3 GM in Sodium Chloride 0.9% 100 ML IV SCH ×3 (01:50→12:33)
[2016-10-19] MEDS: Sodium Chloride 0.45% 1,000 ML IV SCH (02:01)
[2016-10-19] MEDS: HYDROmorphone 1 mg/mL 1mL Syr IVP PRN ×5 (03:14→22:26)
[2016-10-19] MEDS: INSULIN ASPART, RECOMBINANT 100 UNITS/ML SUBQ SCH ×4 (06:44→21:45)
[2016-10-19 07:23] LABS: MEAN CELL VOLUME 75.1 fl (81-100); MEAN CORPUSCULAR HEMOGLOBIN 24.6 pg (27.0-31.0); MEAN CORPUSCULAR HGB CONC 32.8 pg (28.0-36.0); MEAN PLATELET VOLUME 7.5 fl; PLATELET COUNT 431 Th/cmm (150-400); RED BLOOD COUNT 4.08 Mil/cmm (3.80-5.10); RED CELL DISTRIBUTION WIDTH 16.3 % (11.5-20.0); WHITE BLOOD COUNT 6.9 Th/cmm (4.8-10.8)
[2016-10-19 07:39] LABS: ANION GAP 14.6 (7.0-16.0); CALCIUM SERUM 8.7 mg/dL (8.6-10.3); CREATININE - SERUM 2.7 mg/dL (0.6-1.2); POTASSIUM SERUM 4.6 mEq/L (3.5-5.1); VANCOMYCIN RANDOM 14.7 ug/mL (5.0-40.0)
[2016-10-19 08:13] LABS: HEMATOCRIT 30.6 % (35.0-45.0)
[2016-10-19] MEDS: ABACAVIR PO SCH (08:44)
[2016-10-19] MEDS: [UNRECOGNIZED DRUG - OTHER] PO SCH (08:44)
[2016-10-19] MEDS: LAMIVUDINE PO SCH (08:44)
[2016-10-19] MEDS: TIVICAY 50 MG PO SCH (08:44)
[2016-10-19] MEDS: Insulin Detemir 100 units/mL 10mL Vial SUBQ SCH (08:48)
[2016-10-19 09:41] LABS: ANISOCYTOSIS 1+; BAND NEUTROPHILE 1 % (0-10); EOSINOPHIL 3 % (0-5); MICROCYTOSIS 2+; NEUTROPHILS 48 % (40-80); PLATELET ESTIMATE ADEQUATE (NORMAL); PLATELET MORPHOLOGY NORMAL (NORMAL); TOTAL CELLS COUNTED 100
--- NOTE | 2016-10-19 10:02 | Diagnostic Imaging Report ---
Left foot (3 views) HISTORY: Pain, osteomyelitis No focal lesions are seen. Specifically, no focal abnormality in the region of the fifth metatarsal and area of the reported focus of increased activity noted on the radionuclide bone scan of October 18, 2016. No plain radiographic evidence of osteomyelitis. No abnormal calcifications Small spur formation noted off the plantar aspect of the posterior calcaneus. IMPRESSION: 1. No acute abnormalities. No abnormal radiographic correlate for a focus of increased activity noted on the earlier radionuclide bone scan of 10/18/2016. Activity is probably associated with the soft tissues. No definite evidence of osteomyelitis. If necessary, an MRI exam would provide additional detail and assessment.
--- NOTE | 2016-10-19 12:20 | Internal Medicine Prog Note ---
Internal Medicine Subjective - Subjective Service Date: 10/19/16 Patient seen and examined:: with staff Patient is:: awake Per staff patient is:: no adverse event Internal Medicine Objective - Results Result Diagrams: 10/19/16 06:40 10/19/16 06:40 Recent Labs: Laboratory Last Values WBC 6.9 Th/cmm (4.8-10.8) 10/19/16 06:40 RBC 4.08 Mil/cmm (3.80-5.10) 10/19/16 06:40 Hgb 10.0 gm/dL (11.7-15.5) L 10/19/16 06:40 Hct 30.6 % (35.0-45.0) L D 10/19/16 06:40 MCV 75.1 fl (81-100) L 10/19/16 06:40 MCH 24.6 pg (27.0-31.0) L 10/19/16 06:40 MCHC Differential 32.8 pg (28.0-36.0) 10/19/16 06:40 RDW 16.3 % (11.5-20.0) 10/19/16 06:40 Plt Count 431 Th/cmm (150-400) H 10/19/16 06:40 MPV 7.5 fl 10/19/16 06:40 Band Neutrophils % 1 % (0-10) 10/19/16 06:40 Neutrophils (Manual) 48 % (40-80) 10/19/16 06:40 Lymphocytes 42 % (20-50) 10/19/16 06:40 Monocytes 6 % (2-10) 10/19/16 06:40 Eosinophils 3 % (0-5) 10/19/16 06:40 Platelet Estimate ADEQUATE (NORMAL) 10/19/16 06:40 Platelet Morphology NORMAL (NORMAL) 10/19/16 06:40 Anisocytosis 1+ 10/19/16 06:40 Microcytosis 2+ 10/19/16 06:40 RBC Morph Micro Appear ABNORMAL (NORMAL) 10/19/16 06:40 ESR 95 mm/hr (0-30) H 10/19/16 06:40 PT 8.9 SECONDS (9.5-11.5) L 10/18/16 06:45 INR 0.86 (0.5-1.4) 10/18/16 06:45 PTT (Actin FS) 24.8 SECONDS (26.0-38.0) L 10/18/16 06:45 Sodium 132 mEq/L (136-145) L 10/19/16 06:40 Potassium 4.6 mEq/L (3.5-5.1) 10/19/16 06:40 Chloride 106 mEq/L (98-107) 10/19/16 06:40 Carbon Dioxide 16.0 mEq/L (21.0-31.0) L 10/19/16 06:40 Anion Gap 14.6 (7.0-16.0) 10/19/16 06:40 BUN 27 mg/dL (7-25) H 10/19/16 06:40 Creatinine 2.7 mg/dL (0.6-1.2) H 10/19/16 06:40 Est GFR ( Amer) 25.6 ml/min (>90) 10/19/16 06:40 Est GFR (Non-Af Amer) 21.2 ml/min 10/19/16 06:40 BUN/Creatinine Ratio 10.0 10/19/16 06:40 Glucose 320 mg/dL (70-105) H 10/19/16 06:40 POC Glucose 96 MG/DL (70 - 105) 10/19/16 11:22 Hemoglobin A1c % 12.9 % (4.0-6.0) H 10/18/16 06:45 Calcium 8.7 mg/dL (8.6-10.3) 10/19/16 06:40 Total Bilirubin 0.3 mg/dL (0.3-1.0) 10/18/16 06:45 AST 14 U/L (13-39) 10/18/16 06:45 ALT 10 U/L (7-52) 10/18/16 06:45 Alkaline Phosphatase 93 U/L (34-104) 10/18/16 06:45 Ammonia 47 umol/L (16-53) 10/18/16 06:45 Total Protein 6.0 gm/dL (6.0-8.3) 10/18/16 06:45 Albumin 2.2 gm/dL (3.7-5.3) L 10/18/16 06:45 Globulin 3.8 gm/dL 10/18/16 06:45 Albumin/Globulin Ratio 0.6 (1.0-1.8) L 10/18/16 06:45 TSH 2.17 uIU/ml (0.34-5.60) 10/18/16 06:45 Random Vancomycin 14.7 ug/mL (5.0-40.0) 10/19/16 06:40 - Physical Exam Vitals and I&O: Vital Signs Temp 98.0 F 10/19/16 12:00 Pulse 79 10/19/16 12:00 Resp 18 10/19/16 12:00 BP 178/103 10/19/16 12:00 Pulse Ox 98 10/19/16 12:00 Intake & Output 10/18/16 10/19/16 10/19/16 18:59 06:59 18:59 Intake Total 1100 1250 Balance 1100 1250 Weight (lbs) 203 lb 1.6 oz Intake: Intake, IV Amount 200 1000 Ampicillin Sodium/ 200 Sulbactam 3 gm In Sodium Chloride 0.9% 100 ml @ 100 mls/hr IV Q6HR [facility] Rx #:[id number] Sodium Chloride 0.45% 1, 1000 000 ml @ 100 mls/hr IV . Q10H [facility] Rx#:[id number] Oral 900 250 Other: # Voids 4 3 Stool Characteristics Soft Formed Active Medications: Current Medications Al Hydrox/Mg Hydrox/Simethicone (Maalox) 30 ml PO Q6HR PRN PRN Reason: Constipation Stop: 12/16/16 07:40 Albuterol Sulfate (Albuterol 2.5mg/3ml Neb Ud) 2.5 mg IH Q2HR PRN PRN Reason: Shortness of Breath or Wheeze Stop: 12/16/16 07:40 Benazepril HCl (Lotensin) 10 mg PO DAILY [facility] Stop: 12/17/16 08:59 Last Admin: 10/19/16 08:47 Dose: 10 mg Clonidine HCl (Catapres) 0.1 mg PO Q6HR PRN PRN Reason: SBP GREATER THAN 160 Stop: 12/18/16 11:55 Guaifenesin (Robitussin) 200 mg PO Q4HR PRN PRN Reason: Cough or Congestion Stop: 12/16/16 07:40 Heparin Sodium (Porcine) (Heparin) 5,000 units SUBQ Q12HR [facility] Stop: 12/16/16 08:59 Last Admin: 10/19/16 08:47 Dose: 5,000 units Hydromorphone HCl (Dilaudid) 0.5 mg IVP Q4HR PRN PRN Reason: leg pain Stop: 12/16/16 08:13 Last Admin: 10/19/16 08:47 Dose: 0.5 mg Ampicillin Sodium/Sulbactam (Sodium 3 gm/ Sodium Chloride) 100 mls @ 100 mls/ hr IV Q6HR [facility] Stop: 12/16/16 11:59 Last Admin: 10/19/16 06:39 Dose: Not Given Sodium Chloride (Nacl 0.45%) 1,000 mls @ 100 mls/hr IV .Q10H [facility] Stop: 12/17/16 09:00 Last Admin: 10/19/16 02:01 Dose: 100 mls/hr Insulin Aspart (Novolog) 0 units SUBQ ACHS ESTEE PRN Reason: Protocol Stop: 12/17/16 07:29 Last Admin: 10/19/16 06:44 Dose: 6 units Insulin Detemir (Levemir Insulin) 60 units SUBQ DAILY [facility] Stop: 12/16/16 08:59 Last Admin: 10/19/16 08:48 Dose: 60 unit Ipratropium Cocoa (Atrovent Neb 0.5mg/2.5ml) 0.5 mg IH Q2HR PRN PRN Reason: Shortness of Breath or Wheeze Stop: 12/16/16 07:40 Metoprolol Tartrate (Lopressor) 50 mg PO DAILY [facility] Stop: 12/16/16 08:59 Last Admin: 10/19/16 08:44 Dose: 50 mg Miscellaneous (Clinical Monitoring) 1 ea MC DAILY PRN PRN Reason: RENAL DOSING Stop: 12/17/16 08:02 Ondansetron HCl (Zofran) 4 mg IV Q8H PRN PRN Reason: Nausea / Vomiting Stop: 12/16/16 07:40 Last Admin: 10/19/16 08:57 Dose: 4 mg Patient Own Med- (Tivicay 50mg Tab) 1 PO DAILY [facility] Stop: 12/17/16 08:59 Last Admin: 10/19/16 08:44 Dose: 1 Patient Own Med- Epzicom (Abacavir 600mg/Lamivudine 300mg) 1 PO DAILY [facility] Stop: 12/17/16 09:59 Last Admin: 10/19/16 08:44 Dose: 1 Zolpidem Tartrate (Ambien) 10 mg PO HS PRN PRN Reason: Insomnia Stop: 12/16/16 07:40 General: alert HEENT: NC/AT, PERRLA Neck: Supple Lungs: CTAB Cardiovascular: RRR, Normal S1, Normal S2, without murmur Abdomen: soft non-tender, non-distended, positive bowel sound Extremities: clear Neurological: no change - Procedures Procedures: Procedures Procedure Code Date TRANSFUSE NONAUT RED BLOOD CELLS IN PERIPH VEIN, PERC 18749T7 08/17/16 Internal Medicine Assmt/Plan - Assessment Assessment: cellulitis uncontrolled diabetes morbid obesity htn hiv positive - Plan Plan: awaiting for xray of the foot f/u labs in am continue current plan of care Nutritional Asmnt/Malnutr-PDOC - Dietary Evaluation Malnutrition Findings (Please click <Entered> for more info): Nutritional Asmnt/Malnutrition Start: 10/18/16 15: 34 Text: Status: Complete Freq: Document 10/18/16 15:34 GSUN (Rec: 10/18/16 15:38 [email or web address]) Nutritional Asmnt/Malnutrition Patient General Information Nutritional Screening High Risk Screening Diagnosis Left toe cellulitis, uncontrolled DM, HTN, HIV positive Pertinent Medical Hx/Surgical Hx DM, HTN, HIV positive, 2 right toes amputated 06/2015 Subjective Information 36 year old female. Pt was previously admitted to this hospital on 08/17/16, RD provided edu on DM. Pt recently attended 4 day DM edu class in [place], [place]. Spoke to pt, pt was able to identify CHO and give examples of healthy snacks, however from pt's menus, pt has been trying to completely cut out CHO. RD provided DM edu, emphasized on consistent CHO. All questions answered to pt's satisfaction. Pt reported UBW 188-197lb, weight gain and swollen leg. Current Diet Order/ Nutrition Support [id number] Patient / S.O Can Pertinent Medications Maalox, Dilaudid, Novolog, Levemir Pertinent Labs 10/18: glucose 167H, A1c 12.9, creatinine 267H Nutritional Hx/Data Height 5 ft 9 in Height (Calculated Centimeters) 175.3 Current Weight (lbs) 203 lb 1.6 oz Weight (Calculated Kilograms) 92.1 Weight (Calculated Grams) 46485.6 [place] Body Weight 145 Recent Weight Change Yes Weight Status Overweight GI Symptoms Food Allergies No Cultural/Ethnic/Anabaptism Belief Pt has cut out snacking unhealthy foods, stated 4 day DM edu has helped her a lot. Pt enjoys a lot of meats and salad. Usual diet at home DM diet. Skin Integrity/Comment: Clyde 20. Left toe cellulitis Estimated Nutritional Goals Calories/Kcals/Kg IBW 145lb/65.9kg Kcals Calculated 1648-1977kcal (25-30kcal/kg) Protein g/kg: IBW Protein Calculated 53g (0.8g/kg) Fluid: ml 1648-1977ml (1ml/kcal) Nutritional Problem 1. Problem Problem Food, nutrition, and nutrition -related knowledge deficit related to Etiology DM, pt trying to cut out all carbohydrates in diet Signs/Symptoms: uncontrolled DM Intervention/Recommendation Comments 1. Continue with [address] 2. Provided edu on DM. Pt recently attended 4 day DM edu class. Pt was able to identify carbohydrate and list healthy DM snacks. However, pt has been avoiding carb. RD emphasized on consistant carb. Re-cap on topic as needed. 3. FNS to honor pt's food preferences. Expected Outcomes/Goals Expected Outcomes/Goals 1. PO intake to meet at least 75% of estimated nutritional needs.
[2016-10-19] MEDS ORDERED: Sodium Chloride 0.45% 1,000 ML IV SCH (12:45)
[2016-10-19] MEDS ORDERED: Levofloxacin 500mg/100mL 500 MG/100 ML BAG IV SCH (13:00)
[2016-10-19 14:19] LABS: FOLIC ACID 9.6 ng/mL (>3.0)
[2016-10-19 17:54] LABS: URINE COLOR STRAW
[2016-10-19 17:55] LABS: URINE BILIRUBIN NEGATIVE (NEGATIVE); URINE BLOOD LARGE (NEGATIVE); URINE GLUCOSE (UA) 100 mg/dL (NEGATIVE); URINE KETONE NEGATIVE (NEGATIVE); URINE PH 6.5; URINE PROTEIN >300 mg/dL (NEGATIVE); URINE UROBILINOGEN 0.2 E.U./dL (0.2 - 1.0)
[2016-10-19 17:57] LABS: URINE BACTERIA NONE SEEN /hpf (NONE SEEN); URINE EPITHELIAL CELLS MANY /lpf (FEW); URINE RBC 25-50 /hpf (0-5); URINE WBC NONE SEEN /hpf (0-5)
[2016-10-19 18:28] LABS: CD4 ABSOLUTE 344; CD4 PERCENT 12.3
[2016-10-19 18:29] LABS: % CD 8 POS LYMPSH 73.4; CD4/CD8 RATIO 0.17; CD8 ABSOLUTE COUNT 2055
[2016-10-19 18:30] LABS: LYMPHS (ABSOLUTE) 2.8
[2016-10-20] MEDS: HYDROmorphone 1 mg/mL 1mL Syr IVP PRN ×2 (04:07→08:41)
[2016-10-20 06:28] LABS: HEMATOCRIT 26.6 % (35.0-45.0); HEMOGLOBIN 8.7 gm/dL (11.7-15.5); MEAN CELL VOLUME 74.3 fl (81-100); MEAN CORPUSCULAR HEMOGLOBIN 24.2 pg (27.0-31.0); MEAN CORPUSCULAR HGB CONC 32.6 pg (28.0-36.0); MEAN PLATELET VOLUME 6.6 fl; PLATELET COUNT 425 Th/cmm (150-400); RED BLOOD COUNT 3.58 Mil/cmm (3.80-5.10); RED CELL DISTRIBUTION WIDTH 15.8 % (11.5-20.0); WHITE BLOOD COUNT 5.9 Th/cmm (4.8-10.8)
[2016-10-20 06:47] LABS: ANION GAP 8.2 (7.0-16.0); BUN/CREATININE RATIO 9.3; CALCIUM SERUM 8.5 mg/dL (8.6-10.3); CARBON DIOXIDE 19.2 mEq/L (21.0-31.0); CREATININE - SERUM 2.9 mg/dL (0.6-1.2); POTASSIUM SERUM 4.4 mEq/L (3.5-5.1)
[2016-10-20] MEDS: INSULIN ASPART, RECOMBINANT 100 UNITS/ML SUBQ SCH ×2 (07:53→11:15)
[2016-10-20 08:28] LABS: ANISOCYTOSIS 1+; EOSINOPHIL 2 % (0-5); MICROCYTOSIS 2+; NEUTROPHILS 46 % (40-80); PLATELET ESTIMATE ADEQUATE (NORMAL); PLATELET MORPHOLOGY NORMAL (NORMAL); TOTAL CELLS COUNTED 100
[2016-10-20] MEDS: Insulin Detemir 100 units/mL 10mL Vial SUBQ SCH (08:34)
[2016-10-20] MEDS: LAMIVUDINE PO SCH (08:44)
[2016-10-20] MEDS: ABACAVIR PO SCH (08:44)
[2016-10-20] MEDS: [UNRECOGNIZED DRUG - OTHER] PO SCH (08:44)
[2016-10-20] MEDS: TIVICAY 50 MG PO SCH (08:44)
[2016-10-20] MEDS ORDERED: Levofloxacin 250mg/50mL 250 MG/50 ML BAG IV SCH (09:00)
--- NOTE | 2016-10-20 10:59 | Consultation ---
REASON FOR CONSULTATION: Psych eval. HISTORY OF PRESENT ILLNESS: A 36-year-old -[place] female, direct admission from [facility]. The patient noticed her left 5th digit started to have an open wound and her left leg started to swell up. The patient denies any fever or chills. The patient has a history of osteomyelitis, toe amputation, digit amputation. On [id number], the patient oriented to name, she knows she is in the hospital, she tells me exactly why she is in the hospital. She knows the month, the year, the day of the week, and where she is. She denies overt depression or anxiety; however, she is tearful when talking about her who was killed in [place] a few years ago and she states this is a sensitive topic for her. She expresses frustration over his loss and frustration that she has not been able to find a work due to her health issues. The patient notes that she does have some difficulty sleeping at night due to worries about work. Fair appetite. PAST PSYCHIATRIC HISTORY: Denies any suicide history. No psych admissions. No diagnoses in the past. PAST SURGICAL HISTORY: As noted. PAST MEDICAL HISTORY: Diabetes, hypertension, HIV positive. ALLERGIES: ACETOMINOHEN, ASPIRIN, CODEINE, MORPHINE, OXYCODONE. SOCIAL HISTORY: The patient was born in [facility], living currently in [place]. The patient currently . killed in [place], deployed in 2006. She has one 11-year-old daughter. She notes that her own mom is living with her and helped to take care of her daughter. 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 No drugs. No alcohol. No tobacco. Living with family in [place]. MENTAL STATUS EXAMINATION: Stated age. Fair eye contact. Speech within normal limits. Psychomotorically normal, somewhat guarded on exam initially. Her mood "okay." Affect "fine," but she does tear up when talking about her late . Thought processes were linear. No SI, no intent, no plan. No Hi, no intent, no plan. No auditory hallucinations. No visual hallucinations. No paranoia. Concentration was sustained. Insight and judgment reasonable x 2. PROVISIONAL DIAGNOSES: Adjustment disorder with depressed mood and anxiety, rule out major depression; also anxiety, unspecified; under medical, as noted including human immunodeficiency virus positive. RECOMMENDATIONS AND PLAN: Had no acute psychiatric interventions at this time. The patient may benefit from outpatient therapy to deal with and process the loss of her , which she is still quite upset and tearful about. We will continue to monitor; however, and followup, to be discussed with staff in detail. [facility]# [id number]
--- NOTE | 2016-10-20 16:02 | Internal Medicine Prog Note ---
Internal Medicine Subjective - Subjective Service Date: 10/20/16 ([id number]) Internal Medicine Objective - Results Result Diagrams: 10/20/16 06:20 10/20/16 06:20 Recent Labs: Laboratory Last Values WBC 5.9 Th/cmm (4.8-10.8) 10/20/16 06:20 RBC 3.58 Mil/cmm (3.80-5.10) L 10/20/16 06:20 Hgb 8.7 gm/dL (11.7-15.5) L 10/20/16 06:20 Hct 26.6 % (35.0-45.0) L D 10/20/16 06:20 MCV 74.3 fl (81-100) L 10/20/16 06:20 MCH 24.2 pg (27.0-31.0) L 10/20/16 06:20 MCHC Differential 32.6 pg (28.0-36.0) 10/20/16 06:20 RDW 15.8 % (11.5-20.0) 10/20/16 06:20 Plt Count 425 Th/cmm (150-400) H 10/20/16 06:20 MPV 6.6 fl 10/20/16 06:20 Absolute Lymphs (auto) 2.8 10/18/16 06:45 Band Neutrophils % 1 % (0-10) 10/19/16 06:40 Neutrophils (Manual) 46 % (40-80) 10/20/16 06:20 Lymphocytes 45 % (20-50) 10/20/16 06:20 Monocytes 6 % (2-10) 10/20/16 06:20 Eosinophils 2 % (0-5) 10/20/16 06:20 Nucleated RBCs 0.0 10/18/16 06:45 Atypical Lymphocytes 1 % 10/20/16 06:20 Platelet Estimate ADEQUATE (NORMAL) 10/20/16 06:20 Platelet Morphology NORMAL (NORMAL) 10/20/16 06:20 Anisocytosis 1+ 10/20/16 06:20 Microcytosis 2+ 10/20/16 06:20 RBC Morph Micro Appear ABNORMAL (NORMAL) 10/20/16 06:20 ESR 95 mm/hr (0-30) H 10/19/16 06:40 PT 8.9 SECONDS (9.5-11.5) L 10/18/16 06:45 INR 0.86 (0.5-1.4) 10/18/16 06:45 PTT (Actin FS) 24.8 SECONDS (26.0-38.0) L 10/18/16 06:45 Sodium 132 mEq/L (136-145) L 10/20/16 06:20 Potassium 4.4 mEq/L (3.5-5.1) 10/20/16 06:20 Chloride 109 mEq/L (98-107) H 10/20/16 06:20 Carbon Dioxide 19.2 mEq/L (21.0-31.0) L 10/20/16 06:20 Anion Gap 8.2 (7.0-16.0) 10/20/16 06:20 BUN 27 mg/dL (7-25) H 10/20/16 06:20 Creatinine 2.9 mg/dL (0.6-1.2) H 10/20/16 06:20 Est GFR ( Amer) 23.6 ml/min (>90) 10/20/16 06:20 Est GFR (Non-Af Amer) 19.5 ml/min 10/20/16 06:20 BUN/Creatinine Ratio 9.3 10/20/16 06:20 Glucose 168 mg/dL (70-105) H 10/20/16 06:20 POC Glucose 187 MG/DL (70 - 105) H 10/20/16 11:14 Hemoglobin A1c % 12.9 % (4.0-6.0) H 10/18/16 06:45 Calcium 8.5 mg/dL (8.6-10.3) L 10/20/16 06:20 Total Bilirubin 0.3 mg/dL (0.3-1.0) 10/18/16 06:45 AST 14 U/L (13-39) 10/18/16 06:45 ALT 10 U/L (7-52) 10/18/16 06:45 Alkaline Phosphatase 93 U/L (34-104) 10/18/16 06:45 Ammonia 47 umol/L (16-53) 10/18/16 06:45 C-Reactive Protein 0.3 mg/dL (0.0-0.9) 10/19/16 06:40 Total Protein 6.0 gm/dL (6.0-8.3) 10/18/16 06:45 Albumin 2.2 gm/dL (3.7-5.3) L 10/18/16 06:45 Globulin 3.8 gm/dL 10/18/16 06:45 Albumin/Globulin Ratio 0.6 (1.0-1.8) L 10/18/16 06:45 Vitamin B12 378 pg/mL (211-946) 10/18/16 06:45 Folic Acid 9.6 ng/mL (>3.0) 10/18/16 06:45 TSH 2.17 uIU/ml (0.34-5.60) 10/18/16 06:45 Urine Source CLEAN C 10/19/16 16:40 Urine Color STRAW 10/19/16 16:40 Urine Clarity HAZY (CLEAR) 10/19/16 16:40 Urine pH 6.5 10/19/16 16:40 Ur Specific [place] 1.020 (1.005-1.030) 10/19/16 16:40 Urine Protein >300 mg/dL (NEGATIVE) H 10/19/16 16:40 Urine Glucose (UA) 100 mg/dL (NEGATIVE) H 10/19/16 16:40 Urine Ketones NEGATIVE mg/dL (NEGATIVE) 10/19/16 16:40 Urine Blood LARGE (NEGATIVE) H 10/19/16 16:40 Urine Nitrate NEGATIVE (NEGATIVE) 10/19/16 16:40 Urine Bilirubin NEGATIVE (NEGATIVE) 10/19/16 16:40 Urine Urobilinogen 0.2 E.U./dL (0.2 - 1.0) 10/19/16 16:40 Ur Leukocyte Esterase NEGATIVE (NEGATIVE) 10/19/16 16:40 Urine RBC 25-50 /hpf (0-5) H 10/19/16 16:40 Urine WBC NONE SEEN /hpf (0-5) 10/19/16 16:40 Ur Epithelial Cells MANY /lpf (FEW) 10/19/16 16:40 Urine Bacteria NONE SEEN /hpf (NONE SEEN) 10/19/16 16:40 Random Vancomycin 14.7 ug/mL (5.0-40.0) 10/19/16 06:40 % CD4 Cells 12.3 10/18/16 06:45 Absolute CD4 Count 344 10/18/16 06:45 T-Lymph CD4/CD8 Ratio 0.17 10/18/16 06:45 % CD8 Cells 73.4 10/18/16 06:45 Absolute CD8 Count 2055 10/18/16 06:45 - Physical Exam Vitals and I&O: Vital Signs Temp 97.7 F 10/20/16 12:00 Pulse 77 10/20/16 12:00 Resp 20 10/20/16 12:00 BP 166/113 10/20/16 12:00 Pulse Ox 100 10/20/16 12:00 Intake & Output 10/19/16 10/20/16 10/20/16 18:59 06:59 18:59 Intake Total 100 Balance 100 Intake: Oral 100 Other: # Voids 2 Stool Characteristics Soft Soft Soft Formed Formed Formed Active Medications: Current Medications Benazepril HCl (Lotensin) 10 mg PO BID [facility] Stop: 12/18/16 16:59 Last Admin: 10/20/16 08:30 Dose: 10 mg Clonidine HCl (Catapres) 0.1 mg PO Q6HR PRN PRN Reason: SBP GREATER THAN 160 Stop: 12/18/16 11:55 Last Admin: 10/20/16 11:12 Dose: 0.1 mg Insulin Detemir (Levemir Insulin) 60 units SUBQ DAILY [facility] Stop: 12/16/16 08:59 Last Admin: 10/20/16 08:34 Dose: 60 unit Metoprolol Tartrate (Lopressor) 50 mg PO TID [facility] Stop: 12/19/16 20:59 Metronidazole (Flagyl) 250 mg PO TID [facility] Stop: 12/18/16 13:59 Last Admin: 10/20/16 13:43 Dose: 250 mg Patient Own Med- (Tivicay 50mg Tab) 1 PO DAILY [facility] Stop: 12/17/16 08:59 Last Admin: 10/20/16 08:44 Dose: 1 Patient Own Med- Epzicom (Abacavir 600mg/Lamivudine 300mg) 1 PO DAILY [facility] Stop: 12/17/16 09:59 Last Admin: 10/20/16 08:44 Dose: 1 Zolpidem Tartrate (Ambien) 10 mg PO HS PRN PRN Reason: Insomnia Stop: 12/16/16 07:40 - Procedures Procedures: Procedures Procedure Code Date TRANSFUSE NONAUT RED BLOOD CELLS IN PERIPH VEIN, PERC 88650J2 08/17/16 Internal Medicine Assmt/Plan - Assessment Assessment: cellulitis uncontrolled diabetes morbid obesity htn hiv positive Nutritional Asmnt/Malnutr-PDOC - Dietary Evaluation Malnutrition Findings (Please click <Entered> for more info): Nutritional Asmnt/Malnutrition Start: 10/18/16 15: 34 Text: Status: Complete Freq: Document 10/18/16 15:34 GSELIAS (Rec: 10/18/16 15:38 [email or web address]) Nutritional Asmnt/Malnutrition Patient General Information Nutritional Screening High Risk Screening Diagnosis Left toe cellulitis, uncontrolled DM, HTN, HIV positive Pertinent Medical Hx/Surgical Hx DM, HTN, HIV positive, 2 right toes amputated 06/2015 Subjective Information 36 year old female. Pt was previously admitted to this hospital on 08/17/16, RD provided edu on DM. Pt recently attended 4 day DM edu class in [place], [place]. Spoke to pt, pt was able to identify CHO and give examples of healthy snacks, however from pt's menus, pt has been trying to completely cut out CHO. RD provided DM edu, emphasized on consistent CHO. All questions answered to pt's satisfaction. Pt reported UBW 188-197lb, weight gain and swollen leg. Current Diet Order/ Nutrition Support [id number] Patient / S.O Can Pertinent Medications Maalox, Dilaudid, Novolog, Levemir Pertinent Labs 10/18: glucose 167H, A1c 12.9, creatinine 267H Nutritional Hx/Data Height 5 ft 9 in Height (Calculated Centimeters) 175.3 Current Weight (lbs) 203 lb 1.6 oz Weight (Calculated Kilograms) 92.1 Weight (Calculated Grams) 81189.6 [place] Body Weight 145 Recent Weight Change Yes Weight Status Overweight GI Symptoms Food Allergies No Cultural/Ethnic/Alevism Belief Pt has cut out snacking unhealthy foods, stated 4 day DM edu has helped her a lot. Pt enjoys a lot of meats and salad. Usual diet at home DM diet. Skin Integrity/Comment: Clyde 20. Left toe cellulitis Estimated Nutritional Goals Calories/Kcals/Kg IBW 145lb/65.9kg Kcals Calculated 1648-1977kcal (25-30kcal/kg) Protein g/kg: IBW Protein Calculated 53g (0.8g/kg) Fluid: ml 1648-1977ml (1ml/kcal) Nutritional Problem 1. Problem Problem Food, nutrition, and nutrition -related knowledge deficit related to Etiology DM, pt trying to cut out all carbohydrates in diet Signs/Symptoms: uncontrolled DM Intervention/Recommendation Comments 1. Continue with [address] 2. Provided edu on DM. Pt recently attended 4 day DM edu class. Pt was able to identify carbohydrate and list healthy DM snacks. However, pt has been avoiding carb. RD emphasized on consistant carb. Re-cap on topic as needed. 3. FNS to honor pt's food preferences. Expected Outcomes/Goals Expected Outcomes/Goals 1. PO intake to meet at least 75% of estimated nutritional needs.
--- NOTE | 2016-10-20 18:25 | Discharge Summary ---
FINAL DIAGNOSES: Cellulitis, uncontrolled diabetes, morbid obesity, hypertension and HIV positive. HISTORY OF PRESENT ILLNESS: This is a 36-year-old -[place] female who is a direct admission from [facility]. According to the patient during 3.5 to 4 days ago, she stated that she noticed on her left pinkie toe started to have an open wound. Her left leg started to swell up. The patient denied any fevers or any chills, but the patient states that on 07/06/2015, she had her right foot 2 of her toes were amputated due to severe osteomyelitis in [facility]. The patient had venous Dopplers done of her lower extremity, was negative for any DVT. The patient also stated her left pinkie toe has noticed pustular drainage. Due to insurance purposes, the patient is now here at [facility]. PHYSICAL EXAMINATION: GENERAL: The patient is well developed, well nourished, in no acute distress. VITAL SIGNS: Stable. HEENT: Head is normocephalic and atraumatic. NECK: Supple. No mass. LUNGS: Clear bilaterally. CARDIOVASCULAR: Regular rhythm. ABDOMEN: Soft, nontender and nondistended. HOSPITAL COURSE: During the hospital stay, the patient was admitted to the med/surg unit. The patient had a bone scan done and the result is increased uptake throughout the left lower extremity. Findings may be due to cellulitis. Foot x-ray was also done and the impression is no acute abnormalities. The patient was kept on IV antibiotics of vancomycin and Unasyn. The patient stated that she was allergic to penicillin, so vancomycin was removed as well as Unasyn, so the patient was kept on Levaquin. The patient was stabilized and cleared. I educated the patient on importance of following up with Infectious Disease doctor for her HIV and to follow up with her PCP in 1 week. The patient understood and verbalized. CONDITION UPON DISCHARGE: Fair. DISPOSITION: The patient is going home. JOB# [id number]
== END 2016-10-20 17:36 | disposition home or self-care (01) | DRG 383 ==
LOC: MSI 00:35
PROVIDERS: ADMIT Internal Medicine; ATTEND Internal Medicine
DX: L03.032 Cellulitis of left toe (principal); E43 Unspecified severe protein-calorie malnutrition; E11.65 Type 2 diabetes mellitus with hyperglycemia; I10 Essential (primary) hypertension; F41.9 Anxiety disorder, unspecified; F32.9 Major depressive disorder, single episode, unspecified; E66.01 Morbid (severe) obesity due to excess calories; Z68.30 Body mass index [BMI] 30.0-30.9, adult; Z89.421 Acquired absence of other right toe(s); Z88.6 Allergy status to analgesic agent; Z88.5 Allergy status to narcotic agent; Z88.8 Allergy status to other drugs, medicaments and biological substances; Z88.1 Allergy status to other antibiotic agents; Z21 Asymptomatic human immunodeficiency virus [HIV] infection status
CPT/HCPCS: 36415-UA; 73630-TC-LT; 78315-TC; 80048-TC; 80053-TC; 80202-TC; 81001-TC; 82140-TC; 82607-90; 82746-90; 82948-90; 83036-90; 84443-TC; 85007-TC; 85027-TC; 85610-TC; 85652-TC; 86141-TC; 86360-90; 94760; A9503; J0295; J1170; J1200; J1644; J1815; J1956; J2405; J3370; J7030; Z7610

== ENCOUNTER 2016-11-12 01:20 | Inpatient (IN) | payer MEDICAID ==
[2016-11-12] MEDS ORDERED: Sodium Chloride 0.9% 2,000 ML IV ONE (01:52)
[2016-11-12] MEDS ORDERED: HYDROmorphone 1 mg/mL 1mL Syr IVP STA (01:54)
--- NOTE | 2016-11-12 02:00 | ED Physician Chart ---
Chief Complaint/HPI - Patient Information Date Seen:: 11/12/16 Time Seen:: 01:40 Chief Complaint:: vomiting and diarrhea History of Present Illness:: patient developed vomiting and diarrhea 3 hr ago. Has had both vomiting and diarrhea 3 times. Has lower abdominal crampy pain, chills and muscle and joint pain. Allergies:: Allergies Allergy/AdvReac Type Severity Reaction Status Date / Time acetaminophen [From Percocet] Allergy Verified 10/17/16 03:23 aspirin Allergy Verified 08/17/16 06:01 codeine Allergy Verified 08/17/16 06:01 morphine Allergy Verified 10/17/16 03:22 oxycodone [From Percocet] Allergy Verified 10/17/16 03:23 Vitals:: Vital Signs - 8 hr 11/12/16 01:20 Temp 98.5 F HR 115 RR 20 BP 115/78 O2 Sat % 100 Historian:: Patient Review:: Nurse's Note Reviewed <Yimi Carlisle - Last Filed: 11/12/16 06:42> - Patient Information Allergies:: Allergies Allergy/AdvReac Type Severity Reaction Status Date / Time acetaminophen [From Percocet] Allergy Verified 10/17/16 03:23 aspirin Allergy Verified 08/17/16 06:01 codeine Allergy Verified 08/17/16 06:01 morphine Allergy Verified 10/17/16 03:22 oxycodone [From Percocet] Allergy Verified 10/17/16 03:23 Vitals:: Vital Signs - 8 hr 11/12/16 11/12/16 11/12/16 01:20 03:22 07:15 Temp 98.5 F 98.2 F 98.1 F HR 115 92 101 RR 20 17 18 BP 115/78 126/82 153/81 O2 Sat % 100 100 98 <Dylan Hawk - Last Filed: 11/12/16 07:52> Review of Systems - Review of Systems General/Constitutional: Chills Skin: No skin lesions Head: No headache Eyes: No loss of vision ENT: No earache Neck: No neck pain Cardio Vascular: No chest pain, No palpitations Pulmonary: No SOB GI: Nausea, Vomiting, Diarrhea G/U: No dysuria Musculoskeletal: Bone or joint pain, Muscle pain Endocrine: No polyuria, No polydipsia Psychiatric: No prior psych history Hematopoietic: No bruising Allergic/Immuno: No urticaria Neurological: No syncope <Yimi Carlisle - Last Filed: 11/12/16 06:42> Past Medical History - Past Medical History Past Medical History: HTN, DM, Other (HIV positive for 12 years) Family History: Diabetes Melitus, HTN Social History: Non Smoker, No Alcohol Surgical History: Appendectomy, other (amputation two toes right foot) Psychiatricy History: None <Yimi Carlisle - Last Filed: 11/12/16 06:42> Family Medical History - Family Member Mother Ethnicity: Living Status: Still Living Hx Family Cancer: No Hx Family Coronary Artery Disease: No Hx Family Congestive Heart Failure: No Hx Family Hypertension: Yes Hx Family Stroke: No Hx Family Diabetes: Yes Hx Family Seizures: No Hx Family Dementia: No Hx Family AIDS: No Hx Family HIV: No Hx Family COPD: No Hx Family Hepatitis: No Hx Family Psychiatric Problems: No Hx Family Tuberculosis: No <Yimi Carlisle - Last Filed: 11/12/16 06:42> Physical Exam - Physical Examination General/Constitutional: Well-developed, well-nourished, Alert, No distress Head: Atraumatic Eyes: Lids, conjuctiva normal, PERRL Other Skin comments:: 8 mm superficial crusting ulcer lateral left small toe. ENMT: External ears, nose nl, TM canals nl Neck: No nuchal rigidity Respiratory: Nl effort/Exclusion, Clear to Auscultation Cardio Vascular: RRR, No murmur, gallop, rubs, NL S1 S2 GI: No organomegaly, No hernia, Normal BS's, Nondistended, No mass/bruits Other GI comments:: diffuse tenderness without guarding : No CVA tenderness Extremities: Normal digits & nails Neuro/Psych: No focal deficits Misc: No paraspinal tenderness <Yimi Carlisle - Last Filed: 11/12/16 06:42> Labs/Radiology/EKG Results - Lab Results Results: Laboratory Results - last 24 hr 11/12/16 11/12/16 11/12/16 02:05 02:05 02:34 WBC 12.7 H D RBC 3.84 Hgb 9.5 L Hct 28.4 L MCV 74.0 L MCH 24.7 L MCHC Differential 33.3 RDW 14.6 Plt Count 431 H MPV 7.5 Neutrophils % 74.4 Lymphocytes % 20.5 Monocytes % 4.2 Eosinophils % 0.8 Basophils % 0.1 Sodium 129 L Potassium 4.0 Chloride 107 Carbon Dioxide 16.4 L Anion Gap 9.6 BUN 40 H Creatinine 3.1 H Est GFR ( Amer) 21.9 Est GFR (Non-Af Amer) 18.1 BUN/Creatinine Ratio 12.9 Glucose 168 H Whole Bld Lactic Acid 2.15 H* Calcium 8.2 L Magnesium 1.9 11/12/16 04:39 WBC RBC Hgb Hct MCV MCH MCHC Differential RDW Plt Count MPV Neutrophils % Lymphocytes % Monocytes % Eosinophils % Basophils % Sodium 129 L Potassium 4.2 Chloride 114 H Carbon Dioxide 14.6 L Anion Gap 4.6 L BUN 39 H Creatinine 2.8 H Est GFR ( Amer) 24.6 Est GFR (Non-Af Amer) 20.3 BUN/Creatinine Ratio 13.9 Glucose 97 Whole Bld Lactic Acid 0.82 Calcium 7.7 L Magnesium <Yimi Carlisle - Last Filed: 11/12/16 06:42> - Lab Results Results: Laboratory Tests 11/12/16 11/12/16 11/12/16 02:05 02:05 02:34 WBC 12.7 H D RBC 3.84 Hgb 9.5 L Hct 28.4 L MCV 74.0 L MCH 24.7 L MCHC Differential 33.3 RDW 14.6 Plt Count 431 H MPV 7.5 Neutrophils % 74.4 Lymphocytes % 20.5 Monocytes % 4.2 Eosinophils % 0.8 Basophils % 0.1 Sodium 129 L Potassium 4.0 Chloride 107 Carbon Dioxide 16.4 L Anion Gap 9.6 BUN 40 H Creatinine 3.1 H Est GFR ( Amer) 21.9 Est GFR (Non-Af Amer) 18.1 BUN/Creatinine Ratio 12.9 Glucose 168 H Whole Bld Lactic Acid 2.15 H* Calcium 8.2 L Magnesium 1.9 11/12/16 04:39 WBC RBC Hgb Hct MCV MCH MCHC Differential RDW Plt Count MPV Neutrophils % Lymphocytes % Monocytes % Eosinophils % Basophils % Sodium 129 L Potassium 4.2 Chloride 114 H Carbon Dioxide 14.6 L Anion Gap 4.6 L BUN 39 H Creatinine 2.8 H Est GFR ( Amer) 24.6 Est GFR (Non-Af Amer) 20.3 BUN/Creatinine Ratio 13.9 Glucose 97 Whole Bld Lactic Acid 0.82 Calcium 7.7 L Magnesium - Radiology Results Results: 0745: Above per Dr. Carlisle. Dr. Carlisle has complete note, above. He stated Dr. Bobby had not yet returned call. Chart reviewed. Serum acetone, BHCG, and UA ordered. Dr. Bobby was contacted and is giving orders. <Dylan Hawk - Last Filed: 11/12/16 07:52> Assessment - Assessment General Assessment: pain only slightly improved <Yimi Carlisle - Last Filed: 11/12/16 06:42> ED Septic Shock - <6hrs of presentation: Vital Signs: Vital Signs - 8 hr 11/12/16 01:20 Temp 98.5 F HR 115 RR 20 BP 115/78 O2 Sat % 100 <Yimi Carlisle - Last Filed: 11/12/16 06:42> - . Is Septic Shock (SBP<90, OR Lactate>4 mmol\L) present?: No - <6hrs of presentation: Vital Signs: Vital Signs - 8 hr 11/12/16 11/12/16 11/12/16 01:20 03:22 07:15 Temp 98.5 F 98.2 F 98.1 F HR 115 92 101 RR 20 17 18 BP 115/78 126/82 153/81 O2 Sat % 100 100 98 <Dylan Hawk - Last Filed: 11/12/16 07:52> Reassessment (Disposition) - Reassessment Reassessment Condition:: Improved - Diagnosis Diagnosis:: anemia; renal insufficiency; metabolic acidosis; leukocytosis - Patient Disposition Admitted to:: Med/Surg Spoke to:: Jhony Bateman Admitting Medical Physician:: Jhony Bateman Condition at Disposition:: Stable, Improved <Yimi Carlisle - Last Filed: 11/12/16 06:42>
[2016-11-12] MEDS ORDERED: HYDROmorphone 1 mg/mL 1mL Syr ONE (02:04)
[2016-11-12 02:16] LABS: % BASOPHILS 0.1 % (0.0-2.0); % EOSINOPHILS 0.8 % (0.0-5.0); % LYMPHOCYTES 20.5 % (20.0-50.0); % MONOCYTES 4.2 % (2.0-10.0); % NEUTROPHILS 74.4 % (40.0-80.0); HEMATOCRIT 28.4 % (35.0-45.0); HEMOGLOBIN 9.5 gm/dL (11.7-15.5); MEAN CORPUSCULAR HEMOGLOBIN 24.7 pg (27.0-31.0); MEAN CORPUSCULAR HGB CONC 33.3 pg (28.0-36.0); MEAN PLATELET VOLUME 7.5 fl; NEUTROPHILE ABSOLUTE 9.5 Th/cmm (1.8-8.0); PLATELET COUNT 431 Th/cmm (150-400); RED BLOOD COUNT 3.84 Mil/cmm (3.80-5.10); RED CELL DISTRIBUTION WIDTH 14.6 % (11.5-20.0)
[2016-11-12 02:19] LABS: WHITE BLOOD COUNT 12.7 Th/cmm (4.8-10.8)
[2016-11-12 02:27] LABS: ANION GAP 9.6 (7.0-16.0); BUN/CREATININE RATIO 12.9; CALCIUM SERUM 8.2 mg/dL (8.6-10.3); CARBON DIOXIDE 16.4 mEq/L (21.0-31.0); CREATININE - SERUM 3.1 mg/dL (0.6-1.2); MAGNESIUM 1.9 mg/dL (1.9-2.7)
[2016-11-12 05:25] LABS: ANION GAP 4.6 (7.0-16.0); BUN/CREATININE RATIO 13.9; CARBON DIOXIDE 14.6 mEq/L (21.0-31.0); CREATININE - SERUM 2.8 mg/dL (0.6-1.2)
[2016-11-12 05:32] LABS: POTASSIUM SERUM 4.2 mEq/L (3.5-5.1)
[2016-11-12 05:33] LABS: CALCIUM SERUM 7.7 mg/dL (8.6-10.3)
[2016-11-12] MEDS ORDERED: D5-0.45NS 1,000 ML IV SCH (09:00)
[2016-11-12] MEDS ORDERED: Levofloxacin 500mg/100mL 500 MG/100 ML BAG IV SCH (09:15)
[2016-11-12] MEDS: D5-0.9%NS 1,000 ML IV SCH (11:27)
[2016-11-12] MEDS: INSULIN ASPART SLIDING SCALE 100 UNITS/ML UNIT SUBQ SCH (11:51)
[2016-11-12] MEDS: Lactobacillus Rhamnosus 10 Billion CFU Capsule PO SCH (13:22)
[2016-11-12] MEDS: metroNIDAZOLE 500mg/NS 100mL 500 MG/100 ML BAG IV SCH ×2 (13:24→17:42)
--- NOTE | 2016-11-12 14:06 | History & Physical ---
PATIENT IDENTIFICATION: The abdominal pain is a 36-year-old female. CHIEF COMPLAINT: Nausea, vomiting, diarrhea. 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 The patient stated that she has foot ulcers on her left fifth toe and for that, the patient was getting her antibiotics. The patient was seen by Emergency Room MD. The patient did have initial workup due to leukocytosis with hyponatremia and creatinine of 3.1. The patient was also noted to have elevated lactic acid of 2.15. The patient was advised to be admitted in the hospital for further treatment. PAST MEDICAL HISTORY: Remarkable for: 1. Hypertension. 2. HIV positive. 3. Diabetes mellitus. 4. Hyperlipidemia. 5. Obesity. MEDICATIONS AT HOME: She is taking Epzicom. The patient was taking Cipro and Lantus, Humalog, Lopressor and atorvastatin, benazepril and Tivicay. ALLERGIES: THE PATIENT IS ALLERGIC TO CODEINE, MORPHINE, OXYCODONE, ASPIRIN AND TYLENOL. SOCIAL HISTORY: The patient lives in [facility]. The patient does not smoke, does not drink, does not take any drugs. FAMILY MEDICAL HISTORY: Remarkable for diabetes. REVIEW OF SYSTEMS: The patient currently denies any headache, blurred vision, double vision. The patient has lot of cramps. Denies any chest pain. Denies any abdominal pain. Denies any hematemesis, hematuria, hematochezia, melena, no seizure or syncopal episode. Denies any joint pain. PHYSICAL EXAMINATION: GENERAL: Alert, awake, oriented, lying in the bed. VITAL SIGNS: Temperature 97.9, pulse is 90, respiratory rate 18, blood pressure ____/81. HEENT: Normocephalic, atraumatic. Extraocular muscles are intact. Tongue was pink and coated. No oral lesion noted. No exudate. NECK: Supple, no JVD. No hepatojugular reflux. No lymphadenopathy, thyromegaly. No carotid bruits. HEART: Both heart sounds are regular. No S3, no S4, no murmur. CHEST: Lung equal in expansion, no wheezing, no crackles. ABDOMEN: Soft. No guarding, no rigidity. Liver, spleen not palpable. No palpable mass. EXTREMITIES: No edema, no cyanosis. On the left fifth toe, there is an open wound noted with dry crusted with unstageable wound. There is no tenderness noted. There are multiple toe amputations on the right fourth noted. Peripheral pulses +2. No calf tenderness. NEUROLOGIC: Alert, awake, follows commands. No gross neuro deficits noted. AVAILABLE DIAGNOSTIC DATA: Performed in the Emergency Room has been reviewed. CLINICAL IMPRESSION: 1. Acute onset of gastroenteritis in human immunodeficiency virus. CD4 count is unknown. The patient has taken ciprofloxacin for her diabetic foot ulcer, needs to rule out for C. diff colitis with possible gastroenteritis. If CD4 count is unknown, cannot rule out other opportunistic infection. 2. Electrolyte imbalance. 3. Hypertension. 4. Acute on chronic kidney injury. 5. Diabetes mellitus, type 1. 6. Obesity. 7. Left foot diabetic ulcer. 8. Hyperlipidemia. PLAN: 1. Admit this patient to Med/Surg floor. 2. IV fluid. 3. IV antibiotic. 4. GI, ID and Nephrology consultation. 5. Appropriate home medicine reconciliation. 6. Proton pump inhibitor. 7. General nursing care 8. Follow lab. 9. Follow consult recommendation. 10. Stool studies. 11. C. diff toxin. 12. Care plan reviewed and discussed. JOB# [id number]
--- NOTE | 2016-11-12 21:17 | Admit Criteria Form ---
Admit Criteria Forms - Admit Criteria Diagnosis: ANEMIA, IRON DEFICIENCY OR UNSPECIFIED Clinical Indications for Inpatient Care (Place 'X' for any and all applicable criteria): Admission is indicated for ANY ONE of the following(1)(2)(3)(4)(5)(6)(7): [X] I. Inpatient admission required rather than observation care (Also use Anemia, Iron Deficiency or Unspecified: Observation Care guideline as appropriate) because of ANY ONE of the following: [] a) Hemodynamic instability that is severe or persistent [] b) Active bleeding that cannot be rapidly controlled [] c) CVS symptoms (i.e., dyspnea, chest pain, heart failure) that are severe or persistent [] d) Neurologic symptoms (i.e., cognitive impairment, recurrent syncope or near syncope) that are severe or persistent [] e) Cardiac arrhythmias of immediate concern [] f) Acute peripheral ischemia (e.g., pulseless, cool, mottled, or cyanotic extremity) [] g) High-risk low platelet count [X] h) Acute renal failure [] i) Ongoing transfusion for blood loss (greater than 2 units) [] j) IV fluid to replace significant ongoing (eg, >24 hours) losses (> 3 L/m2 per day) [] k) Pulmonary artery catheter monitoring [] l) Supplemental oxygen or respiratory treatments for over 24 hours that are performable only in acute inpatient setting [] m) Immediate inpatient surgery [] n) Other condition, treatment or monitoring requiring inpatient admission [] II Active massive hemorrhage [] III. Active hemolysis with rapidly progressive anemia [A](6) Extended stay beyond goal length of stay may be needed for (17)(18) []a) Diagnosed cause of anemia requiring longer hospitalization (eg, active GI bleeding, immune hemolysis requiring electrophoresis, complications of malignancy requiring acute care []b) Continued emergent anemia indicators (23) []c) Transfusion reactions []d) Associated leukopenia or thrombocytopenia needing inpatient care []e) Active comorbidities (eg, renal failure, heart failure) The original [employer] content created by [employer] has been revised. The portions of the content which have been revised are identified through the use of italic text or in bold. [employer] has neither reviewed nor approved the modified material. All other unmodified content is copyright [employer]. Please see references footnoted in the original [facility] edition 2016 Admit Criteria Met?: Yes
[2016-11-13] MEDS: metroNIDAZOLE 500mg/NS 100mL 500 MG/100 ML BAG IV SCH ×4 (00:28→17:09)
--- NOTE | 2016-11-13 00:28 | Consultation ---
ATTENDING PHYSICIAN: Dr. Jhony Bateman. CAMPER ASSEMBLER: Dr. Trung Tran. REASON FOR CONSULTATION: Worsening kidney function, electrolyte imbalance and fluid management. HISTORY OF PRESENT ILLNESS: This is a 36-year-old female with past medical history of chronic kidney disease who came in because of acute diarrhea. A few hours prior to admission, she developed watery diarrhea. This was associated with some vomiting. She then suddenly had generalized weakness. This prompted her to proceed to the Emergency Room. She stated that her oral intake had diminished for several days prior to this. She has a history of chronic kidney disease. She came in with sodium of 129, BUN/creatinine of 48/3.1. She was started on IV hydration. Her sodium is still 129, but BUN/creatinine came slightly improved to 39/2.8. She has no history of fever/chills, headaches and dizziness, but does have some abdominal pain. PAST MEDICAL HISTORY: 1. Chronic kidney disease. 2. HIV for 12 years. 3. Left foot cellulitis. 4. Right foot osteomyelitis. 5. Essential hypertension. PAST SURGICAL HISTORY: 1. Status post appendectomy. 2. 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 MEDICATIONS: Currently on abacavir, Dolutegravir, atorvastatin, benazepril, cyclobenzaprine, Dilaudid, insulin aspart, Lactobacillus, levofloxacin, metoprolol, ondansetron, pantoprazole and metronidazole. ALLERGIES: Acetaminophen, aspirin, codeine, morphine and oxycodone. SOCIAL HISTORY: Denied any history of alcohol and tobacco use. 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 FAMILY HISTORY: Noncontributory to present illness. REVIEW OF SYSTEMS: CONSTITUTIONAL: She did complain of sudden generalized weakness, no fever, no chills, appetite was poor. HEENT: Denied any headaches nor dizziness. Vision and hearing acuity remains within acceptable limits. CARDIORESPIRATORY: No history of chest pain, palpitations, diaphoresis or cough. She has hypertension. MUSCULOSKELETAL: Denied any arthralgias. GENITOURINARY: History of chronic kidney disease. At this point, no dysuria or hematuria. HEMATOLOGIC: She has anemia of chronic disease. NEUROPSYCH: No syncopal episode nor seizure activity. She has some form of neuropathy. PHYSICAL EXAMINATION: GENERAL: The patient is awake, very weak and arousable. VITAL SIGNS: Blood pressure is 150/92, pulse 97 and temperature 97.9 degrees. SKIN: Poor turgor, warm. No rash and no jaundice appreciated. HEENT: Head: Normocephalic and atraumatic. Eyes: Extraocular muscles intact. Pupils equal, round, reactive to light and accommodates. Anicteric sclerae. Pale conjunctivae. Nose: Midline nasal septum. Mouth: Dry mucosa with very poor dentition. NECK: Supple. No adenopathy, no thyromegaly and no bruits. Trachea palpated in the midline. CHEST AND CVS: S1 and S2. No rub, murmur nor gallop appreciated. Point of maximal impulse is in fifth intercostal space, left midclavicular line. No abdominal or femoral bruits appreciated. LUNGS: Equal expansion. No use of accessory muscles. No supraclavicular retractions, decreased breath sounds, clear to auscultation without any wheeze. BREASTS: Symmetrical without any discharge. ABDOMEN: Flat and soft. Positive for bowel sounds, presence of nonspecific tenderness on palpation, no rigidity nor muscle guarding. RECTAL: The patient refused. GENITOURINARY: Normal appearing female genitalia. MUSCULOSKELETAL: No effusions present in her joints with limited range of motion. EXTREMITIES: She has +2 bipedal edema with amputation of right second and fifth digits. NEUROLOGIC: The patient is alert and verbal. Motor is 5/5. Cranial nerves 2-12 intact. Sensory intact. LABORATORY DATA: Revealed sodium 129, potassium 4.2, chloride 114, bicarbonate is ____. BUN 39, creatinine 2.8 and glucose 97. Lactic acid 0.82, calcium 7.7. White count 12.7, hemoglobin 9.5, hematocrit 28.4, platelets 431 and MCV 74. IMPRESSION: 1. Acute kidney injury on chronic kidney disease MDRD GFR 24 mL per minute, stage 4. The patient's chronic kidney disease is secondary to human immunodeficiency virus associated nephropathy with possible underlying hypertensive nephrosclerosis. Acute kidney injury is possibly prerenal initially due to a decrease in oral intake follow by severe diarrhea. Her physical exam revealed poor skin turgor with dry oral mucosa. These manifestations are suggestive of underlying dehydration. There had been a decrease in her effective circulating volume. Thus, her prerenal azotemia may have progressed to acute tubular injury. 2. Diarrhea, likely infectious (bacteria) in nature giving rise to acute gastroenteritis. 3. Human immunodeficiency virus. 4. Left foot cellulitis. 5. Right foot osteomyelitis, status post right first and fifth digit amputation. 6. Essential hypertension. 7. Non-GAP metabolic acidosis secondary to diarrhea. 8. Hyponatremia secondary to increased sodium loss compared to water loss during her diarrhea. 9. Microcytic anemia, likely iron insufficiency. Continue with iron deficiency as well as due to a chronic disease such as human immunodeficiency virus. PLAN: 1. Continue with IV fluids. 2. Urinalysis. 3. Urine spot sodium, eosinophils and creatinine. 4. Urine microalbumin to creatinine ratio. 5. Renal ultrasound. 6. Follow up electrolytes. Thank you, Dr. Bateman for this consult and we will follow the patient closely with you. JOB# [id number]
[2016-11-13] MEDS: INSULIN ASPART SLIDING SCALE 100 UNITS/ML UNIT SUBQ SCH ×4 (00:41→16:23)
--- NOTE | 2016-11-13 05:36 | Consultation ---
GASTROENTEROLOGY CONSULTATION REQUESTING PHYSICIAN: Dr. Jhony Bateman. REASON FOR CONSULTATION: Nausea, vomiting, and diarrhea. HISTORY OF PRESENT ILLNESS: A 36-year-old female with multiple admissions here in the past. She has HIV positivity, she is on antiviral treatment with good control of her viral load which is undetectable, most recent CD4 count was in the 300-400 range. The patient also has diabetes mellitus, that is insulin-dependent; hypertension; and chronic kidney disease. She has history of peripheral vascular disease and left foot cellulitis, status post recent course of antibiotics. She has a history of right foot osteomyelitis requiring amputation of 2 toes in her right foot. She received a recent course of antibiotics for her left foot cellulitis, this finished last week. Yesterday she woke up with nausea, vomiting, and diarrhea. There were no recent sick contacts or recent travel. On admission here, she had mild leukocytosis with a WBC of 12.7. She was mildly anemic with a hemoglobin of 9.5, sed rate was 95. INR was normal. Creatinine was 2.8. Liver enzymes were normal. Thyroid profile was normal. A CT of the abdomen and pelvis was last done in August of 2016, which showed moderate stool throughout the colon, [id number] free fluid in the pelvis, indeterminate right lobe liver lesion, also another 1.5 cm lesion, mildly distended gallbladder without stones, and distended urinary bladder. PAST MEDICAL HISTORY: As above. MEDICATIONS: Lipitor, Lotensin, insulin sliding scale, Levaquin, Flagyl, Lopressor, HIV medications, Zofran, and Protonix. ALLERGIES: ACETAMINOPHEN, ASPIRIN, CODEINE, MORPHINE, and OXYCODONE. SOCIAL HISTORY: No recent tobacco, alcohol, or drugs. FAMILY HISTORY: Noncontributory. REVIEW OF SYSTEMS: Negative. PHYSICAL EXAMINATION: VITAL SIGNS: Temperature 97.9, blood pressure 141/84, pulse of 98, respirations are 16, O2 sat 98%. GENERAL: The patient is well-developed, well-nourished female, in no acute distress. HEENT: Sclerae nonicteric. Oropharynx is clear. CARDIOVASCULAR: Regular rate and rhythm. LUNGS: Clear to auscultation bilaterally. ABDOMEN: Soft, mildly distended. EXTREMITIES: No clubbing, cyanosis, or edema. RECTAL: Deferred. LABORATORY DATA AND IMAGING: WBC 12.7, hemoglobin 9.5, platelet count is 431. Other labs are as per history of present illness. IMPRESSION: 1. Nausea, vomiting, and diarrhea. Rule out gastroparesis, colitis from infectious cause such as C. diff or other bacterial etiology; also could be from constipation and overflow diarrhea given history of chronic pain syndrome and history of multiple narcotics in the past. 2. History of human immunodeficiency virus positivity. 3. History of diabetes mellitus, hypertension, and chronic kidney disease. 4. History of peripheral vascular disease and right toe amputation x 2, also history of left foot cellulitis requiring recent antibiotics. RECOMMENDATIONS: 1. Continue antibiotics as ordered; also add probiotics. Continue Protonix and antiemetics. 2. Check stool studies. 3. Check CT of the abdomen and pelvis with oral contrast to rule out colitis. 4. Clear liquid diet for now and advance as tolerated. 5. May need endoscopic workup if symptoms persist and if stool studies are negative. Thank you Dr. Jhony Bateman for involving us in the care of your patient. If you have any further questions, please call us. JOB# [id number] [id number]
[2016-11-13] MEDS: D5-0.9%NS 1,000 ML IV SCH ×2 (06:20→12:53)
[2016-11-13 06:27] LABS: URINE BILIRUBIN NEGATIVE (NEGATIVE); URINE COLOR YELLOW; URINE GLUCOSE (UA) 500 mg/dL (NEGATIVE); URINE KETONE NEGATIVE (NEGATIVE)
[2016-11-13 06:28] LABS: URINE BACTERIA NONE SEEN /hpf (NONE SEEN); URINE BLOOD SMALL (NEGATIVE); URINE EPITHELIAL CELLS NONE SEEN /lpf (FEW); URINE PROTEIN >300 mg/dL (NEGATIVE); URINE RBC 0-2 /hpf (0-5); URINE UROBILINOGEN 0.2 E.U./dL (0.2 - 1.0); URINE WBC 0-2 /hpf (0-5)
[2016-11-13 06:32] LABS: HEMATOCRIT 27.1 % (35.0-45.0); HEMOGLOBIN 9.2 gm/dL (11.7-15.5); MEAN CORPUSCULAR HEMOGLOBIN 25.1 pg (27.0-31.0); MEAN CORPUSCULAR HGB CONC 33.9 pg (28.0-36.0); MEAN PLATELET VOLUME 8.1 fl; PLATELET COUNT 376 Th/cmm (150-400); RED BLOOD COUNT 3.66 Mil/cmm (3.80-5.10)
[2016-11-13 06:35] LABS: ALB/GLOB RATIO 0.6 (1.0-1.8); ANION GAP 3.6 (7.0-16.0); BILIRUBIN,TOTAL 0.2 mg/dL (0.3-1.0); BUN/CREATININE RATIO 11.1; CALCIUM SERUM 8.1 mg/dL (8.6-10.3); CARBON DIOXIDE 14.6 mEq/L (21.0-31.0); CREATININE - SERUM 2.7 mg/dL (0.6-1.2); PHOSPHOROUS 3.3 mg/dL (2.5-5.0); POTASSIUM SERUM 4.2 mEq/L (3.5-5.1); URIC ACID 5.3 mg/dL (2.3-6.6)
[2016-11-13] MEDS: Lactobacillus Rhamnosus 10 Billion CFU Capsule PO SCH (08:18)
[2016-11-13] MEDS ORDERED: DOLUTEGRAVIR SODIUM 50 MG PO SCH (09:00)
[2016-11-13] MEDS ORDERED: LAMIVUDINE PO SCH (09:00)
[2016-11-13] MEDS ORDERED: ABACAVIR SULFATE PO SCH (09:00)
--- NOTE | 2016-11-13 09:34 | Consultation ---
INFECTIOUS DISEASE CONSULTATION REFERRING PHYSICIAN: Dr. Bateman. REASON FOR CONSULTATION: HIV and nausea and vomiting. HISTORY OF PRESENT ILLNESS: The patient is a 36-year-old female with a past medical history of diabetes mellitus type 2, who developed nausea, vomiting, and diarrhea for last 2 days. She also has a right foot ulcer on the fifth toe with swelling and darkening of the toe associated with the pain. With the current treatment, her nausea and vomiting have improved. On initial evaluation, the patient's temperature was 98.5 degrees Fahrenheit, and WBC count was 12,700. Lactic acid was 2.15, which has improved to 0.82. Her CD4 count was 344 with 12%. ID consult was called for further evaluation and management. Meanwhile, the patient was already started on Levaquin and Flagyl. PAST MEDICAL HISTORY: HIV for 12 years, diabetes mellitus, diabetic foot ulcer in the past, CKD stage 3, dyslipidemia, peripheral neuropathy, proteinuria, hypertension, and anemia. ALLERGIES: NKDA. MEDICATIONS: As per medication reconciliation sheet. Antibiotic marquez, the patient is on Levaquin and Flagyl. Antiretroviral therapy includes Tivicay and Epzicom. ALLERGIES: The patient has allergies to CODEINE, MORPHINE, OXYCODONE, ASPIRIN, AND TYLENOL. SOCIAL HISTORY: The patient lives at [facility]. The patient denies smoking, alcohol, or drug use. 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 FAMILY HISTORY: Remarkable for diabetes mellitus. REVIEW OF SYSTEMS: GENERAL: The patient denies any fever or chills. The patient denies any generalized weakness. HEENT: No diplopia, no photophobia, and no sore throat. RESPIRATORY: No cough, no short of breath. CARDIOVASCULAR: No chest pain or palpitation. GASTROINTESTINAL: No nausea, no vomiting, no diarrhea, and no constipation anymore. GENITOURINARY: No dysuria. NEUROLOGIC: No headache or dizziness. No focal weakness. MUSCULOSKELETAL: The patient has pain in the left foot with swelling of the fifth toe. SKIN: The patient painful swelling of left great toe. PHYSICAL EXAMINATION: VITAL SIGNS: Shows temperature is 98.8 degree Fahrenheit, pulse 86, respirations 18, and blood pressure 150/89. GENERAL: The patient is comfortable, lying in the bed, not in acute distress. Well-nourished, well developed. HEENT: Head is normocephalic and atraumatic. Oral cavity moist, pink tongue. Eyes: No pallor, no icterus. PERRLA. EOMI. NECK: Supple. No JVD. No carotid bruit. Trachea in midline. CHEST: Bilateral vesicular breath sounds. No crackles or wheezing. HEART: S1 and S2 within normal limits. Regular rhythm. No murmur and no gallop. ABDOMEN: Soft, nontender, and nondistended. Bowel sounds present. EXTREMITIES: No cyanosis, no clubbing, and no edema. The patient has swollen legs bilaterally. The patient also has tenderness, swelling of the fifth toe with darkening of the skin, with dry ulcer on lateral aspect. NEUROLOGIC: Alert, awake, and oriented x 3. No focal neuro deficit. LABORATORY DATA: Current labs show WBC count 12,700, hemoglobin 9.5, hematocrit 28.4, and platelets are 431,000, and neutrophil 74%. Sodium 129, potassium 4.2, chloride 114, bicarb is 14.6, BUN is 39, creatinine 2.8, and glucose is 97. The patient's lactic acid was 2.15 and it has improved to 0.82. test is negative. Ketones are negative. CD4 count was 344 with 12.3%. HIV RNA scan was ordered, which was not performed in 10/2016. IMPRESSION: 1. Nausea and vomiting. may have gastroenteritis. 2. Leukocytosis, likely secondary to acute renal failure and dehydration. 3. Acute renal failure and chronic kidney disease. 4. HIV with the CD4 count of 344, unknown viral load. 5. Swelling and pain of the left fifth toe, left foot cellulitis, 6. Swelling of the both thorax and pain, rule out deep vein thrombosis. RECOMMENDATIONS: We will continue antiretroviral therapy including Epzicom and Tivicay. Check HIV viral load, which was not done on last admission. Continue Levaquin and Flagyl. The arterial ultrasound. I asked Dr. Bojorquez, registered nurse surgical services. It is okay with Dr. Bateman. Discussed with RN. Thank you, Dr. Bateman, for involving me in taking care of this patient. JOB# [id number] [facility]
[2016-11-13] MEDS ORDERED: Pneumococcal Vaccine 0.5 mL Vial IM ONE (10:00)
--- NOTE | 2016-11-13 10:16 | Diagnostic Imaging Report ---
Abdominal ultrasound HISTORY: Pain The liver appears enlarged. There is an approximate 3.1 x 2.6 x 2.5 cm hyperechoic lesion within the right lobe of the liver. This corresponds to a previously noted lesions seen on the CT scan of August 19, 2016. Findings may be associated with a hemangioma. A [address] scan would provide additional characterization and assessment. The gallbladder appears normal. No calculi are seen. No biliary dilatation. The pancreas cannot be well seen due to bowel gas. A questionable 3.0 cm focus is noted in the lateral cortex of the right kidney. Again, a CT scan preferably with intravenous contrast would provide additional assessment. The left kidney appears normal. The spleen is normal in size. IMPRESSION: 1. Approximate 3.1 cm hyperechoic lesion within the right lobe of the liver unchanged CT and ultrasound exams of 08/19/2016. The sonographic appearance is suggestive of a hemangioma. A dedicated [address] scan would provide additional characterization. 2. Questionable focus in the cortex of the right kidney. Again, a CT scan preferably with intravenous contrast would provide additional assessment. 3. Hepatomegaly
[2016-11-13] MEDS ORDERED: Levofloxacin 250mg/50mL 250 MG/50 ML BAG IV SCH (11:00)
--- NOTE | 2016-11-13 15:38 | General Progress Note ---
Subjective - Review of Systems Service Date: 11/13/16 Subjective: alert, eager to go home, less diarrhea Objective - Results Result Diagrams: 11/13/16 05:50 11/13/16 05:50 Recent Labs: Laboratory Last Values WBC 7.0 Th/cmm (4.8-10.8) D 11/13/16 05:50 RBC 3.66 Mil/cmm (3.80-5.10) L 11/13/16 05:50 Hgb 9.2 gm/dL (11.7-15.5) L 11/13/16 05:50 Hct 27.1 % (35.0-45.0) L 11/13/16 05:50 MCV 74.0 fl (81-100) L 11/13/16 05:50 MCH 25.1 pg (27.0-31.0) L 11/13/16 05:50 MCHC Differential 33.9 pg (28.0-36.0) 11/13/16 05:50 RDW 15.0 % (11.5-20.0) 11/13/16 05:50 Plt Count 376 Th/cmm (150-400) 11/13/16 05:50 MPV 8.1 fl 11/13/16 05:50 Neutrophils % 74.4 % (40.0-80.0) 11/12/16 02:05 Lymphocytes % 20.5 % (20.0-50.0) 11/12/16 02:05 Monocytes % 4.2 % (2.0-10.0) 11/12/16 02:05 Eosinophils % 0.8 % (0.0-5.0) 11/12/16 02:05 Basophils % 0.1 % (0.0-2.0) 11/12/16 02:05 Eos Smear Source URINE 11/13/16 05:30 Eos Smear Total Cells NONE SEEN (NONE SEEN) 11/13/16 05:30 Sodium 133 mEq/L (136-145) L 11/13/16 05:50 Potassium 4.2 mEq/L (3.5-5.1) 11/13/16 05:50 Chloride 119 mEq/L (98-107) H 11/13/16 05:50 Carbon Dioxide 14.6 mEq/L (21.0-31.0) L 11/13/16 05:50 Anion Gap 3.6 (7.0-16.0) L 11/13/16 05:50 BUN 30 mg/dL (7-25) H 11/13/16 05:50 Creatinine 2.7 mg/dL (0.6-1.2) H 11/13/16 05:50 Est GFR ( Amer) 25.6 ml/min (>90) 11/13/16 05:50 Est GFR (Non-Af Amer) 21.2 ml/min 11/13/16 05:50 BUN/Creatinine Ratio 11.1 11/13/16 05:50 Glucose 238 mg/dL (70-105) H 11/13/16 05:50 POC Glucose 297 MG/DL (70 - 105) H 11/13/16 11:34 Whole Bld Lactic Acid 0.82 mmol/L (0.60-1.99) 11/12/16 04:39 Uric Acid 5.3 mg/dL (2.3-6.6) 11/13/16 05:50 Calcium 8.1 mg/dL (8.6-10.3) L 11/13/16 05:50 Phosphorus 3.3 mg/dL (2.5-5.0) 11/13/16 05:50 Magnesium 2.0 mg/dL (1.9-2.7) 11/13/16 05:50 Total Bilirubin 0.2 mg/dL (0.3-1.0) L 11/13/16 05:50 AST 17 U/L (13-39) 11/13/16 05:50 ALT 10 U/L (7-52) 11/13/16 05:50 Alkaline Phosphatase 87 U/L (34-104) 11/13/16 05:50 Total Protein 5.9 gm/dL (6.0-8.3) L 11/13/16 05:50 Albumin 2.2 gm/dL (3.7-5.3) L 11/13/16 05:50 Globulin 3.7 gm/dL 11/13/16 05:50 Albumin/Globulin Ratio 0.6 (1.0-1.8) L 11/13/16 05:50 Amylase 54 U/L (29-103) 11/13/16 05:50 Lipase 37 U/L (11-82) 11/12/16 02:34 Serum , Qual NEGATIVE (NEGATIVE) 11/12/16 02:18 Urine Source MIDSTREAM 11/13/16 05:00 Urine Color YELLOW 11/13/16 05:00 Urine Clarity CLEAR (CLEAR) 11/13/16 05:00 Urine pH 7.0 11/13/16 05:00 Ur Specific Hen[place]er 1.020 (1.005-1.030) 11/13/16 05:00 Urine Protein >300 mg/dL (NEGATIVE) H 11/13/16 05:00 Urine Glucose (UA) 500 mg/dL (NEGATIVE) H 11/13/16 05:00 Urine Ketones NEGATIVE mg/dL (NEGATIVE) 11/13/16 05:00 Urine Blood SMALL (NEGATIVE) H 11/13/16 05:00 Urine Nitrate NEGATIVE (NEGATIVE) 11/13/16 05:00 Urine Bilirubin NEGATIVE (NEGATIVE) 11/13/16 05:00 Urine Ictotest Not Reportable 11/13/16 05:00 Urine Urobilinogen 0.2 E.U./dL (0.2 - 1.0) 11/13/16 05:00 Ur Leukocyte Esterase NEGATIVE (NEGATIVE) 11/13/16 05:00 Urine RBC 0-2 /hpf (0-5) 11/13/16 05:00 Urine WBC 0-2 /hpf (0-5) 11/13/16 05:00 Ur Epithelial Cells NONE SEEN /lpf (FEW) 11/13/16 05:00 Urine Bacteria NONE SEEN /hpf (NONE SEEN) 11/13/16 05:00 Ur Random Sodium 85 mmol/L 11/13/16 05:30 Urine Creatinine 30.0 mg/dl (28.0-217.0) 11/13/16 05:30 Serum Ketones NEGATIVE (NEGATIVE) 11/12/16 02:18 - Physical Exam Vitals and I&O: Vital Signs Temp 98.1 F 11/13/16 08:00 Pulse 77 11/13/16 15:27 Resp 18 11/13/16 08:00 BP 138/87 11/13/16 15:27 Pulse Ox 98 11/13/16 08:00 Intake & Output 11/12/16 11/13/16 11/13/16 18:59 06:59 18:59 Intake Total 200 1580 1295 Balance 200 1580 1295 Intake: Intake, IV Amount 200 1100 755 D5-0.9%Ns 1,000 ml @ 100 1000 655 mls/hr IV .Q10H [facility] Rx#: [id number] metroNIDAZOLE 500mg/NS 200 100 100 100mL 500 mg In 100 ml @ 100 mls/hr IV Q6HR [facility] Rx #:[id number] Oral 480 540 Other: # Voids 3 3 # Bowel Movements 0 1 Active Medications: Current Medications Atorvastatin Calcium (Lipitor) 40 mg PO DAILY [facility] Stop: 01/12/17 08:59 Last Admin: 11/13/16 08:18 Dose: 40 mg Benazepril HCl (Lotensin) 10 mg PO BID [facility] Stop: 01/11/17 16:59 Last Admin: 11/13/16 08:19 Dose: 10 mg Cyclobenzaprine HCl (Flexeril) 5 mg PO TID PRN PRN Reason: Leg Pain Stop: 01/11/17 13:35 Last Admin: 11/12/16 17:31 Dose: 5 mg Metronidazole (Flagyl) 500 mg in 100 mls @ 100 mls/hr IV Q6HR [facility] Stop: 01/11/17 11:59 Last Admin: 11/13/16 12:54 Dose: 100 mls/hr Dextrose/Sodium Chloride (D5-0.9%Ns) 1,000 mls @ 100 mls/hr IV .Q10H [facility] Stop: 01/11/17 09:29 Last Admin: 11/13/16 12:53 Dose: 100 mls/hr Levofloxacin (Levaquin Pb) 250 mg in 50 mls @ 50 mls/hr IV Q24H [facility] Stop: 01/12/17 10:59 Last Admin: 11/13/16 12:49 Dose: 50 mls/hr Insulin Aspart (Novolog Insulin Sliding Scale) 0 units SUBQ Q6HR [facility] PRN Reason: Protocol Stop: 01/11/17 11:59 Last Admin: 11/13/16 12:58 Dose: Not Given Lactobacillus Rhamnosus (Culturelle) 1 each PO DAILY [facility] Stop: 01/11/17 12:44 Last Admin: 11/13/16 08:18 Dose: 1 each Metoprolol Tartrate (Lopressor) 50 mg PO TID [facility] Stop: 01/11/17 13:59 Last Admin: 11/13/16 15:27 Dose: 50 mg Miscellaneous (Abacavir Sulfate/Lamivudine [Epzicom Tablet]) 300 mg PO DAILY [facility] Stop: 01/12/17 08:59 Miscellaneous (Dolutegravir Sodium [Tivicay]) 50 mg PO DAILY [facility] Stop: 01/12/17 08:59 Miscellaneous (Dolutegravir Sodium [Tivicay]) 50 mg PO BID [facility] Stop: 01/11/17 16:59 Miscellaneous (Clinical Monitoring) 1 ea MC PRN PRN PRN Reason: RENAL DOSE LEVAQUIN Stop: 01/11/17 09:21 Ondansetron HCl (Zofran) 4 mg IV Q6H PRN PRN Reason: Nausea / Vomiting Stop: 01/11/17 09:11 Last Admin: 11/13/16 06:38 Dose: 4 mg Pantoprazole Sodium (Protonix) 40 mg IVP BIDAC [facility] Stop: 01/11/17 09:59 Last Admin: 11/13/16 06:39 Dose: 40 mg General: Alert, Oriented x3, No acute distress HEENT: Atraumatic, Mucous membr. moist/pink Neck: Supple, +2 carotid pulse wo bruit Cardiovascular: Regular rate, Normal S1, Normal S2 Lungs: Clear to auscultation, Normal air movement Abdomen: Bowel sounds, Soft Extremities: no Edema Neurological: Normal speech, Strength at 5/5 X4 ext, Sensation intact, Cranial nerves 3-12 NL Skin: no Rash Psych/Mental Status: Mood NL - Procedures Procedures: Procedures Procedure Code Date TRANSFUSE NONAUT RED BLOOD CELLS IN PERIPH VEIN, PERC 06027Y7 08/17/16 Assessment/Plan - Assessment Assessment: ERIBERTO on CKD Diarrhea HIV Left foot Cellulitis Right foot osteo, S/P amputation toes HTN Nongap Met acid Hyponatremia - Plan Plan: Lab - Result Diagrams 11/13/16 05:50 11/13/16 05:50 Current Medications Atorvastatin Calcium (Lipitor) 40 mg PO DAILY [facility] Stop: 01/12/17 08:59 Last Admin: 11/13/16 08:18 Dose: 40 mg Benazepril HCl (Lotensin) 10 mg PO BID [facility] Stop: 01/11/17 16:59 Last Admin: 11/13/16 08:19 Dose: 10 mg Cyclobenzaprine HCl (Flexeril) 5 mg PO TID PRN PRN Reason: Leg Pain Stop: 01/11/17 13:35 Last Admin: 11/12/16 17:31 Dose: 5 mg Metronidazole (Flagyl) 500 mg in 100 mls @ 100 mls/hr IV Q6HR [facility] Stop: 01/11/17 11:59 Last Admin: 11/13/16 12:54 Dose: 100 mls/hr Dextrose/Sodium Chloride (D5-0.9%Ns) 1,000 mls @ 100 mls/hr IV .Q10H [facility] Stop: 01/11/17 09:29 Last Admin: 11/13/16 12:53 Dose: 100 mls/hr Levofloxacin (Levaquin Pb) 250 mg in 50 mls @ 50 mls/hr IV Q24H [facility] Stop: 01/12/17 10:59 Last Admin: 11/13/16 12:49 Dose: 50 mls/hr Insulin Aspart (Novolog Insulin Sliding Scale) 0 units SUBQ Q6HR [facility] PRN Reason: Protocol Stop: 01/11/17 11:59 Last Admin: 11/13/16 12:58 Dose: Not Given Lactobacillus Rhamnosus (Culturelle) 1 each PO DAILY [facility] Stop: 01/11/17 12:44 Last Admin: 11/13/16 08:18 Dose: 1 each Metoprolol Tartrate (Lopressor) 50 mg PO TID [facility] Stop: 01/11/17 13:59 Last Admin: 11/13/16 15:27 Dose: 50 mg Miscellaneous (Abacavir Sulfate/Lamivudine [Epzicom Tablet]) 300 mg PO DAILY [facility] Stop: 01/12/17 08:59 Miscellaneous (Dolutegravir Sodium [Tivicay]) 50 mg PO DAILY [facility] Stop: 01/12/17 08:59 Miscellaneous (Dolutegravir Sodium [Tivicay]) 50 mg PO BID [facility] Stop: 01/11/17 16:59 Miscellaneous (Clinical Monitoring) 1 ea MC PRN PRN PRN Reason: RENAL DOSE LEVAQUIN Stop: 01/11/17 09:21 Ondansetron HCl (Zofran) 4 mg IV Q6H PRN PRN Reason: Nausea / Vomiting Stop: 01/11/17 09:11 Last Admin: 11/13/16 06:38 Dose: 4 mg Pantoprazole Sodium (Protonix) 40 mg IVP BIDAC [facility] Stop: 01/11/17 09:59 Last Admin: 11/13/16 06:39 Dose: 40 mg Cr. stable @ 2.7 no further diarrhea eager to go home encouraged po fluid intake
--- NOTE | 2016-11-13 18:21 | Discharge Summary ---
PRINCIPAL DIAGNOSES: 1. Acute gastroenteritis, resolved. 2. Human immunodeficiency virus positive. 3. Left fifth toe diabetic foot ulcer. 4. Type 1 diabetes, insulin requiring. 5. Hyperlipidemia. 6. Noncompliance. 7. Obesity. BRIEF STATEMENT FOR THE REASON FOR ADMISSION: This is a 36-year-old -[place] female who presented to Emergency Room with chief complaint of acute onset of nausea, vomiting, and diarrhea. The patient was seen by Emergency Room, Evelio and subsequently admitted to the hospital. Please refer to my dictated medical H and P for further information. HOSPITAL COURSE: The patient was admitted to medical floor. The patient was given IV antibiotics along with IV fluid. Symptoms management was provided with Zofran and proton pump inhibitor. The patient was seen by account manager sales representative along with Infectious Disease. The patient's acute problems were addressed. According to the patient, since she got admitted, there was no diarrhea. There is no nausea. There is no vomiting. The patient did refuse arterial Doppler studies as well as the further ultrasound. The patient did have chronic nonhealing ulcers on the left foot, which was addressed by physicians last month. The patient wanted to go home ____. The patient was admitted. The patient refused to eat clear liquids and she ordered pizza and chicken wings from outside and she ate. Since the patient had no acute symptoms of gastroenteritis, it was advised that the patient should go home and have outpatient followup with fiction and nonfiction prose writer. The patient was discharged without any medication with instructions to resume all her medications to be continued at home, which has been reconciled. The patient has been instructed to go to Emergency Room if recurrent symptoms. JOB# [id number]
== END 2016-11-13 18:00 | disposition home or self-care (01) | DRG 249 ==
LOC: ER 01:20 → MSI 07:35
PROVIDERS: ADMIT Internal Medicine; ATTEND Internal Medicine
DX: K52.9 Noninfective gastroenteritis and colitis, unspecified (principal); N17.9 Acute kidney failure, unspecified; E10.22 Type 1 diabetes mellitus with diabetic chronic kidney disease; E10.42 Type 1 diabetes mellitus with diabetic polyneuropathy; L03.116 Cellulitis of left lower limb; E87.1 Hypo-osmolality and hyponatremia; E10.51 Type 1 diabetes mellitus with diabetic peripheral angiopathy without gangrene; E10.621 Type 1 diabetes mellitus with foot ulcer; I12.9 Hypertensive chronic kidney disease with stage 1 through stage 4 chronic kidney disease, or unspecified chronic kidney disease; N18.9 Chronic kidney disease, unspecified; E78.5 Hyperlipidemia, unspecified; E66.9 Obesity, unspecified; D64.9 Anemia, unspecified; Z88.5 Allergy status to narcotic agent; Z88.6 Allergy status to analgesic agent; Z83.3 Family history of diabetes mellitus; Z82.49 Family history of ischemic heart disease and other diseases of the circulatory system; Z79.4 Long term (current) use of insulin; Z68.28 Body mass index [BMI] 28.0-28.9, adult; Z91.14 Patient's other noncompliance with medication regimen; Z89.421 Acquired absence of other right toe(s)
CPT/HCPCS: 36415-UA; 76700-TC; 80048-TC; 80053-TC; 81001-TC; 81015-TC; 81025-TC; 82010-TC; 82150-TC; 82570-TC; 82947-TC; 82948-90; 83605; 83690-TC; 83735-TC; 83935-90; 84100-TC; 84300-TC; 84550-TC; 85007-TC; 85025-TC; 85027-TC; 87230-TC; 90799; 93925-TC; 93970-TC-50; 96374; 96375; C9113; J1170; J1815; J1956; J2405; J7030; J7042; Z7610